=== PATIENT | male | born 1930 | race Caucasian/White ===

== ENCOUNTER 2017-03-20 11:53 | Emergency (ER) | payer MEDICARE, OTHER ==
--- NOTE | 2017-03-20 12:20 | EDM.PDOC ---
ED HPI GENERAL MEDICAL PROBLEM - General Chief Complaint: Skin Complaint Stated Complaint: INFECTION Time Seen by Provider: 03/20/17 12:00 Source of Information: Reports: Patient, Family History Limitations: Reports: No Limitations - History of Present Illness INITIAL COMMENTS - FREE TEXT/NARRATIVE: 86 YO WM presents to clinic for ruiz catheter leaking around meatus. Daughter states she noticed some redness around the catheter site and wanted to have it evaluated. Pt denies any abdominal pain, no nausea/vomiting and no fever/ chills. Duration: Day(s): (3) Severity: Mild Improves with: Reports: None Worsens with: Reports: None Associated Symptoms: Reports: No Other Symptoms - Related Data Allergies Allergy/AdvReac Type Severity Reaction Status Date / Time No Known Allergies Allergy Verified 03/20/17 11:59 Home Meds: Home Meds Furosemide [Lasix] 20 mg PO WEEKLY 02/20/17 [History] Potassium Chloride 10 meq PO WEEKLY 02/20/17 [History] Finasteride [Proscar] 5 mg PO DAILY 03/20/17 [History] Nystatin [Nystatin Ointment] 30 gm TOP TID #30 tube 03/20/17 [Rx] Past Medical History HEENT History: Reports: Hard of Hearing, Impaired Vision Genitourinary History: Reports: BPH, Retention, Urinary, Other (See Below) Other Genitourinary History: Has ruiz replaced monthly Psychiatric History: Reports: Dementia Social & Family History - Tobacco Use Smoking Status *Q: Never Smoker Second Hand Smoke Exposure: No - Caffeine Use Caffeine Use: Reports: Coffee - Recreational Drug Use Recreational Drug Use: No ED ROS GENERAL - Review of Systems Review Of Systems: See Below Constitutional: Reports: No Symptoms HEENT: Reports: No Symptoms Respiratory: Reports: No Symptoms Cardiovascular: Reports: No Symptoms Endocrine: Reports: No Symptoms GI/Abdominal: Reports: No Symptoms : Reports: No Symptoms Musculoskeletal: Reports: No Symptoms Skin: Reports: Erythema (around glans) Neurological: Reports: No Symptoms Psychiatric: Reports: No Symptoms Hematologic/Lymphatic: Reports: No Symptoms Immunologic: Reports: No Symptoms ED EXAM, SKIN/RASH Exam: See Below Exam Limited By: No Limitations General Appearance: Alert, WD/WN, No Apparent Distress Head: Atraumatic, Normocephalic Neck: Normal Inspection, Supple, Non-Tender, Full Range of Motion Respiratory/Chest: No Respiratory Distress, Lungs Clear, Normal Breath Sounds, No Accessory Muscle Use, Chest Non-Tender Cardiovascular: Normal Peripheral Pulses, Regular Rate, Rhythm, No Edema, No Gallop, No JVD, No Murmur, No Rub GI/Abdominal: Normal Bowel Sounds, Soft, Non-Tender, No Organomegaly, No Distention, No Abnormal Bruit, No Mass (Male) Exam: Rash (erythema with moist white discharge from around the glans penis consistant with balanitis). No: Circumcised, Scrotal Swelling, Scrotum Tenderness (L), Scrotum Tenderness (R), Suprapubic Fullness, Testicular Mass, Testicular Tenderness (L), Testicular Tenderness (R), Urethral Discharge Back Exam: Normal Inspection, Full Range of Motion, NT Extremities: Normal Inspection, Normal Range of Motion, Non-Tender, No Pedal Edema, Normal Capillary Refill Neurological: Alert, Oriented, CN II-XII Intact, Normal Cognition, Normal Gait, Normal Reflexes, No Motor/Sensory Deficits Psychiatric: Normal Affect, Normal Mood Course - Orders/Labs/Meds Orders: Active Orders 24 hr Category Date Time Status Nystatin [Nystatin Ointment] Med 03/20/17 14:00 Ordered 30 gm TOP TID Medication Orders Nystatin (Nystatin Ointment) 30 gm TOP TID [facility] Meds: Medications Generic Name Dose Route Start Last Admin Trade Name Freq PRN Reason Stop Dose Admin Nystatin 30 gm 03/20/17 14:00 Nystatin Ointment TOP TID [facility] Departure - Departure Time of Disposition: 12:23 Disposition: Home, Self-Care 01 Condition: Good Clinical Impression: Balanitis - Discharge Information Prescriptions: Nystatin [Nystatin Ointment] 30 gm TOP TID #30 tube Instructions: Balanitis Referrals: Jean Kaur TECHNICAL SOLUTIONS DIRECTOR [Primary Care Provider] - Forms: ED Department Discharge - My Orders Last 24 Hours: My Active Orders 03/20/17 14:00 Nystatin [Nystatin Ointment] 30 gm TOP TID - Assessment/Plan Last 24 Hours: My Active Orders 03/20/17 14:00 Nystatin [Nystatin Ointment] 30 gm TOP TID Assessment:: 1. balanitis Plan: 1. nystatin ointment TID x 2-4 weeks 2. follow up with Dr Rup for consideration of suprapubic catheter 3. return to ER for worsening symptoms
[2017-03-20] MEDS ORDERED: Nystatin Ointment 15 GM Tube TOP SCH (14:00)
== END 2017-03-20 12:30 | disposition home or self-care (01) ==
LOC: KA.ED 11:53
DX: N48.1 Balanitis (principal)
CPT/HCPCS: 99283; A9270

== ENCOUNTER 2017-07-09 07:35 | Emergency (ER) | payer MEDICARE, OTHER ==
--- NOTE | 2017-07-09 08:31 | EDM.PDOC ---
ED HPI GENERAL MEDICAL PROBLEM - General Chief Complaint: Tube Replacement Stated Complaint: CATHETER Time Seen by Provider: 07/09/17 08:17 Source of Information: Reports: Patient, Family (daughters) History Limitations: Reports: Other (Patient has dementia and is poor historian) - History of Present Illness INITIAL COMMENTS - FREE TEXT/NARRATIVE: Patient brought to ER by daughters with complaint of blood from urethra around in dwelling ruiz catheter. They assume he was pulling on it and guess it is because he has a different bag on it than usual. Pt has advanced dementia and lives in an apartment with his . Patient is complaining repeatedly to me that he has terrible pain in the abdomen. He can't tell me much else. Family doesn't know how passage of stool and gas has been recently. Not aware of any fevers. He just finished a course of antibiotics (three days ago) for an assumed UTI that turned out to not be UTI. Daughter not aware of any kidney disease and he uses Ibuprofen prn at home. Patient would like something for the abdominal pain. - Related Data Allergies Allergy/AdvReac Type Severity Reaction Status Date / Time No Known Allergies Allergy Verified 07/09/17 11:52 Home Meds: Home Meds Furosemide [Lasix] 20 mg PO WEEKLY 02/20/17 [History] Potassium Chloride 10 meq PO WEEKLY 02/20/17 [History] Finasteride [Proscar] 5 mg PO DAILY 03/20/17 [History] Nystatin [Nystatin Ointment] 30 gm TOP TID #30 tube 03/20/17 [Rx] Past Medical History HEENT History: Reports: Hard of Hearing, Impaired Vision Genitourinary History: Reports: BPH, Retention, Urinary, Other (See Below) Other Genitourinary History: Has ruiz replaced monthly Psychiatric History: Reports: Dementia Social & Family History - Tobacco Use Smoking Status *Q: Never Smoker Second Hand Smoke Exposure: No - Caffeine Use Caffeine Use: Reports: Coffee - Recreational Drug Use Recreational Drug Use: No ED ROS GENERAL - Review of Systems Review Of Systems: Unable To Obtain (complete ROS is unobtainable but I got what I could) Constitutional: Denies: Fever Respiratory: Denies: Shortness of Breath Cardiovascular: Denies: Chest Pain GI/Abdominal: Reports: Abdominal Pain. Denies: Vomiting : Reports: Hematuria Skin: Denies: Cyanosis, Jaundice, Mottled, Pallor, Diaphoresis Neurological: Reports: Confusion Psychiatric: Reports: Agitation, Confusion ED EXAM, GENERAL - Physical Exam Exam: See Below Exam Limited By: Other (dementia) General Appearance: Alert, WD/WN Eye Exam: Bilateral Eye: EOMI, Normal Inspection, PERRL Ears: Normal External Exam, Hearing Grossly Normal Nose: Normal Inspection, No Blood Throat/Mouth: Normal Inspection, Normal Lips, Normal Voice, No Airway Compromise Head: Atraumatic, Normocephalic Neck: Normal Inspection, Full Range of Motion Respiratory/Chest: No Respiratory Distress, Lungs Clear, Normal Breath Sounds, No Accessory Muscle Use Cardiovascular: Regular Rate, Rhythm, Systolic Murmur GI/Abdominal: Distended, Tender (throughout to mild palpation; doesn't tolerate firm palpation and seems to be distension rather than rigidity.), Abnormal Bowel Sounds (decreased), Hernia (umbilical) Back Exam: CVA Tenderness (L) (mild). No: CVA Tenderness (R) Extremities: Normal Inspection, Normal Range of Motion, No Pedal Edema Neurological: Alert, No Motor/Sensory Deficits, Confused (chronic with dementia) Psychiatric: Anxious Skin Exam: Warm, Dry, Intact, Normal Color, No Rash Course - Vital Signs Last Recorded V/S: Last Vital Signs Temp 96.8 F 07/09/17 13:23 Pulse 94 07/09/17 13:23 Resp 20 07/09/17 13:23 BP 136/51 L 07/09/17 13:23 Pulse Ox 92 L 07/09/17 13:23 - Orders/Labs/Meds Orders: Active Orders 24 hr Category Date Time Status Abdomen 2V AP Upright Decub [CR] Stat Exams 07/09/17 08:31 Taken Abdomen Pelvis w Cont [CT] Stat Exams 07/09/17 10:24 Taken CXR [Chest 2V] [CR] Stat Exams 07/09/17 10:41 Taken CULTURE BLOOD [BC] Stat Lab 07/09/17 13:14 Ordered CULTURE BLOOD [BC] Stat Lab 07/09/17 13:14 Ordered Sodium Chloride 0.9% [Normal Saline] 50 ml Med 07/09/17 11:15 Active IV ASDIRECTED Blood Culture x2 Reflex Set [OM.PC] Stat Oth 07/09/17 13:14 Ordered NG [Nasogastric Orogastric Tube Insertion] [OM.PC] Oth 07/09/17 13:56 Ordered Routine Medication Orders Sodium Chloride (Normal Saline) 50 mls @ 200 mls/hr IV ASDIRECTED CHIKIS Last Admin: 07/09/17 12:26 Dose: 200 mls/hr Labs: Laboratory Tests 07/09/17 07/09/17 07/09/17 Range/Units 09:05 09:05 12:35 WBC 16.3 H (5.0-10.0) 10^3/uL RBC 4.76 (4.50-6.00) 10^6/uL Hgb 13.8 (13.0-17.0) g/dL Hct 42.9 (40.0-52.0) % MCV 90.0 (82.0-92.0) fL MCH 29.0 (27.0-31.0) pg MCHC 32.2 (32.0-36.0) g/dL RDW 13.9 (11.5-14.5) % Plt Count 193 (150-300) 10^3/uL MPV 8.3 (7.4-10.4) fL Neut % (Auto) 78.4 H (50.0-70.0) % Lymph % (Auto) 16.6 L (20.0-40.0) % Ida % (Auto) 4.7 (2.0-8.0) % Eos % (Auto) 0.1 L (1.0-3.0) % Baso % (Auto) 0.2 (0.0-1.0) % Neut # (Auto) 12.8 H (2.5-7.0) 10^3/uL Lymph # (Auto) 2.7 (1.0-4.0) 10^3/uL Ida # (Auto) 0.8 (0.1-0.8) 10^3/uL Eos # (Auto) 0.0 L (0.1-0.3) 10^3/uL Baso # (Auto) 0.0 (0.0-0.1) 10^3/uL Sodium 140 (136-145) mmol/L Potassium 4.3 (3.3-5.3) mmol/L Chloride 102 (98-115) mmol/L Carbon Dioxide 25.6 (21.0-32.0) mmol/L BUN 28 H (6-25) mg/dL Creatinine 1.75 H (0.51-1.17) mg/dL Est Cr Clr Drug Dosing TNP Estimated GFR (MDRD) 37 mL/min Glucose 162 H (70-110) mg/dL Lactic Acid (0.4-2.0) mmol/L Calcium 9.5 (8.7-10.3) mg/dL Total Bilirubin 0.9 (0.2-1.0) mg/dL AST 33 (15-37) U/L ALT 22 (12-78) U/L Alkaline Phosphatase 73 (46-116) IU/L Total Protein 8.1 (6.4-8.2) g/dL Albumin 3.76 (3.00-4.80) g/dL Specimen Type Urincath Urine Color Red H (YELLOW) Urine Appearance Slightly cloudy H (CLEAR) Urine pH >= 9.0 (5.0-9.0) Ur Specific [place] 1.015 (1.005-1.030) Urine Protein >=300 H (NEGATIVE) mg/dL Urine Glucose (UA) 100 H (NEGATIVE) mg/dL Urine Ketones Trace H (NEGATIVE) mg/dL Urine Occult Blood Large H (NEGATIVE) Urine Nitrite Positive H (NEGATIVE) Urine Bilirubin Moderate H (NEGATIVE) Urine Urobilinogen 0.2 (0.2-1.0) E.U./dL Ur Leukocyte Esterase Trace H (NEGATIVE) Urine RBC Not Reportable Urine WBC Not Reportable Urinalysis Comment See note 07/09/17 Range/Units 13:45 WBC (5.0-10.0) 10^3/uL RBC (4.50-6.00) 10^6/uL Hgb (13.0-17.0) g/dL Hct (40.0-52.0) % MCV (82.0-92.0) fL MCH (27.0-31.0) pg MCHC (32.0-36.0) g/dL RDW (11.5-14.5) % Plt Count (150-300) 10^3/uL MPV (7.4-10.4) fL Neut % (Auto) (50.0-70.0) % Lymph % (Auto) (20.0-40.0) % Ida % (Auto) (2.0-8.0) % Eos % (Auto) (1.0-3.0) % Baso % (Auto) (0.0-1.0) % Neut # (Auto) (2.5-7.0) 10^3/uL Lymph # (Auto) (1.0-4.0) 10^3/uL Ida # (Auto) (0.1-0.8) 10^3/uL Eos # (Auto) (0.1-0.3) 10^3/uL Baso # (Auto) (0.0-0.1) 10^3/uL Sodium (136-145) mmol/L Potassium (3.3-5.3) mmol/L Chloride (98-115) mmol/L Carbon Dioxide (21.0-32.0) mmol/L BUN (6-25) mg/dL Creatinine (0.51-1.17) mg/dL Est Cr Clr Drug Dosing Estimated GFR (MDRD) mL/min Glucose (70-110) mg/dL Lactic Acid 2.0 (0.4-2.0) mmol/L Calcium (8.7-10.3) mg/dL Total Bilirubin (0.2-1.0) mg/dL AST (15-37) U/L ALT (12-78) U/L Alkaline Phosphatase (46-116) IU/L Total Protein (6.4-8.2) g/dL Albumin (3.00-4.80) g/dL Specimen Type Urine Color (YELLOW) Urine Appearance (CLEAR) Urine pH (5.0-9.0) Ur Specific [place] (1.005-1.030) Urine Protein (NEGATIVE) mg/dL Urine Glucose (UA) (NEGATIVE) mg/dL Urine Ketones (NEGATIVE) mg/dL Urine Occult Blood (NEGATIVE) Urine Nitrite (NEGATIVE) Urine Bilirubin (NEGATIVE) Urine Urobilinogen (0.2-1.0) E.U./dL Ur Leukocyte Esterase (NEGATIVE) Urine RBC Urine WBC Urinalysis Comment Meds: Medications Generic Name Dose Route Start Last Admin Trade Name Freq PRN Reason Stop Dose Admin Sodium Chloride 50 mls @ 200 mls/hr 07/09/17 11:15 07/09/17 12:26 Normal Saline IV 200 mls/hr ASDIRECTED CHIKIS Administration Discontinued Medications Generic Name Dose Route Start Last Admin Trade Name Jim PRN Reason Stop Dose Admin Sodium Chloride 1,000 mls @ 999 mls/hr 07/09/17 10:23 07/09/17 11:13 Normal Saline IV 07/09/17 11:23 999 mls/hr .BOLUS ONE Administration Levofloxacin/Dextrose 500 mg/ 100 mls @ 100 mls/hr 07/09/17 13:38 07/09/17 13 :58 Premix IV 07/09/17 14:37 100 mls/hr ONETIME ONE Administration Iopamidol 75 ml 07/09/17 11:04 07/09/17 12:25 Isovue-300 (61%) IV 07/09/17 11:05 75 ml ONETIME ONE Administration Ketorolac Tromethamine 30 mg 07/09/17 08:38 07/09/17 08:54 Toradol IVPUSH 07/09/17 08:39 30 mg ONETIME ONE Administration - Re-Assessments/Exams Free Text/Narrative Re-Assessment/Exam: 07/09/17 10:19 Xrays show nonspecific gaseous distention of numerous small bowel loops in upper abdomen. Patient is much more comfortable after Toradol. He thinks he passed stool and gas yesterday but his daughters say that with his dementia he wouldn't be at all reliable historian with this. They don't know when last bowel movement was. Re-examination reveals persisting distension with some tenderness to palpation but less than prior to Toradol. Will proceed with CT to rule out obstruction. 07/09/17 10:42 Patient has no urge to pass stool or gas and isn't passing urine through the catheter. Bladder scan shows 286 cc. Will get CXR and UA and try to flush catheter. 07/09/17 13:39 WBC is 16.3, Radiologist called with CT results showing emphysematous cystitis, small bowel ileus without evidence of obstruction; ruiz catheter balloon is inflated within the prostatic urethra; prostate is massively enlarged. We are drawing blood cultures and lactic acid. Bladder scan, after changing out the ruiz and emptying urine, shows 186. Discussed with daughter and with Jean Kaur. Jean wants a urology phone consult before they decide to keep here and treat. Called [facility] in [place] but their urologist is OOT; called [facility] in [place] and am waiting for their return call. Daughter wants [place], not [place]. 07/09/17 14:56 NG tube was placed but xray shows it is in right lung so is being replaced. I discussed case with Dr. Selby (urologist at [facility]) as well as ER Dr. Pearson and will transfer him down for treatment and evaluation, likely including surgical consult. Patient has been stable throughout ER course and pain improved after Toradol but pain began to increase again which we are trying to relieve with NG tube as abdominal distension is significant. Pt's daughter tells me pt had an ileus for two weeks following a surgery in the past ; this concerns her quite a bit and after discussion requested transfer to [facility] in [place]. 07/09/17 15:04 Second attempt at NG tube placement was unsuccessful so will transfer without it. Lactic acid is 2.0, blood cultures pending. Ruiz catheter is advanced fully and still not able to produce urine. Levaquin 500 mg IV is completed. Departure - Departure Time of Disposition: 15:10 Disposition: DC/Tfer to Acute Hospital 02 Condition: Fair Clinical Impression: Ileus, unspecified, Emphysematous cystitis, Indwelling catheter present on admission, Hematuria due to cystitis, Prostatic enlargement, Abdominal distension (gaseous) UTI (urinary tract infection) Qualifiers: Urinary tract infection type: acute cystitis Hematuria presence: with hematuria Qualified Code(s): N30.01 - Acute cystitis with hematuria Dementia Qualifiers: Dementia type: unspecified type - Discharge Information Referrals: Jean Kaur, INTEGRATIVE MEDICINE PHYSICIAN [Primary Care Provider] - Forms: ED Department Discharge - My Orders Last 24 Hours: My Active Orders 07/09/17 08:31 Abdomen 2V AP Upright Decub [CR] Stat 07/09/17 10:24 Abdomen Pelvis w Cont [CT] Stat 07/09/17 10:41 CXR [Chest 2V] [CR] Stat 07/09/17 11:15 Sodium Chloride 0.9% [Normal Saline] 50 ml IV ASDIRECTED 07/09/17 13:14 CULTURE BLOOD [BC] Stat CULTURE BLOOD [BC] Stat Blood Culture x2 Reflex Set [OM.PC] Stat 07/09/17 13:56 NG [Nasogastric Orogastric Tube Insertion] [OM.PC] Routine - Assessment/Plan Last 24 Hours: My Active Orders 07/09/17 08:31 Abdomen 2V AP Upright Decub [CR] Stat 07/09/17 10:24 Abdomen Pelvis w Cont [CT] Stat 07/09/17 10:41 CXR [Chest 2V] [CR] Stat 07/09/17 11:15 Sodium Chloride 0.9% [Normal Saline] 50 ml IV ASDIRECTED 07/09/17 13:14 CULTURE BLOOD [BC] Stat CULTURE BLOOD [BC] Stat Blood Culture x2 Reflex Set [OM.PC] Stat 07/09/17 13:56 NG [Nasogastric Orogastric Tube Insertion] [OM.PC] Routine
[2017-07-09] MEDS ORDERED: Ketorolac 30 MG/ML SDV IVPUSH ONE (08:38)
[2017-07-09 09:45] LABS: CHLORIDE,CL 102 mmol/L (98-115); SODIUM,NA 140 mmol/L (136-145)
[2017-07-09] MEDS ORDERED: Sodium Chloride 0.9% 1,000 ML IV ONE (10:23)
[2017-07-09] MEDS ORDERED: Iopamidol 612 MG/ML 75 ML Bottle IV ONE (11:04)
[2017-07-09] MEDS ORDERED: Sodium Chloride 0.9% 50 ML IV SCH (11:15)
[2017-07-09] MEDS ORDERED: Levofloxacin/Dextrose 5%-Water 500 MG in Premix Bag 1 BAG IV ONE (13:38)
== END 2017-07-09 15:30 ==
LOC: KA.ED 07:35
DX: K56.7 Ileus, unspecified (principal); N40.1 Benign prostatic hyperplasia with lower urinary tract symptoms; N30.01 Acute cystitis with hematuria; F03.90 Unspecified dementia, unspecified severity, without behavioral disturbance, psychotic disturbance, mood disturbance, and anxiety; Z79.899 Other long term (current) drug therapy
CPT/HCPCS: 36415; 43753; 51701; 51702; 71046; 74021; 74177; 80053; 81001; 83605; 85025; 87040; 87077; 87186; 87205; 96361; 96365; 96375; 99284; 99285; J1885; J1956; J7030; J7050; Q9967

== ENCOUNTER 2017-07-15 13:27 | Inpatient (IN) | payer MEDICARE, OTHER ==
[2017-07-15] MEDS ORDERED: Sodium Chloride 0.9% 5 ML Syringe FLUSH PRN (15:14)
[2017-07-15] MEDS ORDERED: risperiDONE 0.25 MG Tab PO PRN (20:28)
[2017-07-15] MEDS ORDERED: Haloperidol Lactate 5 MG/ML SDV IM PRN (20:30)
[2017-07-15] MEDS ORDERED: Vancomycin 1 GM SDV ONE (21:48)
[2017-07-15] MEDS ORDERED: Sodium Chloride 0.9% 250 ML ONE (21:51)
[2017-07-16] MEDS: Finasteride 5 MG Tab PO SCH (09:00)
[2017-07-16] MEDS: Furosemide 20 MG Tab PO SCH (09:00)
[2017-07-16] MEDS: Potassium Chloride 20 MEQ Tab.ER PO SCH (09:12)
[2017-07-16] MEDS ORDERED: Sodium Chloride 0.9% 100 ML IV PRN (11:43)
[2017-07-16] MEDS ORDERED: risperiDONE 1 MG Tab PO PRN (11:45)
--- NOTE | 2017-07-16 11:52 | HP ---
PATIENT PROFILE: The patient is an 86-year-old patient with a history of urinary retention and indwelling Graham catheter for the last two years. The patient was transferred from the [facility] initially to [place] with diagnosis of complicated emphysematous cystitis, urinary retention, bleeding per urethra, and ileus. Initially, the patient was pulling on the catheter the night before admission to [place] and was subsequently noted to have bleeding outside the catheter and there was no urine in the bag. There were no fever, chills, or nausea, vomiting. He had normal couple bowel movements at [facility]. At the time of his admission to the [facility] in [place], the patient was found to have urinary tract infection with indwelling urethral catheter, urinary retention, enlarged prostate with urinary obstruction, complicated UTI, slight retention of bleeding in the urethra, acute kidney injury with creatinine of 1.98 and GFR of 32. Ileus. The patient was treated at [facility] with IV vancomycin for his urinary tract infection. Urological consultation from urologist, Dr. Selby was obtained. Dr. Selby recommended continuation and irrigation of the Graham catheter on a p.r.n. basis. The patient was diagnosed as having emphysematous cystitis. The patient is discharged back to our hospital and he arrived here yesterday. Examination is being performed today. PAST MEDICAL HISTORY: Enlarged prostate, urinary retention, chronic indwelling Graham catheter, paraphimosis, ileus, and dementia. He has had a history of appendectomy. He does have a history of BPH, congestive heart failure, malfunctioning of the Graham catheter, myocardial infarction, and urinary tract retention. PAST SURGICAL HISTORY: Appendectomy, colonoscopy, fracture surgery, and hernia repair. The patient has a previous history of negative bladder cancer, kidney cancer, nephrolithiasis, prostate cancer, and testicular cancer. SOCIAL HISTORY: He has never been a smoker. Does not use alcohol. He does have dementia. ALLERGIES: Penicillins. REVIEW OF SYSTEMS: HEAD: No complaints. EYES: No complaints. EARS, NOSE, AND THROAT: No complaints. NECK: No complaints. LUNGS: No complaints of coughing, wheezing. HEART: No complaints of chest pain, tachycardia. ABDOMEN: No complaints at this time. Recently had abdominal pain and ileus. EXTREMITIES: No complaints. NEUROLOGICAL: No complaints. UROLOGICAL: No complaints. PHYSICAL EXAMINATION: GENERAL: At the present time reveals him to be alert, sitting comfortably. VITAL SIGNS: His temperature is 97.6, oxygen saturation is 99.1%, blood pressure is 133/71, and respiratory rate is 20. HEAD: Normocephalic. EYES: Arcus senilis. EARS, NOSE, AND THROAT: Normal. NECK: Supple. Full range of motion. No midline swellings. Carotid pulses full and equal. Lymph nodes are not enlarged. HEART: Regular rhythm. There is a prominent 2/6 systolic murmur in the mitral area. LUNGS: Clinically clear to percussion and auscultation. ABDOMEN: Soft. No distention. Bowel tones are normal. EXTREMITIES: Normal. UROLOGICAL SYSTEM: The patient has a Graham catheter in place. RECTAL: Not performed as it was recently performed by the urologist in [place]. FINAL DIAGNOSES: 1. Recent acute urinary tract infection, currently being treated with vancomycin. 2. Benign prostatic hyperplasia with retention. 3. Complicated urinary tract infection. 4. Recent acute kidney injury. 5. Recent ileus. 6. Dementia. 7. Phimosis. 8. Remote history of appendectomy, colonoscopy, fracture surgery, hernia repair. 9. Remote diagnoses of congestive heart failure, myocardial infarction. PLAN: Plan will be to continue IV vancomycin and follow careful instruction and follow measures for urinary tract infection clearance and prophylaxis. /[id number]/[id number]
[2017-07-17] MEDS: Finasteride 5 MG Tab PO SCH (08:54)
[2017-07-18] MEDS: Finasteride 5 MG Tab PO SCH (09:26)
[2017-07-18] MEDS ORDERED: Bisacodyl 5 MG Tab PO PRN (15:26)
[2017-07-19] MEDS: Finasteride 5 MG Tab PO SCH (08:25)
[2017-07-19] MEDS: Furosemide 20 MG Tab PO SCH (08:25)
[2017-07-19] MEDS: Potassium Chloride 20 MEQ Tab.ER PO SCH (08:26)
[2017-07-20] MEDS: Finasteride 5 MG Tab PO SCH (08:33)
[2017-07-20] MEDS ORDERED: Sodium Chloride 0.9% 1,000 ML IV SCH (13:30)
[2017-07-21] MEDS: Potassium Chloride 20 MEQ Tab.ER PO SCH (08:35)
[2017-07-21] MEDS: Finasteride 5 MG Tab PO SCH (08:35)
[2017-07-21] MEDS: Furosemide 20 MG Tab PO SCH (08:35)
[2017-07-22] MEDS: Finasteride 5 MG Tab PO SCH (08:18)
[2017-07-22] MEDS: Potassium Bicarbonate/Potassium Chloride 25 MEQ Tab.Eff PO SCH ×2 (12:06→17:02)
--- OUTSIDE RECORDS SUMMARY | 2017-07-22 14:50 | XMSREPORT | Summary of Care ---
:1930 Author Organization [facility] Address [address] [place] [address] Phone Care Team Providers Name Role Phone Jean Kaur APRN-EXTRUSION DIE REPAIRER Attributed Provider Jean Kaur APRN-EXTRUSION DIE REPAIRER Primary Care Provider Reason for Visit Auth/Cert Status Reason Specialty Diagnoses / Procedures Referred By Contact Referred To Contact Encounter Details Date Type Department Care Team Description 07/09/2017 - Hospital Encounter [place] David Connell Urinary tract 07/15/2017 [facility] MD Jered infection associated [address] [place] [address] SAQIB 100 urethral catheter [phone] [place] [address] [phone] Allergies No Known Allergiesas of this encounter Medications Prescription Sig. Disp. Refills Start Date End Date Status furosemide (LASIX) Take 1 tablet (20 60 tablet 1 02/12/2017 Active 20 mg mg) by mouth 3 tabletIndications: times a week Chronic diastolic CHF (congestive heart failure) potassium chloride Take 1 tablet (20 90 tablet 0 02/12/2017 Active (KLOR-CON M20) 20 mEq) by mouth 3 MEQ CR times a week tabletIndications: Chronic diastolic CHF (congestive heart failure) finasteride Take 1 tablet (5 30 tablet 12 03/05/2017 Active (PROSCAR) 5 MG mg) by mouth 1 tabletIndications: time per day Malfunction of Ruiz catheter, initial encounter, Urinary retention, Chronic indwelling Ruiz catheter, Enlarged prostate with urinary obstruction ketoconazole Apply to affected 1 Tube 1 06/24/2017 Active (NIZORAL) 2 % area 1 time per creamIndications: day Fungal infection vancomycin 1,500 Administer 1,500 0 07/15/2017 07/23/19 Active mg in sodium mg intravenously 18 chloride 0.9% 250 Every 18 hours for mLIndications: 7 days Urinary tract infection associated with indwelling urethral catheter, initial encounter, MRSA bacteremia ciprofloxacin Take 1 tablet (500 20 tablet 0 06/29/2017 07/10/19 Discontinued (CIPRO) 500 mg mg) by mouth 2 18 tabletIndications: times a day Urinary tract infection associated with indwelling urethral catheter, initial encounter as of this encounter Active Problems Problem Noted Date MRSA bacteremia 07/13/2017 Ileus 07/09/2017 Urinary tract infection associated with indwelling urethral catheter 2017 Urinary retention 03/05/2017 Chronic indwelling Ruiz catheter 03/05/2017 Enlarged prostate with urinary obstruction 03/05/2017 Paraphimosis 03/05/2017 as of this encounter Resolved Problems Problem Noted Date Resolved Date Malfunction of Ruiz catheter 03/05/2017 06/07/2017 as of this encounter Immunizations Name Dates Previously Given Next Due FLU VACCINE HIGH DOSE 65YR+ 02/12/2017 Influenza Vaccine,unspecified 05/22/2016, 03/07/2015, 02/15/2014, 04/05/2013, 03/14/2012, 03/14/2009 as of this encounter Social History Tobacco Use Types Packs/Day Years Used Date Never Smoker Smokeless Tobacco: Never Used Alcohol Use Drinks/Week oz/Week Comments No Sex Assigned at Date Recorded Not on file as of this encounter Last Filed Vital Signs Vital Sign Reading Time Taken Blood Pressure 139/69 07/14/2017 10:00 PM [employer] Pulse 107 07/15/2017 4:00 AM [employer] WRITER Temperature 36.7 C (98.1 F) 07/15/2017 12:25 PM [employer]OR[employer] WRITER Respiratory Rate 25 07/14/2017 10:00 PM [employer]ORTS WRITER Oxygen Saturation 95% 07/15/2017 4:00 AM [employer]ORTS WRITER Inhaled Oxygen Concentration - - Weight 80.8 kg (178 lb 1.6 oz) 07/09/2017 5:27 PM [employer]ORTS WRITER Height 172.7 cm (5' 8") 07/09/2017 5:27 PM [employer]OR[employer] WRITER Body Mass Index 27.08 07/09/2017 5:27 PM SPORTS WRITER in this encounter Functional Status Functional Status Response Date of Assessment Is the person deaf or does he/she have serious difficulty Yes 07/09/2017 hearing? Is this person blind or does he/she have difficulty No 07/09/2017 seeing even when wearing glasses? Do you have difficulty with walking, balance, climbing No 07/09/2017 stairs, or had a fall in the last 3 months? Does the patient have difficulty dressing or bathing? No 07/09/2017 Because of a physical, mental, or emotional condition; Yes 07/09/2017 does this person have difficulty doing errands alone such as visiting a doctor's office or shopping? Cognitive Status Response Date of Assessment Because of a physical, mental, or emotional condition; Yes 07/09/2017 does this person have serious difficulty concentrating, remembering, or making decisions? as of this encounter Discharge Summaries Sancho Caceres APRN-CNP - 07/15/2017 10:47 AM CSTFormatting of this note may be different from the original. Discharge Summary Attending Physician: David Miller MD Admit Date: 07/09/2017 Discharge Date: 07/15/2017 [facility] Diagnoses Principal Problem: Urinary tract infection associated with indwelling urethral catheter Active Problems: Urinary retention Enlarged prostate with urinary obstruction Ileus MRSA bacteremia Resolved Problems: * No resolved hospital problems. * Discharge Exam General appearance - alert, well appearing, and in no distress Mental status - alert, oriented to person, place, and time Chest - clear to auscultation, no wheezes, rales or rhonchi, symmetric air entry Heart - S3 present, systolic murmur 3/6 at 2nd left intercostal space Abdomen - tenderness noted upon palpation Musculoskeletal - no joint tenderness or deformity Extremities - pedal edema 2 + Skin - normal coloration and turgor, no rashes, no suspicious skin lesions noted Preliminary Discharge Medications This list of medications is preliminary and tentative. Please see the After Visit Summary for the final and accurate medication list. Discharge Medication List START taking these medications START: vancomycin 1,500 mg in sodium chloride 0.9% 250 mL Dose: 1500 mg Administer 1,500 mg intravenously Every 18 hours for 7 days CONTINUE taking these medications which have NOT CHANGED CONTINUE: finasteride 5 MG tablet Commonly known as: PROSCAR Dose: 5 mg Take 1 tablet (5 mg) by mouth 1 time per day CONTINUE: furosemide 20 mg tablet Commonly known as: LASIX Dose: 20 mg Take 1 tablet (20 mg) by mouth 3 times a week CONTINUE: ketoconazole 2 % cream Commonly known as: NIZORAL Apply to affected area 1 time per day CONTINUE: potassium chloride 20 MEQ CR tablet Commonly known as: KLOR-CON M20 Dose: 20 mEq Take 1 tablet (20 mEq) by mouth 3 times a week Where to Get Your Medications Information about where to get these medications is not yet available ! Ask your nurse or doctor about these medications vancomycin 1,500 mg in sodium chloride 0.9% 250 mL Procedures Performed and Findings * No surgery found * Consultations Obtained CONSULT PHYSICIAN CONSULT PHYSICIAN INFECTION CONTROL REFERRAL VANCOMYCIN: PHARMACY TO DOSE PICC PLACEMENT REFERRAL Code Status Full Code Discharge Disposition ADULT Discharge Planning: Swingbed, Skilled (20, 19) Diet on Discharge Surgical soft diet Activity on Discharge Activity as tolerated Discharge Instructions Tests Pending at Discharge Future Lab Orders Start Ordered 07/15/17 0000 VANCOMYCIN TROUGH Routine Comments: At 1600 prior to 1700 vancomycin dose 07/15/17 1134 Follow-Up Scheduled Contact information for follow-up [address] [address] Instructions: The doctor will be following you in [facility] , The doctor will be following you in [facility] Hospital Course 86 year old male was admitted on 07/09/17 for a complicated UTI, urinary retention, RITCHIE, and ileus.During the hospital stay blood cultures were obtained , abdominal CT showing emphysematous cystitis, and urinary obstruction. Ruiz catheter was placed prior to arrival. Labs were monitored during admission. IV hydration, IV antibiotics given during stay. Surgical consult discussed ileus plan which included: ambulation, and advancing diet as tolerated. Urology consult advised to keep ruiz in place, monitor labs, change ruiz every month, and monitor. Blood cultures came back positive for MRSA so will plan to finish out antibiotic therapy for 14 days with IV vancomycin. Patient stable and OK todischarge to intermediate, he verbalized understanding of the plan of care. Associated attestation - Erik Lucia MD - 07/15/2017 11:49 AM CSTPatient was seen and examined. Agree with PA note and plan One exam Pt is feeling better Heart RRR Lungs CTA abd soft Ruiz in Will transfer to swing bed in this encounter Progress Notes Erik Lucia MD - 07/15/2017 7:47 AM CSTFormatting of this note may be different from the original. Hospital Progress Note Rod Jorgensen is a 86yr old male admitted on 07/09/2017. Assessment / Plan Principal Problem: Urinary tract infection associated with indwelling urethral catheter Active Problems: Urinary retention Enlarged prostate with urinary obstruction Ileus MRSA bacteremia Resolved Problems: * No resolved hospital problems. * Plan: maybe to [place] if bed available today Will finish out 14 days of Vanc Estimated Discharge Date: ? HPI / History / ROS HPI Patient states is doing well this am Talked to him about rehab and seemed ok with that Is eating fair Mood is good Soon to rehab Review of Systems Constitutional: Negative. HENT: Negative. Eyes: Negative. Respiratory: Negative. Gastrointestinal: Negative. Endocrine: Negative. Genitourinary: Negative. Musculoskeletal: Negative. Skin: Negative. Allergic/Immunologic: Negative. Neurological: Negative. Hematological: Negative. Psychiatric/Behavioral: Negative. Physical / Results Current Vital Signs Temp: 98.4 F (36.9 C) BP: 139/69 Weight: 80.8 kg (178 lb 1.6 oz) SpO2: 95 % Resp: 25 Pulse: 107 Current BMI (>50=increased risk): 27.09 O2 Device: Room Air O2 Flow Rate (L/min): 1 l/min Pain Ratin Physical Exam Constitutional: He is oriented to person, place, and time. He appears well- developed and well-nourished. No distress. HENT: Head: Normocephalic. Eyes: Pupils are equal, round, and reactive to light. Neck: Normal range of motion. Cardiovascular: Normal rate, regular rhythm, normal heart sounds and intact distal pulses. Pulmonary/Chest: Effort normal and breath sounds normal. No respiratory distress. He has no wheezes.He has no rales. He exhibits no tenderness. Abdominal: Soft. Bowel sounds are normal. He exhibits no distension and no mass. There is no tenderness. There is no rebound and no guarding. Musculoskeletal: Normal range of motion. Neurological: He is alert and oriented to person, place, and time. He has normal reflexes. Skin: Skin is warm. Psychiatric: He has a normal mood and affect. His behavior is normal. Judgment and thought content normal. Erik Lucia MD - 07/14/2017 8:06 AM CSTFormatting of this note may be different from the original. Hospital Progress Note Rod Jorgensen is a 86yr old male admitted on 07/09/2017. Assessment / Plan Principal Problem: Urinary tract infection associated with indwelling urethral catheter Active Problems: Urinary retention Enlarged prostate with urinary obstruction Ileus MRSA bacteremia Resolved Problems: * No resolved hospital problems. * Plan: may be coming close to going to rehab and will need PICC line Since will need to complete full 2 weeks vanc Estimated Discharge Date: ? HPI / History / ROS HPI Slept ok Mood is better No c/o of pain this am Talked to him about needing full 2 weeks of vanc for MRSA in urine/blood and That would could finish this in rehab Review of Systems Constitutional: Negative. HENT: Negative. Eyes: Negative. Respiratory: Negative. Gastrointestinal: Negative. Endocrine: Negative. Genitourinary: Negative. Musculoskeletal: Negative. Skin: Negative. Allergic/Immunologic: Negative. Neurological: Negative. Hematological: Negative. Psychiatric/Behavioral: Negative. Physical / Results Current Vital Signs Temp: 98.2 F (36.8 C) BP: 139/90 Weight: 80.8 kg (178 lb 1.6 oz) SpO2: 96 % Resp: 26 Pulse: 86 Current BMI (>50=increased risk): 27.09 O2 Device: Room Air O2 Flow Rate (L/min): 1 l/min Pain Ratin Physical Exam Constitutional: He is oriented to person, place, and time. He appears well- developed and well-nourished. No distress. HENT: Head: Normocephalic. Eyes: Pupils are equal, round, and reactive to light. Neck: Normal range of motion. Cardiovascular: Normal rate, regular rhythm and intact distal pulses. Murmur heard. Pulmonary/Chest: Effort normal and breath sounds normal. No respiratory distress. He has no wheezes.He has no rales. He exhibits no tenderness. Abdominal: Soft. Bowel sounds are normal. He exhibits no distension and no mass. There is no tenderness. There is no rebound and no guarding. Musculoskeletal: Normal range of motion. Neurological: He is alert and oriented to person, place, and time. He has normal reflexes. Skin: Skin is warm. Psychiatric: He has a normal mood and affect. His behavior is normal. Judgment and thought content normal. Charley Cannon MD - 07/13/2017 11:36 AM CSTFormatting of this note may be different from the original. DAILY PROGRESS NOTE Rod Jorgensen is a 86yr old male admitted on 07/09/2017. Subjective Multiple BM overnight Denies abdominal pain unless someone "pushing on it" Ambulating Passing flatus Denies hunger No nausea Medications Current Facility-Administered Medications Medication Dose Route Frequency vancomycin 1,500 mg in sodium chloride 0.9% 250 mL 1,500 mg IV Every 24 hours finasteride (PROSCAR) tablet 5 mg 5 mg Oral daily furosemide (LASIX) tablet 20 mg 20 mg Oral 1 time a day Wed potassium chloride (KLOR-CON M20) CR tablet 20 mEq 20 mEq Oral 1 time a day Wed sodium chloride flush 0.9% 10 mL 10 mL IV As often as necessary prn sodium chloride 0.9% IV solution IV Continuous fentaNYL 100 mcg/2 mL preservative free injection solution 25 mcg 25 mcg IV When indicated every 6 hours prn OBJECTIVE Current Vital Signs Temp: 98.5 F (36.9 C) BP: 146/73 Pulse: 118 O2 Device: Room Air O2 Flow Rate (L/min): 1 l/min Resp: 22 Pain Ratin (out of 10) Weight: 80.8 kg (178 lb 1.6 oz) SpO2: 96 % Vitals Min/Max Last 24 Hours Vital Signs Min/Max (last 24 hours) Flowsheet Row Name Min Max Temp 97.7 F (36.5 C) 98.7 F (37.1 C) BP: Systolic 118 159 BP: Diastolic 58 89 Pulse 73 125 Resp 20 35 SpO2 91 % 96 % MAP (mm Hg) 73 mm Hg 99 mm Hg Intake and Output Last 24 Hours 07/12 0700 - 07/13 0659 In: 490 Out: 950 Lines and Drains Patient Lines/Drains/Airways Status Active Lines Name: Placement date: Placement time: Site: Days: Peripheral IV 07/13/17 Forearm Left 07/13/17 0040 Forearm less than 1 Urinary Catheter 07/09/17 Ruiz 07/09/17 2040 3 Physical Exam Blood pressure 146/73, pulse 118, temperature 98.5 F (36.9 C), resp. rate 22 , height 172.7 cm (68"), weight 80.8 kg (178 lb 1.6 oz), SpO2 96 %. General: Comfortable appearing Abd: Softer than yesterday, minimal diffuse tenderness on examination - improved, no guarding Diagnostics and Labs Labs (Last day) 07/12/172300 - 07/12/172300 CHEMISTRY 07/12/172300 CHEMISTRY Creatinine 0.50-1.30 (mg/dL) 0.47 eGFR (mL/min/1.73m2) >90 eGFR Non- (mL/min/1.73m2) >90 07/12/172300 - 07/12/172300 THERAPEUTIC DRUGS MISC 07/12/172300 THERAPEUTIC DRUGS MISC Vancomycin Trough 10.0-20.0 (ug/mL) 8.1 07/12/172300 - 07/12/172300 OTHER 07/12/172300 OTHER Age (Years) 86 ASSESSMENT & PLAN 86 yo M with UTI, chronic ruiz, ileus - ileus resolved - free air / fluid possible leak from bladder leak at the base of bladder? - ok to advance diet - urology following MD Rea Navarro Steven T, MD - 07/13/2017 8:49 AM CSTFormatting of this note may be different from the original. Hospital Progress Note Rod Jorgensen is a 86yr old male admitted on 07/09/2017. Assessment / Plan Principal Problem: Urinary tract infection associated with indwelling urethral catheter Active Problems: Urinary retention Enlarged prostate with urinary obstruction Ileus MRSA bacteremia Resolved Problems: * No resolved hospital problems. * Plan: will discuss CT findings with Dr Selby Earlier she had told me treatment would be catheter and antibiotics and time continuing him on Vancomycin because of MRSA in urine and one + blood culture HPI / History / ROS HPI Patient had no complaints this am No fever Is eating small amount of food CT cystogram is hinting that there has been leakage from bladder to pelvis We are continuing him on Vancomycin because of MRSA in urine and one + blood culture CT report IMPRESSION: 1. Ruiz catheter appears to be within the urinary bladder and has been appropriately repositioned on comparison to prior study. 2. Urinary bladder wall thickening with multiple small trabeculations/small diverticula. 3. Air within the bladder is due to the catheterization. Small specks of air along the bladder wall may be due to emphysematous cystitis as thought previously or may be air within the small trabeculations. 4. Cystogram images show a possible leak at the base of the bladder which extends posteriorly into the enlarged prostate. 5. Inadequate emptying of the urinary bladder on the post void images. 6. Small amount of free fluid in the abdomen and pelvis which was also noted previously though appears slightly more than on prior study. 7. Small specks of air within the free fluid may be free intraperitoneal air related to the same etiology as the free fluid. However the small bowel loops are not adequately opacified and some of this air thought to be free air may be air within the small bowel loops. Recommend clinical correlation and consider follow-up CT imaging of the abdomen and pelvis as necessary. 8. Mildly prominent fluid-filled small bowel loops and fluid-filled right colonic loops that are partly visualized, is a nonspecific appearance. This may be due to ileus or enteritis. 9. Enlarged prostate with prostatic calcifications. High attenuation foci along the posterior surface of the bladder were also seen on prior study and may also be due to the calcifications. Review of Systems Constitutional: Negative. HENT: Negative. Eyes: Negative. Respiratory: Negative. Gastrointestinal: Negative. Endocrine: Negative. Genitourinary: Negative. Musculoskeletal: Negative. Skin: Negative. Allergic/Immunologic: Negative. Neurological: Negative. Hematological: Negative. Psychiatric/Behavioral: Negative. Physical / Results Current Vital Signs Temp: 98.4 F (36.9 C) BP: 153/74 Weight: 80.8 kg (178 lb 1.6 oz) SpO2: 95 % Resp: 23 Pulse: 86 Current BMI (>50=increased risk): 27.09 O2 Device: Room Air O2 Flow Rate (L/min): 1 l/min Pain Ratin Physical Exam Constitutional: He appears well-developed and well-nourished. No distress. HENT: Head: Normocephalic. Neck: Normal range of motion. Cardiovascular: Normal rate, regular rhythm, normal heart sounds and intact distal pulses. Pulmonary/Chest: Effort normal and breath sounds normal. No respiratory distress. He has no wheezes.He has no rales. He exhibits no tenderness. Abdominal: Soft. Bowel sounds are normal. He exhibits no distension and no mass. There is no tenderness. There is no rebound and no guarding. Musculoskeletal: Normal range of motion. Neurological: He is alert. Skin: Skin is warm. Psychiatric: He has a normal mood and affect. Charley Cannon MD - 07/12/2017 12:13 PM CSTFormatting of this note may be different from the original. DAILY PROGRESS NOTE Rod Jorgensen is a 86yr old male admitted on 07/09/2017. Subjective Denies abdo pain Does not feel bloated Belching +BM Unable to recall passing flatus Medications Current Facility-Administered Medications Medication Dose Route Frequency finasteride (PROSCAR) tablet 5 mg 5 mg Oral daily furosemide (LASIX) tablet 20 mg 20 mg Oral 1 time a day Wed potassium chloride (KLOR-CON M20) CR tablet 20 mEq 20 mEq Oral 1 time a day Wed vancomycin 1,250 mg in sodium chloride 0.9% 250 mL 1,250 mg IV Every 24 hours sodium chloride flush 0.9% 10 mL 10 mL IV As often as necessary prn sodium chloride 0.9% IV solution IV Continuous fentaNYL 100 mcg/2 mL preservative free injection solution 25 mcg 25 mcg IV When indicated every 6 hours prn OBJECTIVE Current Vital Signs Temp: 98.6 F (37 C) BP: 159/83 Pulse: 112 O2 Device: Room Air O2 Flow Rate (L/min): 1 l/min Resp: 20 Pain Ratin (out of 10) Weight: 80.8 kg (178 lb 1.6 oz) SpO2: 95 % Vitals Min/Max Last 24 Hours Vital Signs Min/Max (last 24 hours) Flowsheet Row Name Min Max Temp 97.8 F (36.6 C) 98.6 F (37 C) BP: Systolic 140 159 BP: Diastolic 66 83 Pulse 88 117 Resp 20 31 SpO2 90 % 97 % MAP (mm Hg) 84 mm Hg 101 mm Hg Intake and Output Last 24 Hours 07/11 0700 - 07/12 0659 In: 3082 Out: 1050 Lines and Drains Patient Lines/Drains/Airways Status Active Lines Name: Placement date: Placement time: Site: Days: Peripheral IV 07/09/17 Forearm Right 07/09/172199 Forearm 2 Urinary Catheter 07/09/17 Ruiz 07/09/172039 2 Physical Exam Blood pressure 159/83, pulse 112, temperature 98.6 F (37 C), resp. rate 20, height 172.7 cm (68"), weight 80.8 kg (178 lb 1.6 oz), SpO2 95 %. HR high 90s while in room Belching in room Abd: Soft, distended, diffusely tender, no guarding, no rebound tenderness Diagnostics and Labs Labs (Last day) No results found within the past day. ASSESSMENT & PLAN 86 yo M with cystitis, chronic ruiz, ileus Still appears to have some distension from ileus Ok with fulls, hold off on advancing diet just yet Continue with ambulation Urology following MD Rea Navarro, Erik Benz MD - 07/12/2017 8:06 AM CSTFormatting of this note may be different from the original. Hospital Progress Note Rod Jorgensen is a 86yr old male admitted on 07/09/2017. Assessment / Plan Principal Problem: Urinary tract infection associated with indwelling urethral catheter Active Problems: Urinary retention Enlarged prostate with urinary obstruction Ileus Resolved Problems: * No resolved hospital problems. * Plan: get CT cystogram to look for bladder injury Estimated Discharge Date: ? HPI / History / ROS HPI Slept ok Urine out put continues Will see if can get CT cystogram to check bladder Mood is good Slept good Review of Systems Constitutional: Negative. HENT: Negative. Eyes: Negative. Respiratory: Negative. Gastrointestinal: Negative. Endocrine: Negative. Genitourinary: Negative. Musculoskeletal: Negative. Skin: Negative. Allergic/Immunologic: Negative. Neurological: Negative. Hematological: Negative. Psychiatric/Behavioral: Negative. Physical / Results Current Vital Signs Temp: 98.6 F (37 C) BP: 159/83 Weight: 80.8 kg (178 lb 1.6 oz) SpO2: 94 % Resp: 20 Pulse: 97 Current BMI (>50=increased risk): 27.09 O2 Device: Room Air O2 Flow Rate (L/min): 1 l/min Pain Ratin Physical Exam Constitutional: He is oriented to person, place, and time. He appears well- developed and well-nourished. No distress. HENT: Head: Normocephalic. Eyes: Pupils are equal, round, and reactive to light. Neck: Normal range of motion. Cardiovascular: Normal rate, regular rhythm, normal heart sounds and intact distal pulses. Pulmonary/Chest: Effort normal and breath sounds normal. No respiratory distress. He has no wheezes.He has no rales. He exhibits no tenderness. Abdominal: Soft. Bowel sounds are normal. He exhibits no distension and no mass. There is no tenderness. There is no rebound and no guarding. Musculoskeletal: Normal range of motion. Neurological: He is alert and oriented to person, place, and time. He has normal reflexes. Skin: Skin is warm. Psychiatric: He has a normal mood and affect. His behavior is normal. Judgment and thought content normal. Kathi Selby MD - 07/11/2017 2:31 PM CSTHD #3 Meropenem and vanco day #3 Pt sitting up in chair with daughter in room Pt denies pain, fever or chills He reports bm and flatus Vitals and labs reviewed Imp/plan: 1. UTI 2. Chronic indwelling Ruiz with previous Ruiz in prostate 3. Bladder stone on recent CT 4. Pelvic fluid on recent CT 5. Stable min elevated creat 6. Elevated WBC 7. Dementia -continue antibiotics for now -cultures will be avail in am -continue Ruiz -pt may benefit from CT cystogram to eval pelvic fluid--if extra-peritoneal bladder rupture is present treatment would be Ruiz bladder drainage -abd films on 07-10-17 without evidence of ground glass appearance c/w intraperitoneal bladder rupture -recheck labs in am -The pt is aware they will always have bacteria in the urine with a catheter in place and should only be treated when symptomatic with fevers, chills, flank pain, change in urine, etc. -if urine is cloudy could consider bladder irrigation with water or saline -if bladder infection is diagnosed could consider intravesical gent, Ancef, etc -family currently declines bladder stone treatment -pt to consider SPT -continue Ruiz change monthly -The pt is in agreement with the above plan, questions answeredSparat, Patricio Gomez DO - 07/11/2017 12:46 PM CSTFormatting of this note may be different from the original. Hospital Progress Note Rod Jorgensen is a 86yr old male admitted on 07/09/2017. Assessment / Plan Principal Problem: Urinary tract infection associated with indwelling urethral catheter Active Problems: Urinary retention Enlarged prostate with urinary obstruction Ileus Resolved Problems: * No resolved hospital problems. * Plan: Full liquid diet with toast. Ambulate 4 times per day. Avoid excessive narcotics. May benefit from stool softener/suppository. Patient with history of chronic constipation. We'll follow peripherally Patricio Beckham, DO HPI / History / ROS HPI Large bowel movement this morning. Passing flatus. No nausea or vomiting with clear liquids. Still having abdominal distention with pain however when questioned, patient states that this is his normal at least for the last few months. Afebrile. Patient hungry and asking for more food. Review of Systems Constitutional: Negative for appetite change and unexpected weight change. Gastrointestinal: Positive for abdominal distention and abdominal pain. Negative for vomiting. All other systems reviewed and are negative. Physical / Results Current Vital Signs Temp: 99.4 F (37.4 C) BP: 155/73 Weight: 80.8 kg (178 lb 1.6 oz) SpO2: 91 % Resp: 28 Pulse: 94 Current BMI (>50=increased risk): 27.09 O2 Device: NC - no humidity O2 Flow Rate (L/min): 1 l/min Pain Ratin Physical Exam Constitutional: He is oriented to person, place, and time. He appears well- developed and well-nourished. No distress. Abdominal: Soft. Bowel sounds are normal. He exhibits distension. There is generalized tenderness. There is no rebound and no guarding. Neurological: He is alert and oriented to person, place, and time. Skin: Skin is warm and dry. He is not diaphoretic. No erythema. Psychiatric: He has a normal mood and affect. His behavior is normal. Judgment and thought content normal. Nursing note and vitals reviewed. Erik Lucia MD - 07/11/2017 9:26 AM CSTFormatting of this note may be different from the original. Hospital Progress Note Rod Jorgensen is a 86yr old male admitted on 07/09/2017. Assessment / Plan Principal Problem: Urinary tract infection associated with indwelling urethral catheter Active Problems: Urinary retention Enlarged prostate with urinary obstruction Ileus Resolved Problems: * No resolved hospital problems. * Plan: continue his iv antibiotics Estimated Discharge Date: 1-3 days HPI / History / ROS HPI Feels weak Mood is fair Is up in chair Ruiz is draining and no blood Review of Systems Constitutional: Negative. HENT: Negative. Eyes: Negative. Respiratory: Negative. Cardiovascular: Positive for palpitations. Gastrointestinal: Negative. Endocrine: Negative. Genitourinary: Negative. Musculoskeletal: Negative. Skin: Negative. Allergic/Immunologic: Negative. Neurological: Negative. Hematological: Negative. Psychiatric/Behavioral: Negative. Physical / Results Current Vital Signs Temp: 99.4 F (37.4 C) BP: 155/73 Weight: 80.8 kg (178 lb 1.6 oz) SpO2: 93 % Resp: 30 Pulse: 98 Current BMI (>50=increased risk): 27.09 O2 Device: NC - no humidity O2 Flow Rate (L/min): 1 l/min Pain Ratin Physical Exam Constitutional: He is oriented to person, place, and time. He appears well- developed and well-nourished. No distress. Neck: Normal range of motion. Cardiovascular: Normal rate, regular rhythm, normal heart sounds and intact distal pulses. Pulmonary/Chest: Effort normal and breath sounds normal. No respiratory distress. He has no wheezes.He has no rales. He exhibits no tenderness. Abdominal: Soft. Bowel sounds are normal. He exhibits no distension and no mass. There is no tenderness. There is no rebound and no guarding. Musculoskeletal: Normal range of motion. Neurological: He is alert and oriented to person, place, and time. He has normal reflexes. Skin: Skin is warm. Psychiatric: He has a normal mood and affect. His behavior is normal. Judgment and thought content normal. Erik Lucia MD - 07/10/2017 10:07 AM CSTFormatting of this note may be different from the original. Hospital Progress Note Rod Jorgensen is a 86yr old male admitted on 07/09/2017. Assessment / Plan Principal Problem: Urinary tract infection associated with indwelling urethral catheter Active Problems: Urinary retention Enlarged prostate with urinary obstruction Ileus Resolved Problems: * No resolved hospital problems. * Plan: cont antibiotic for bladder wall infection Clear liquids Cont ruiz Estimated Discharge Date: 2-3 days HPI / History / ROS HPI Feels better this am Urine out put from ruiz Still some lower abd pain CT + air in bladder wall Review of Systems Constitutional: Negative. HENT: Negative. Eyes: Negative. Respiratory: Negative. Gastrointestinal: Negative. Endocrine: Negative. Genitourinary: Positive for difficulty urinating. Having some pelvic pain Musculoskeletal: Negative. Skin: Negative. Allergic/Immunologic: Negative. Neurological: Negative. Hematological: Negative. Psychiatric/Behavioral: Negative. Physical / Results Current Vital Signs Temp: 98.3 F (36.8 C) BP: 106/52 Weight: 80.8 kg (178 lb 1.6 oz) SpO2: 94 % Resp: 24 Pulse: 91 Current BMI (>50=increased risk): 27.09 O2 Device: Room Air O2 Flow Rate (L/min): 1 l/min Pain Ratin Physical Exam Constitutional: He is oriented to person, place, and time. No distress. thin HENT: Head: Normocephalic. Eyes: Pupils are equal, round, and reactive to light. Neck: Normal range of motion. Cardiovascular: Normal rate and regular rhythm. Pulmonary/Chest: Effort normal and breath sounds normal. No respiratory distress. He has no wheezes.He has no rales. He exhibits no tenderness. Abdominal: Soft. Bowel sounds are normal. He exhibits no distension and no mass. There is tenderness. There is no rebound and no guarding. Musculoskeletal: Normal range of motion. Neurological: He is alert and oriented to person, place, and time. He has normal reflexes. Skin: Skin is warm. Psychiatric: He has a normal mood and affect. His behavior is normal. Judgment and thought content normal. in this encounter Plan of Treatment Name Priority Associated Diagnoses Date/Time CULTURE, BLOOD Routine 07/09/2017 7:47 PM SPORTS WRITER Name Priority Associated Diagnoses Order Schedule VANCOMYCIN TROUGH Routine Urinary tract infection Expected: 07/16/2017 associated with indwelling (Approximate), Expires: urethral catheter, initial 08/15/2018 encounter MRSA bacteremia Health Maintenance Due Date Last Done Comments Tetanus Vaccine 12/31/1948 Zoster Vaccine (#1) 1989 Pneumococcal 65yr+ Low/Med Risk (1 1994 of 2 - PCV13) Diabetes Screening 07/11/2020 07/11/2017, 07/10/2017, 07/09/2017 Influenza Vaccine Completed 02/12/2017, 05/22/2016, 03/07/2015, Additional history exists as of this encounter Procedures Procedure Name Priority Date/Time Associated Comments Diagnosis COLLECT AND HOLD Routine 07/15/2017 4:48 Results for this PANEL AM SPORTS WRITER procedure are in the results section. COLLECT AND HOLD SST Routine 07/15/2017 4:48 Results for this TOP TUBE AM SPORTS WRITER procedure are in the results section. COLLECT AND HOLD Routine 07/15/2017 4:48 Results for this LAVENDER (EDTA) TOP AM SPORTS WRITER procedure are in TUBE the results section. CREATININE Routine 07/15/2017 4:48 Results for this AM SPORTS WRITER procedure are in the results section. VANCOMYCIN TROUGH Timed Routine 07/15/2017 4:48 Results for this AM SPORTS WRITER procedure are in the results section. COLLECT AND HOLD Routine 07/14/2017 5:16 Results for this PANEL AM SPORTS WRITER procedure are in the results section. COLLECT AND HOLD Routine 07/14/2017 5:16 Results for this PANEL AM SPORTS WRITER procedure are in the results section. COLLECT AND HOLD SST Routine 07/14/2017 5:16 Results for this TOP TUBE AM SPORTS WRITER procedure are in the results section. COLLECT AND HOLD Routine 07/14/2017 5:16 Results for this LAVENDER (EDTA) TOP AM SPORTS WRITER procedure are in TUBE the results section. CREATININE Routine 07/14/2017 5:16 Results for this AM SPORTS WRITER procedure are in the results section. CREATININE Timed Routine 07/12/2017 11:01 Results for this PM SPORTS WRITER procedure are in the results section. VANCOMYCIN TROUGH Timed Routine 07/12/2017 11:01 Results for this PM SPORTS WRITER procedure are in the results section. COLLECT AND HOLD Routine 07/11/2017 5:30 Results for this PANEL AM SPORTS WRITER procedure are in the results section. LAB ONLY-COMPLETE Routine 07/11/2017 5:30 Results for this BLOOD COUNT WITH AM SPORTS WRITER procedure are in DIFFERENTIAL the results section. COLLECT AND HOLD Routine 07/11/2017 5:30 Results for this LAVENDER (EDTA) TOP AM SPORTS WRITER procedure are in TUBE the results section. CREATININE Routine 07/11/2017 5:30 Results for this AM SPORTS WRITER procedure are in the results section. BASIC METABOLIC PANEL Routine 07/11/2017 5:30 Results for this AM SPORTS WRITER procedure are in the results section. COMPLETE BLOOD COUNT Routine 07/11/2017 5:30 Results for this WITH DIFFERENTIAL AM SPORTS WRITER procedure are in the results section. COMPLETE BLOOD COUNT Routine 07/10/2017 11:58 Results for this WITHOUT DIFFERENTIAL AM SPORTS WRITER procedure are in the results section. BASIC METABOLIC PANEL Routine 07/10/2017 11:58 Results for this AM SPORTS WRITER procedure are in the results section. LAB ONLY-COMPLETE Routine 07/10/2017 5:53 Results for this BLOOD COUNT WITH AM SPORTS WRITER procedure are in DIFFERENTIAL the results section. CREATININE Routine 07/10/2017 5:53 Results for this AM SPORTS WRITER procedure are in the results section. COMPLETE BLOOD COUNT Routine 07/10/2017 5:53 Results for this WITH DIFFERENTIAL AM SPORTS WRITER procedure are in the results section. URINALYSIS, REFLEX TO Routine 07/09/2017 11:58 Results for this CULTURE PM SPORTS WRITER procedure are in the results section. LACTIC ACID Routine 07/09/2017 7:47 Results for this PM SPORTS WRITER procedure are in the results section. COMPREHENSIVE Routine 07/09/2017 7:47 Results for this METABOLIC PANEL PM SPORTS WRITER procedure are in the results section. in this encounter Results CREATININE (07/15/2017 4:48 AM) Component Value Ref Range Creatinine 0.37 (L) 0.50 - 1.30 mg/dL Age 86 Years eGFR Non- >90 mL/min/1.73m2 eGFR >90 mL/min/1.73m2 Comment: The estimated Glomerular Filtration Rate (eGFR) is calculated using the Abbreviated Modification of Diet in Renal Disease (MDRD) equation.The eGFR is reported out in mL/min. per 1.73 meter squared units. The National Kidney Foundation action value for patients without a diagnosis of chronic kidney disease is a eGFR of < 60 mL/min per 1.73M2. The National Kidney Foundation stages listed below apply to patients with a diagnosis of chronic kidney disease (defined as either kidney damage or eGFR &lt ;60 mL/min/1.73 m2 for 3 months).Kidney da mage is defined as pathologic abnormalities or markers of damage, including abnormalities in blood or urine tests or imaging studies.These stages apply to adults.No standardized classification has yet been established for pediatric patients. Stage eGFR in ml/min per 1.73M2 1 Kidney abnormality with normal or increased eGFR >or=90 2 Kidney abnormality with mild decreased eGFR 60-89 3 Moderately decreasedeGFR 30-59 4 Severely decreased eGFR 15-29 5 Kidney failure <15 The eGFR varies with age, sex, race and body size and normally decreases with age. Specimen Performing Laboratory Blood [facility] [address] [place] [address] COLLECT AND HOLD LAVENDER (EDTA) TOP TUBE (07/15/2017 4:48 AM) Component Value Ref Range Collect and Hold Specimen Status Comment: RECEIVED Specimen Performing Laboratory Blood [facility] [address] [place] [address] COLLECT AND HOLD SST TOP TUBE (07/15/2017 4:48 AM) Component Value Ref Range Collect and Hold Specimen Status Comment: RECEIVED Specimen Performing Laboratory Blood [facility] [address] [place] [address] COLLECT AND HOLD PANEL (07/15/2017 4:48 AM) Specimen Performing Laboratory Urine and Blood - Not Applicable Narrative The following orders were created for panel order COLLECT AND HOLD PANEL. Procedure Abnormality Status --------- ------ COLLECT AND HOLD SST TOP...[[id number]]Final result COLLECT AND HOLD LAVENDE...[[id number]]Final result Please view results for these tests on the individual orders. VANCOMYCIN TROUGH (07/15/2017 4:48 AM) Component Value Ref Range Vancomycin Trough 12.9 10.0 - 20.0 ug/mL Specimen Performing Laboratory Blood [facility] [address] [place] [address] COLLECT AND HOLD LAVENDER (EDTA) TOP TUBE (07/14/2017 5:16 AM) Component Value Ref Range Collect and Hold Specimen Status Comment: RECEIVED Specimen Performing Laboratory Blood [facility] [address] [place] [address] COLLECT AND HOLD PANEL (07/14/2017 5:16 AM) Specimen Performing Laboratory Urine and Blood - Not Applicable Narrative The following orders were created for panel order COLLECT AND HOLD PANEL. Procedure Abnormality Status --------- ------ COLLECT AND HOLD LAVENDE...[[id number]]Final result Please view results for these tests on the individual orders. COLLECT AND HOLD SST TOP TUBE (07/14/2017 5:16 AM) Component Value Ref Range Collect and Hold Specimen Status Comment: RECEIVED Specimen Performing Laboratory Blood [facility] [address] [place] [address] COLLECT AND HOLD PANEL (07/14/2017 5:16 AM) Specimen Performing Laboratory Urine and Blood - Not Applicable Narrative The following orders were created for panel order COLLECT AND HOLD PANEL. Procedure Abnormality Status --------- ------ COLLECT AND HOLD SST TOP...[[id number]]Final result Please view results for these tests on the individual orders. CREATININE (07/14/2017 5:16 AM) Component Value Ref Range Creatinine 0.44 (L) 0.50 - 1.30 mg/dL Age 86 Years eGFR Non- >90 mL/min/1.73m2 eGFR >90 mL/min/1.73m2 Comment: The estimated Glomerular Filtration Rate (eGFR) is calculated using the Abbreviated Modification of Diet in Renal Disease (MDRD) equation.The eGFR is reported out in mL/min. per 1.73 meter squared units. The National Kidney Foundation action value for patients without a diagnosis of chronic kidney disease is a eGFR of < 60 mL/min per 1.73M2. The National Kidney Foundation stages listed below apply to patients with a diagnosis of chronic kidney disease (defined as either kidney damage or eGFR &lt ;60 mL/min/1.73 m2 for 3 months).Kidney da mage is defined as pathologic abnormalities or markers of damage, including abnormalities in blood or urine tests or imaging studies.These stages apply to adults.No standardized classification has yet been established for pediatric patients. Stage eGFR in ml/min per 1.73M2 1 Kidney abnormality with normal or increased eGFR >or=90 2 Kidney abnormality with mild decreased eGFR 60-89 3 Moderately decreasedeGFR 30-59 4 Severely decreased eGFR 15-29 5 Kidney failure <15 The eGFR varies with age, sex, race and body size and normally decreases with age. Specimen Performing Laboratory Blood [facility] [address] [facility] [place] [address] CREATININE (07/12/2017 11:01 PM) Component Value Ref Range Creatinine 0.47 (L) 0.50 - 1.30 mg/dL Age 86 Years eGFR Non- >90 mL/min/1.73m2 eGFR >90 mL/min/1.73m2 Comment: The estimated Glomerular Filtration Rate (eGFR) is calculated using the Abbreviated Modification of Diet in Renal Disease (MDRD) equation.The eGFR is reported out in mL/min. per 1.73 meter squared units. The National Kidney Foundation action value for patients without a diagnosis of chronic kidney disease is a eGFR of < 60 mL/min per 1.73M2. The National Kidney Foundation stages listed below apply to patients with a diagnosis of chronic kidney disease (defined as either kidney damage or eGFR &lt ;60 mL/min/1.73 m2 for 3 months).Kidney da mage is defined as pathologic abnormalities or markers of damage, including abnormalities in blood or urine tests or imaging studies.These stages apply to adults.No standardized classification has yet been established for pediatric patients. Stage eGFR in ml/min per 1.73M2 1 Kidney abnormality with normal or increased eGFR >or=90 2 Kidney abnormality with mild decreased eGFR 60-89 3 Moderately decreasedeGFR 30-59 4 Severely decreased eGFR 15-29 5 Kidney failure <15 The eGFR varies with age, sex, race and body size and normally decreases with age. Specimen Performing Laboratory Blood [facility] [address] [place] [address] VANCOMYCIN TROUGH (07/12/2017 11:01 PM) Component Value Ref Range Vancomycin Trough 8.1 (L) 10.0 - 20.0 ug/mL Specimen Performing Laboratory Blood [facility] [address] [place] [address] CLOSTRIDIUM DIFFICILE BY NAAT (PCR/LAMP) (07/12/2017 7:29 PM) Component Value Ref Range Toxigenic C. difficile ([facility]) NegativeComment: No toxigenic C. difficle Negative detected. Specimen Performing Laboratory Feces [facility] [address] [place] [address] Narrative Testing was performed by Loop-Mediated Isothermal DNA Amplication (LAMP) method on the [employer]-[address] instrument. [address] CYSTOGRAM (07/12/2017 10:29 AM) Specimen Performing Laboratory PS360 Narrative Patient Name: ROD JORGENSEN Date of :1930 Procedure: CT CYSTOGRAM Date of Service: 07/12/2017 EXAM: CT CYSTOGRAM INDICATION: Fluid in pelvis, suspicion for bladder perforation TECHNIQUE: Axial images were obtained of the pelvis prior to administration of contrast. Dilute contrast (100 mL of Omnipaque 350 in 1000 mL of saline) was then instilled in the urinary bladder through the existing Ruiz catheter. 100 mL of this dilute contrast was instilled and the patient could not tolerate additional volume. Axial images were then obtained of the pelvis followed by drainage of the contrast and post void images were also obtained. Standard coronal and sagittal reformats obtained on a non-independent work station are available for review. COMPARISON(S): Prior CT of abdomen and pelvis dated 07/09/2017 from an outside facility. FINDINGS: PELVIS: Bladder: Prior to instillation of the contrast, the urinary bladder is nearly empty. There are high attenuation foci noted within the bladder which may be calcifications within the bladder. Ruiz catheter is noted within the bladder on this study and appears to have been repositioned on comparison to previous study. Air within the bladder is noted due to the catheterization. Possible small specks of air along the wall of the bladder also noted. On the cystogram images, contrast is seen within the urinary bladder. There is leakage of contrast noted at the base of the bladder and extending posteriorly into the enlarged prostate (image 48, series 4; images 72 -75, series 500; images 87-94, series 501). There are multiple small trabeculations and possible small diverticula noted along the surface of the bladder. Contrast could not be adequately drained and the post void images also show contrast within the urinary bladder. The previously noted contrast leakage on the cystogram images is faintly visualized on these images (image 50, series 6) possibly due to redistribution of the contrast. Reproductive Organs: Prostate is significantly enlarged measuring 7.3 x 6.3 x 7.2 cm. Prostatic calcifications are noted. High attenuation foci along the posterior surface of the prostate noted on the images prior to instillation of contrast (image 59 , series 2) also appear to be related to the prostatic calcifications. Gastrointestinal: There are fluid-filled, mildly prominent small bowel loops which are visualized on this study. There is also mild prominence of the right colonic loops which are fluid-filled. The visualized sigmoid colonic loops and rectum are nondistended. Contrast noted within the sigmoid colonic loops and the rectum from previous study. Scattered changes of colonic diverticulosis without evidence of diverticulitis. No bowel wall pneumatosis. There is small amount of free fluid noted. There are small specks of air noted (images 28 and 32, series 2) which appear to be in the region of the free fluid. Vascular: Mild atherosclerotic changes within the iliac arteries. Lymph Nodes: No significant lymphadenopathy in the areas scanned. Abdominal Wall: Umbilical hernia containing fat. Suggestion of small bilateral inguinal hernias containing fat. Bones: No acute osseous finding. Prior fixation of the left hip with artifacts related to the hardware. Mild generalized decrease in bone mineralization. Degenerative changes in the right hip and bilateral sacroiliac joints. Mild lumbar spondylosis. IMPRESSION: 1. Ruiz catheter appears to be within the urinary bladder and has been appropriately repositioned on comparison to prior study. 2. Urinary bladder wall thickening with multiple small trabeculations/small diverticula. 3. Air within the bladder is due to the catheterization. Small specks of air along the bladder wall may be due to emphysematous cystitis as thought previously or may be air within the small trabeculations. 4. Cystogram images show a possible leak at the base of the bladder which extends posteriorly into the enlarged prostate. 5. Inadequate emptying of the urinary bladder on the post void images. 6. Small amount of free fluid in the abdomen and pelvis which was also noted previously though appears slightly more than on prior study. 7. Small specks of air within the free fluid may be free intraperitoneal air related to the same etiology as the free fluid. However the small bowel loops are not adequately opacified and some of this air thought to be free air may be air within the small bowel loops. Recommend clinical correlation and consider follow-up CT imaging of the abdomen and pelvis as necessary. 8. Mildly prominent fluid-filled small bowel loops and fluid-filled right colonic loops that are partly visualized, is a nonspecific appearance. This may be due to ileus or enteritis. 9. Enlarged prostate with prostatic calcifications. High attenuation foci along the posterior surface of the prostate were also seen on prior study and may also be due to the calcifications. Appropriate radiation dose reduction devices and/or manual techniques for appropriate moderation of exposure was utilized. Finalized by: Jeanine Cruz MD on 07/13/2017 10:56 AM Patient/Procedure Information: [facility] MRN/CUATE: [id number] Order Number: [id number] Accession Number: [id number] Ordering Provider: ERIK LUCIA Authorizing Provider: ERIK LUCIA Procedure Note Interface, Radiantres - 07/13/2017 10:58 AM SPORTS WRITER Patient Name: ROD JORGENSEN Date of : 1930 Procedure: CT CYSTOGRAM Date of Service: 07/12/2017 EXAM: CT CYSTOGRAM INDICATION: Fluid in pelvis, suspicion for bladder perforation TECHNIQUE: Axial images were obtained of the pelvis prior to administration of contrast. Dilute contrast (100 mL of Omnipaque 350 in 1000 mL of saline) was then instilled in the urinary bladder through the existing Ruiz catheter. 100 mL of this dilute contrast was instilled and the patient could not tolerate additional volume. Axial images were then obtained of the pelvis followed by drainage of the contrast and post void images were also obtained. Standard coronal and sagittal reformats obtained on a non-independent work station are available for review. COMPARISON(S): Prior CT of abdomen and pelvis dated 07/09/2017 from an outside facility. FINDINGS: PELVIS: Bladder: Prior to instillation of the contrast, the urinary bladder is nearly empty. There are high attenuation foci noted within the bladder which may be calcifications within the bladder. Ruiz catheter is noted within the bladder on this study and appears to have been repositioned on comparison to previous study. Air within the bladder is noted due to the catheterization. Possible small specks of air along the wall of the bladder also noted. On the cystogram images, contrast is seen within the urinary bladder. There is leakage of contrast noted at the base of the bladder and extending posteriorly into the enlarged prostate (image 48, series 4; images 72-75, series 500; images 87-94, series 501). There are multiple small trabeculations and possible small diverticula noted along the surface of the bladder. Contrast could not be adequately drained and the post void images also show contrast within the urinary bladder. The previously noted contrast leakage on the cystogram images is faintly visualized on these images (image 50, series 6) possibly due to redistribution of the contrast. Reproductive Organs: Prostate is significantly enlarged measuring 7.3 x 6.3 x 7.2 cm. Prostatic calcifications are noted. High attenuation foci along the posterior surface of the prostate noted on the images prior to instillation of contrast (image 59, series 2) also appear to be related to the prostatic calcifications. Gastrointestinal: There are fluid-filled, mildly prominent small bowel loops which are visualized on this study. There is also mild prominence of the right colonic loops which are fluid-filled. The visualized sigmoid colonic loops and rectum are nondistended. Contrast noted within the sigmoid colonic loops and the rectum from previous study. Scattered changes of colonic diverticulosis without evidence of diverticulitis. No bowel wall pneumatosis. There is small amount of free fluid noted. There are small specks of air noted (images 28 and 32, series 2) which appear to be in the region of the free fluid. Vascular: Mild atherosclerotic changes within the iliac arteries. Lymph Nodes: No significant lymphadenopathy in the areas scanned. Abdominal Wall: Umbilical hernia containing fat. Suggestion of small bilateral inguinal hernias containing fat. Bones: No acute osseous finding. Prior fixation of the left hip with artifacts related to the hardware. Mild generalized decrease in bone mineralization. Degenerative changes in the right hip and bilateral sacroiliac joints. Mild lumbar spondylosis. IMPRESSION: 1. Ruiz catheter appears to be within the urinary bladder and has been appropriately repositioned on comparison to prior study. 2. Urinary bladder wall thickening with multiple small trabeculations/small diverticula. 3. Air within the bladder is due to the catheterization. Small specks of air along the bladder wall may be due to emphysematous cystitis as thought previously or may be air within the small trabeculations. 4. Cystogram images show a possible leak at the base of the bladder which extends posteriorly into the enlarged prostate. 5. Inadequate emptying of the urinary bladder on the post void images. 6. Small amount of free fluid in the abdomen and pelvis which was also noted previously though appears slightly more than on prior study. 7. Small specks of air within the free fluid may be free intraperitoneal air related to the same etiology as the free fluid. However the small bowel loops are not adequately opacified and some of this air thought to be free air may be air within the small bowel loops. Recommend clinical correlation and consider follow-up CT imaging of the abdomen and pelvis as necessary. 8. Mildly prominent fluid-filled small bowel loops and fluid-filled right colonic loops that are partly visualized, is a nonspecific appearance. This may be due to ileus or enteritis. 9. Enlarged prostate with prostatic calcifications. High attenuation foci along the posterior surface of the prostate were also seen on prior study and may also be due to the calcifications. Appropriate radiation dose reduction devices and/or manual techniques for appropriate moderation of exposure was utilized. Finalized by: Jeanine Cruz MD on 07/13/2017 10:56 AM Patient/Procedure Information: [facility] MRN/CUATE: [id number] Order Number: [id number] Accession Number: [id number] Ordering Provider: ERIK LUCIA Authorizing Provider: ERIK LUCIA LAB ONLY-COMPLETE BLOOD COUNT WITH DIFFERENTIAL (07/11/2017 5:30 AM) Component Value Ref Range WBC 20.4 (H) 4.0 - 11.0 K/uL RBC 4.49 4.40 - 5.80 M/uL Hemoglobin 12.9 (L) 13.5 - 17.5 g/dL Hematocrit 39.7 (L) 40.0 - 50.0 % MCV 88.5 80.0 - 98.0 fL MCH 28.8 25.5 - 34.0 pg MCHC 32.5 31.5 - 36.5 g/dL RDW-CV 13.7 11.5 - 15.5 % Platelet Count 132 (L) 140 - 400 K/uL MPV 6.7 (L) 8.5 - 12.0 fL Seg Neut Absolute 18.7 (H) 1.8 - 8.0 K/uL Lymphocytes Absolute 1.1 0.8 - 4.1 K/uL Monocytes Absolute 0.5 0.0 - 1.0 K/uL Eosinophils Absolute 0.0 0.0 - 0.7 K/uL Basophil Absolute 0.0 0.0 - 0.2 K/uL Neutrophils Abs. (Segs and Bands) 17368 /uL Neutrophils Percent 92.0 % Lymphocytes Percent 5.4 % Monocytes Percent 2.3 % Eosinophils Percent 0.2 % Basophil Percent 0.1 % Specimen Performing Laboratory Blood [facility] [address] [place] [id number] COMPLETE BLOOD COUNT WITH DIFFERENTIAL (07/11/2017 5:30 AM) Specimen Performing Laboratory Blood Narrative The following orders were created for panel order COMPLETE BLOOD COUNT WITH DIFFERENTIAL. Procedure Abnormality Status --------- ------ LAB ONLY-COMPLETE BLOOD ...[[id number]]AbnormalFinal result Please view results for these tests on the individual orders. BASIC METABOLIC PANEL (07/11/2017 5:30 AM) Component Value Ref Range Glucose 78 70 - 100 mg/dL BUN 36 (H) 5 - 20 mg/dL Creatinine 1.46 (H) 0.50 - 1.30 mg/dL BUN/Creatinine Ratio 24.7 10.0 - 25.0 Sodium 137 135 - 145 meq/L Potassium 4.6 3.5 - 5.1 meq/L Chloride 101 99 - 109 meq/L CO2 22 22 - 34 meq/L Anion Gap with K 19 (H) 6 - 18 meq/L Calcium 8.6 8.4 - 10.2 mg/dL Age 86 Years eGFR Non- 46 mL/min/1.73m2 eGFR 55 mL/min/1.73m2 Comment: The estimated Glomerular Filtration Rate (eGFR) is calculated using the Abbreviated Modification of Diet in Renal Disease (MDRD) equation.The eGFR is reported out in mL/min. per 1.73 meter squared units. The National Kidney Foundation action value for patients without a diagnosis of chronic kidney disease is a eGFR of < 60 mL/min per 1.73M2. The National Kidney Foundation stages listed below apply to patients with a diagnosis of chronic kidney disease (defined as either kidney damage or eGFR &lt ;60 mL/min/1.73 m2 for 3 months).Kidney da mage is defined as pathologic abnormalities or markers of damage, including abnormalities in blood or urine tests or imaging studies.These stages apply to adults.No standardized classification has yet been established for pediatric patients. Stage eGFR in ml/min per 1.73M2 1 Kidney abnormality with normal or increased eGFR >or=90 2 Kidney abnormality with mild decreased eGFR 60-89 3 Moderately decreasedeGFR 30-59 4 Severely decreased eGFR 15-29 5 Kidney failure <15 The eGFR varies with age, sex, race and body size and normally decreases with age. Specimen Performing Laboratory Blood [facility] [address] [place] [address] COLLECT AND HOLD LAVENDER (EDTA) TOP TUBE (07/11/2017 5:30 AM) Component Value Ref Range Collect and Hold Specimen Status Comment: RECEIVED Specimen Performing Laboratory Blood [facility] [address] [place] [address] COLLECT AND HOLD PANEL (07/11/2017 5:30 AM) Specimen Performing Laboratory Urine and Blood - Not Applicable Narrative The following orders were created for panel order COLLECT AND HOLD PANEL. Procedure Abnormality Status --------- ------ COLLECT AND HOLD LAVENDE...[[id number]]Final result Please view results for these tests on the individual orders. CREATININE (07/11/2017 5:30 AM) Component Value Ref Range Creatinine 1.37 (H) 0.50 - 1.30 mg/dL Age 86 Years eGFR Non- 49 mL/min/1.73m2 eGFR 60 mL/min/1.73m2 Comment: The estimated Glomerular Filtration Rate (eGFR) is calculated using the Abbreviated Modification of Diet in Renal Disease (MDRD) equation.The eGFR is reported out in mL/min. per 1.73 meter squared units. The National Kidney Foundation action value for patients without a diagnosis of chronic kidney disease is a eGFR of < 60 mL/min per 1.73M2. The National Kidney Foundation stages listed below apply to patients with a diagnosis of chronic kidney disease (defined as either kidney damage or eGFR &lt ;60 mL/min/1.73 m2 for 3 months).Kidney da mage is defined as pathologic abnormalities or markers of damage, including abnormalities in blood or urine tests or imaging studies.These stages apply to adults.No standardized classification has yet been established for pediatric patients. Stage eGFR in ml/min per 1.73M2 1 Kidney abnormality with normal or increased eGFR >or=90 2 Kidney abnormality with mild decreased eGFR 60-89 3 Moderately decreasedeGFR 30-59 4 Severely decreased eGFR 15-29 5 Kidney failure <15 The eGFR varies with age, sex, race and body size and normally decreases with age. Specimen Performing Laboratory Blood [facility] [address] [place] [address] COMPLETE BLOOD COUNT WITHOUT DIFFERENTIAL (07/10/2017 11:58 AM) Component Value Ref Range WBC 17.3 (H) 4.0 - 11.0 K/uL RBC 4.14 (L) 4.40 - 5.80 M/uL Hemoglobin 12.0 (L) 13.5 - 17.5 g/dL Hematocrit 36.6 (L) 40.0 - 50.0 % MCV 88.4 80.0 - 98.0 fL MCH 28.9 25.5 - 34.0 pg MCHC 32.8 31.5 - 36.5 g/dL RDW-CV 13.4 11.5 - 15.5 % Platelet Count 114 (L) 140 - 400 K/uL MPV 7.6 (L) 8.5 - 12.0 fL Specimen Performing Laboratory Blood [facility] [address] [place] [address] BASIC METABOLIC PANEL (07/10/2017 11:58 AM) Component Value Ref Range Glucose 79 70 - 100 mg/dL BUN 31 (H) 5 - 20 mg/dL Creatinine 1.34 (H) 0.50 - 1.30 mg/dL BUN/Creatinine Ratio 23.1 10.0 - 25.0 Sodium 138 135 - 145 meq/L Potassium 4.5 3.5 - 5.1 meq/L Chloride 103 99 - 109 meq/L CO2 23 22 - 34 meq/L Anion Gap with K 17 6 - 18 meq/L Calcium 8.0 (L) 8.4 - 10.2 mg/dL Age 86 Years eGFR Non- 50 mL/min/1.73m2 eGFR 61 mL/min/1.73m2 Comment: The estimated Glomerular Filtration Rate (eGFR) is calculated using the Abbreviated Modification of Diet in Renal Disease (MDRD) equation.The eGFR is reported out in mL/min. per 1.73 meter squared units. The National Kidney Foundation action value for patients without a diagnosis of chronic kidney disease is a eGFR of < 60 mL/min per 1.73M2. The National Kidney Foundation stages listed below apply to patients with a diagnosis of chronic kidney disease (defined as either kidney damage or eGFR &lt ;60 mL/min/1.73 m2 for 3 months).Kidney da mage is defined as pathologic abnormalities or markers of damage, including abnormalities in blood or urine tests or imaging studies.These stages apply to adults.No standardized classification has yet been established for pediatric patients. Stage eGFR in ml/min per 1.73M2 1 Kidney abnormality with normal or increased eGFR >or=90 2 Kidney abnormality with mild decreased eGFR 60-89 3 Moderately decreasedeGFR 30-59 4 Severely decreased eGFR 15-29 5 Kidney failure <15 The eGFR varies with age, sex, race and body size and normally decreases with age. Fasting Unknown Yes, No, Unknown Specimen Performing Laboratory Blood [facility] [address] [place] [address] XRAY ABDOMEN 1 VIEW (07/10/2017 11:06 AM) Specimen Performing Laboratory LAB Narrative FINAL REPORT Ordering Location: [facility] Patient Name: ROD JORGENSEN CSN: [id number] : 1930 Ordering Physician: SERENA MTZ CUATE: [id number] Order: [id number] Procedure: XRAY ABDOMEN 1 VIEW Procedure Date/Time: 07/10/2017 10:0 EXAM: XR Abdomen, 1 View EXAM DATE/TIME: 07/10/2017 11:06 AM CLINICAL HISTORY: The patient is a 86 yearsmale; Pain; Abdominal pain; Generalized; Additional info: Ileus TECHNIQUE: Frontal supine view of the abdomen/pelvis. COMPARISON: No relevant prior studies available. FINDINGS: Gastrointestinal tract:There is gas in scattered loops of dilated small bowel and normal caliber colon. Organs:There are numerous calcifications in the pelvis which may represent a combination of phleboliths and prostatic calcifications.There is a focus of increased attenuation in the right upper quadrant projecting along the inferior margin of the liver measuring 7.8 x 6.7 cm. Bones/joints:There has been internal fixation of the left femur for a remote intertrochanteric fracture.There are mild degenerative changes of the hip joints.There are diffuse degenerative changes of the spine.No acute osseous abnormality is identified. Tubes, lines and devices:There is a Ruiz catheter in the bladder which is partially decompressed and contains contrast. IMPRESSION: 1.Abnormal bowel gas pattern which could represent an early/partial small bowel obstruction 2.A focus of increased attenuation in the right upper quadrant which may be extrinsic to the patient or related to prior contrast administration and could represent material within the hepatic flexure.Correlate with recent imaging procedures. Remainder of non-emergent findings as described above. This report was electronically signed by [facility] physician: Erin Up MD. on 07/10/2017 at 12:03, Central Standard Time. Procedure Note Interface, Radibanner - 07/10/2017 12:04 PM SPORTS WRITER FINAL REPORT Ordering Location: [facility] Patient Name: ROD JORGENSEN CSN: [id number] : 1930 Ordering Physician: SERENA MTZ CUATE: [id number] Order: [id number] Procedure: XRAY ABDOMEN 1 VIEW Procedure Date/Time: 07/10/2017 10:0 EXAM: XR Abdomen, 1 View EXAM DATE/TIME: 07/10/2017 11:06 AM CLINICAL HISTORY: The patient is a 86 years male; Pain; Abdominal pain; Generalized; Additional info: Ileus TECHNIQUE: Frontal supine view of the abdomen/pelvis. COMPARISON: No relevant prior studies available. FINDINGS: Gastrointestinal tract: There is gas in scattered loops of dilated small bowel and normal caliber colon. Organs: There are numerous calcifications in the pelvis which may represent a combination of phleboliths and prostatic calcifications. There is a focus of increased attenuation in the right upper quadrant projecting along the inferior margin of the liver measuring 7.8 x 6.7 cm. Bones/joints: There has been internal fixation of the left femur for a remote intertrochanteric fracture. There are mild degenerative changes of the hip joints. There are diffuse degenerative changes of the spine. No acute osseous abnormality is identified. Tubes, lines and devices: There is a Ruiz catheter in the bladder which is partially decompressed and contains contrast. IMPRESSION: 1. Abnormal bowel gas pattern which could represent an early/partial small bowel obstruction 2. A focus of increased attenuation in the right upper quadrant which may be extrinsic to the patient or related to prior contrast administration and could represent material within the hepatic flexure. Correlate with recent imaging procedures. Remainder of non-emergent findings as described above. This report was electronically signed by [facility] physician: Erin Up MD. on 07/10/2017 at 12:03, Central Standard Time. LAB ONLY-COMPLETE BLOOD COUNT WITH DIFFERENTIAL (07/10/2017 5:53 AM) Component Value Ref Range WBC 18.2 (H) 4.0 - 11.0 K/uL RBC 4.27 (L) 4.40 - 5.80 M/uL Hemoglobin 12.4 (L) 13.5 - 17.5 g/dL Hematocrit 37.6 (L) 40.0 - 50.0 % MCV 88.1 80.0 - 98.0 fL MCH 29.1 25.5 - 34.0 pg MCHC 33.1 31.5 - 36.5 g/dL RDW-CV 13.2 11.5 - 15.5 % Platelet Count 129 (L) 140 - 400 K/uL MPV 7.2 (L) 8.5 - 12.0 fL Seg Neut Absolute 17.0 (H) 1.8 - 8.0 K/uL Lymphocytes Absolute 0.8 0.8 - 4.1 K/uL Monocytes Absolute 0.4 0.0 - 1.0 K/uL Eosinophils Absolute 0.0 0.0 - 0.7 K/uL Basophil Absolute 0.0 0.0 - 0.2 K/uL Neutrophils Abs. (Segs and Bands) 10274 /uL Neutrophils Percent 93.5 % Lymphocytes Percent 4.3 % Monocytes Percent 2.1 % Eosinophils Percent 0.0 % Basophil Percent 0.1 % Specimen Performing Laboratory Blood [facility] [address] [place] [address] CREATININE (07/10/2017 5:53 AM) Component Value Ref Range Creatinine 1.45 (H) 0.50 - 1.30 mg/dL Age 86 Years eGFR Non- 46 mL/min/1.73m2 eGFR 56 mL/min/1.73m2 Comment: The estimated Glomerular Filtration Rate (eGFR) is calculated using the Abbreviated Modification of Diet in Renal Disease (MDRD) equation.The eGFR is reported out in mL/min. per 1.73 meter squared units. The National Kidney Foundation action value for patients without a diagnosis of chronic kidney disease is a eGFR of < 60 mL/min per 1.73M2. The National Kidney Foundation stages listed below apply to patients with a diagnosis of chronic kidney disease (defined as either kidney damage or eGFR &lt ;60 mL/min/1.73 m2 for 3 months).Kidney da mage is defined as pathologic abnormalities or markers of damage, including abnormalities in blood or urine tests or imaging studies.These stages apply to adults.No standardized classification has yet been established for pediatric patients. Stage eGFR in ml/min per 1.73M2 1 Kidney abnormality with normal or increased eGFR >or=90 2 Kidney abnormality with mild decreased eGFR 60-89 3 Moderately decreasedeGFR 30-59 4 Severely decreased eGFR 15-29 5 Kidney failure <15 The eGFR varies with age, sex, race and body size and normally decreases with age. Specimen Performing Laboratory Blood [facility] [address] [place] [address] COMPLETE BLOOD COUNT WITH DIFFERENTIAL (07/10/2017 5:53 AM) Specimen Performing Laboratory Blood Narrative The following orders were created for panel order COMPLETE BLOOD COUNT WITH DIFFERENTIAL. Procedure Abnormality Status --------- ------ LAB ONLY-COMPLETE BLOOD ...[[id number]]AbnormalFinal result Please view results for these tests on the individual orders. CULTURE BACTERIAL, URINE (07/09/2017 11:58 PM) Component Value Ref Range Culture Result Culture Result >100,000 CFU/mL Staphylococcus aureus, MRSA (!) Specimen Performing Laboratory Urine - Cath-Indwelling [facility] [address] [place] [address] Organism Antibiotic Method Susceptibility Staphylococcus aureus, MRSA Gentamicin JOVI <=0.5 ug/mL: Sensitive Staphylococcus aureus, MRSA Nitrofurantoin JOVI <=16 ug/mL: Sensitive Comment: Do not use for pyelonephritis. Staphylococcus aureus, MRSA Oxacillin JOVI >=4 ug/mL: Resistant Comment: Oxacillin predicts susceptibility to cefazolin, cephalexin, nafcillin and dicloxacillin. Staphylococcus aureus, MRSA Tetracycline JOVI <=1 ug/mL: Sensitive Staphylococcus aureus, MRSA Trimethoprim/Sulfamethoxazol JOVI <=10 ug/mL: Sensitive e Staphylococcus aureus, MRSA Vancomycin JOVI 1 ug/mL: Sensitive Comment: Oxacillin: Penicillin-resistant, oxacillin-susceptible strains are resistant to penicillinase-labile penicillins but susceptible to other penicillinase- stable penicillins,beta-lactam/beta-lactamase inhibitor combinations, relevant cephems, and carbapenems.Oxacillin- resistant staphylococci are resistant to all currently available beta-lactam antimicrobial agents. Tetracycline: Organisms that are susceptible to tetracycline are also considered susceptible to doxycycline and minocycline.However, some organisms that are intermediate or resistant to tetracycline may be susceptible to doxycycline or minocycline or both. Oral Vancomycin is NEVER a treatment option for MRSA. When given orally, Vancomycin is NOT absorbed. URINALYSIS, REFLEX TO CULTURE (07/09/2017 11:58 PM) Component Value Ref Range Color Urine Dark Yellow Clarity Urine Cloudy Glucose Urine Negative Negative Bilirubin Urine Negative Negative Ketones Urine 15 mg/dL (A) Negative Specific [place] 1.015 1.005 - 1.030 Blood Urine Large (A) Negative pH Urine 5.0 5.0, 5.5, 6.0, 6.5, 7.0, 7.5, 8.0 Protein Urine 100 mg/dL (A) Negative, Trace Urobilinogen 0.2 EU/dL 0.2 EU/dL, 1.0 EU/dL Nitrite Positive (A) Negative Leukocyte Esterase Urine Moderate (A) Negative WBC Urine 21-50 /hpf (A) Negative, 0-5 /hpf RBC Urine 51-200 /hpf (A) Negative, 0-2 /hpf Squamous Epithelial Negative Negative, Few Bacteria Moderate (A) Negative Specimen Performing Laboratory Urine - Cath-Indwelling [facility] [address] [place] [address] Narrative A urine culture will be performed when one or more of the following criteria is met: Nitrite-Positive Leukocyte Esterase-Positive WBC-Greater than 5 CULTURE, BLOOD (07/09/2017 7:47 PM) Component Value Ref Range Culture Result No growth at 5 days Specimen Performing Laboratory Blood [facility] [address] [place] [address] LACTIC ACID (07/09/2017 7:47 PM) Component Value Ref Range Lactic Acid 1.6 0.5 - 2.2 mmol/L Specimen Performing Laboratory Blood [facility] [address] [place] [address] COMPREHENSIVE METABOLIC PANEL (07/09/2017 7:47 PM) Component Value Ref Range Glucose 95 70 - 100 mg/dL BUN 32 (H) 5 - 20 mg/dL Creatinine 1.98 (H) 0.50 - 1.30 mg/dL BUN/Creatinine Ratio 16.2 10.0 - 25.0 Sodium 137 135 - 145 meq/L Potassium 4.6 3.5 - 5.1 meq/L Chloride 100 99 - 109 meq/L CO2 24 22 - 34 meq/L Anion Gap with K 18 6 - 18 meq/L Calcium 8.7 8.4 - 10.2 mg/dL Protein Total 6.7 6.3 - 8.2 g/dL Albumin 3.7 3.4 - 4.8 g/dL Alkaline Phosphatase 60 38 - 126 U/L AST - SGOT 27 0 - 37 U/L ALT - SGPT 14 0 - 55 U/L Bilirubin Total 1.2 0.2 - 1.3 mg/dL Corrected Calcium 8.9 8.4 - 10.2 mg/dL Age 86 Years eGFR Non- 32 mL/min/1.73m2 eGFR 39 mL/min/1.73m2 Comment: The estimated Glomerular Filtration Rate (eGFR) is calculated using the Abbreviated Modification of Diet in Renal Disease (MDRD) equation.The eGFR is reported out in mL/min. per 1.73 meter squared units. The National Kidney Foundation action value for patients without a diagnosis of chronic kidney disease is a eGFR of < 60 mL/min per 1.73M2. The National Kidney Foundation stages listed below apply to patients with a diagnosis of chronic kidney disease (defined as either kidney damage or eGFR &lt ;60 mL/min/1.73 m2 for 3 months).Kidney da mage is defined as pathologic abnormalities or markers of damage, including abnormalities in blood or urine tests or imaging studies.These stages apply to adults.No standardized classification has yet been established for pediatric patients. Stage eGFR in ml/min per 1.73M2 1 Kidney abnormality with normal or increased eGFR >or=90 2 Kidney abnormality with mild decreased eGFR 60-89 3 Moderately decreasedeGFR 30-59 4 Severely decreased eGFR 15-29 5 Kidney failure <15 The eGFR varies with age, sex, race and body size and normally decreases with age. 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 and other lower urinary tract symptoms (LUTS) in this encounter Administered Medications Medication Order MAR Action Action Date Dose Rate Site fentaNYL 100 mcg/2 mL preservative Bolus-New Bag 07/11/2017 00:03 SPORTS WRITER 25 mcg free injection solution 25 mcg 25 mcg, IV, When indicated every 6 hours prn, Starting Wed07/09/17 at 2030, Until Discontinued, pain, severe pain, 2 mL New Bag 07/11/2017 21:47 SPORTS WRITER 25 mcg New Bag 07/13/2017 23:44 SPORTS WRITER 25 mcg finasteride (PROSCAR) tablet 5 mg Given 07/13/2017 07:14 SPORTS WRITER 5 mg 5 mg, Oral, DAILY, First dose on Wed07/11/17 at 0900, Until Discontinued, This medication is a low risk cytotoxic drug. Wear 2 pairs of chemo gloves for administration. If unable to administer dose intact - contact pharmacy for other administration options. Dispose of empty packages in the yellow cytotoxic waste. Dispose of unused or partial packages in the black waste containers. Given 07/14/2017 09:12 SPORTS WRITER 5 mg Given 07/15/2017 09:06 SPORTS WRITER 5 mg furosemide (LASIX) tablet 20 mg Given 07/12/2017 08:11 SPORTS WRITER 20 mg 20 mg, Oral, One time a day Wed, First dose on Wed07/12/17 at 0900, Until Discontinued Given 07/14/2017 09:12 SPORTS WRITER 20 mg potassium chloride (KLOR-CON M20) CR tablet 20 Given 07/12/2017 08:11 SPORTS WRITER 20 mEq mEq 20 mEq, Oral, One time a day Wed, First dose on Wed07/12/17 at 0900, Until Discontinued, Tablet may be broken in half, but should not be crushed or chewed. Tablet may be dissolved in 4 oz of water. Given 07/14/2017 09:12 SPORTS WRITER 20 mEq sodium chloride 0.9% IV solution New Bag 07/13/2017 07:13 SPORTS WRITER 75 mL/hr IV, at 75 mL/hr, Continuous, Starting Wed07/09/17 at 2125, Until Discontinued, 1,000 mL New Bag 07/13/2017 22:40 SPORTS WRITER 75 mL/hr New Bag 07/14/2017 12:21 SPORTS WRITER 75 mL/hr vancomycin 1,500 mg in sodium chloride 0.9% 250 Given 07/13/2017 16:39 SPORTS WRITER 1, 500 mg mL 1,500 mg, IV, Every eighteen hours, First dose on Wed07/13/17 at 1700, Until Discontinued, 250 mL, Infuse using smart pump where available. Given 07/14/2017 12:19 SPORTS WRITER 1,500 mg Given 07/15/2017 05:05 SPORTS WRITER 1,500 mg Medication Order MAR Action Action Date Dose Rate Site fentaNYL 100 mcg/2 mL preservative Given 07/09/2017 20:07 SPORTS WRITER 25 mcg free injection solution 25 mcg 25 mcg, IV, Every two hours prn, Starting Wed07/09/17 at 1925, Until Wed07/09/17 at 202, pain, severe pain, 2 mL iohexol (OMNIPAQUE) 350 mg/mL solution 100 mL Given 07/12/2017 10:18 SPORTS WRITER 100 mL 100 mL, Injection, Now imaging, 1 dose, Starting Wed07/12/17 at 1013, Until Wed07/12/17 at 1018, 100 mL lidocaine 2% gel (Urojet)~ Given 07/09/2017 20:08 SPORTS WRITER Urethral, One time, 1 dose, Wed07/09/17 at 2100, 10 mL meropenem (MERREM) 500 mg in sodium chloride 0.9% Given 07/10/2017 08:30 SPORTS WRITER 500 mg 100 mL 500 mg, IV, Every twelve hours, First dose on Wed07/10/17 at 0900, Until Discontinued, 110 mL meropenem (MERREM) in 0.9% NS 50 mL IV (DUPLEX) Given 07/10/2017 20:32 SPORTS WRITER 1, 000 mg (extended infusion) 1,000 mg 1,000 mg, IV, Every twelve hours, First dose on Wed07/10/17 at 2100, Until Discontinued, 50 mL Given 07/11/2017 08:16 SPORTS WRITER 1,000 mg meropenem (MERREM) in 0.9% NS 50 mL IV (DUPLEX) Given 07/11/2017 20:00 SPORTS WRITER 1, 000 mg (extended infusion) 1,000 mg 1,000 mg, IV, Every twelve hours, First dose on Wed07/11/17 at 2100, Until Discontinued, 50 mL, Compatible with vancomycin Given 07/12/2017 08:11 SPORTS WRITER 1,000 mg meropenem (MERREM) in 0.9% NS 50 mL IV Given 07/09/2017 23:30 SPORTS WRITER 1,000 mg piggyback (DUPLEX) (premix) 1,000 mg 1,000 mg, IV, Every twelve hours, 1 dose, First dose on Wed07/09/17 at 2100, 50 mL, Administer first dose over 30 minutes. sodium chloride 0.9% (bolus) IV solution 1,000 Given 07/09/2017 21:34 SPORTS WRITER 1, 000 mL mL 1,000 mL, IV, Bolus, 1 dose, Wed07/09/17 at 2205, 1,000 mL vancomycin 1,250 mg in sodium chloride 0.9% 250 Given 07/09/2017 21:34 SPORTS WRITER 1, 250 mg mL 1,250 mg, IV, Every thirty six hours, First dose on Wed07/09/17 at 2100, Until Discontinued, 250 mL, Compatible with meropenem vancomycin 1,250 mg in sodium chloride 0.9% 250 Given 07/10/2017 23:45 SPORTS WRITER 1, 250 mg mL 1,250 mg, IV, Every twenty four hours, First dose on Wed07/10/17 at 2130, Until Discontinued, 250 mL, Compatible with meropenem vancomycin 1,250 mg in sodium chloride 0.9% 250 Given 07/11/2017 23:08 SPORTS WRITER 1, 250 mg mL 1,250 mg, IV, Every twenty four hours, First dose on Wed07/11/17 at 2330, Until Discontinued, 250 mL, Compatible with meropenem Given 07/12/2017 23:11 SPORTS WRITER 1,250 mg in this encounter
[2017-07-22] MEDS: SOD CHLORIDE IV SCH ×3 (19:14→19:58)
[2017-07-22] MEDS: VANCOMYCIN IV SCH ×3 (19:14→19:58)
[2017-07-22] MEDS: [UNRECOGNIZED DRUG - OTHER] IV SCH ×3 (19:14→19:58)
[2017-07-23] MEDS: Furosemide 20 MG Tab PO SCH (08:19)
[2017-07-23] MEDS: Potassium Chloride 20 MEQ Tab.ER PO SCH (08:19)
[2017-07-23] MEDS: Finasteride 5 MG Tab PO SCH (08:25)
[2017-07-23] MEDS: Potassium Bicarbonate/Potassium Chloride 25 MEQ Tab.Eff PO SCH ×3 (08:25→12:10)
--- NOTE | 2017-07-23 10:58 | PN ---
07/22/2017PATIENT NAME: ROD JORGENSEN PATIENT PROFILE: This is an 86-year-old gentleman with a history of urinary retention, indwelling Graham catheter. He has been having this the past couple of years. He has been refusing a suprapubic catheter. He is in a swing bed status, receiving physical therapy along with vancomycin. He was initially seen in [place] with a diagnosis of a complicated cystitis with acute urinary retention bleed into the urethra and an ileus. Initially, we thought he was pulling on the catheter, however, in speaking with family members, the patient accidentally likely sat on it and created a taut catheter, so this was not necessarily pulled by the patient. Seen in [facility] [place], found to have urinary tract infection with ongoing indwelling urinary catheter with urinary retention, large prostate, complicated UTI. He was bleeding throughout his urethra with acute renal injury with elevated creatinine level. He was treated at [facility] with IV vancomycin. Urologic consults from Dr. Selby were obtained. He had a Graham bladder irrigation, and he was diagnosed to have a cystitis. He was discharged back to our facility here for ongoing physical therapy and IV medications. PHYSICAL EXAMINATION: The patient is alert and oriented, pleasant. He weighs 178 pounds. He is a full code. Temperature 97.5, respiratory rate 18, O2 sats on room air 94%, blood pressure 129/70. The patient is alert and oriented. Lungs are clear to auscultation. CV: Regular rate and rhythm. : Indwelling Graham catheter, clear urine, draining well. Lower extremity does have pitting edema, left worse than right, however, improved since yesterday. LABS: The patient does have low potassium 3.1, that will be corrected today. Sodium 139, BUN 12, creatinine likely at baseline of 1.29, glucose 83, calcium 8.0. AST, ALT, and alkaline phosphatase normal. The patient does have an elevated vancomycin trough, peaked at 31.5, therapeutic threshold is up to 20. He had been receiving IV fluids to help with this. It has come down to 23.5. Albumin low at 1.97. Total protein slightly low 6.0. IMPRESSION/PLAN: 1. Weakness, receiving physical therapy. The patient is does have some compliance issues with PT, takes quite a bit encouragement for him to do the necessity of physical therapy. Continue to encourage the patient. 2. Recent acute urinary tract infection. No longer on vancomycin. This is improved clinically. 3. BPH with urinary retention. Chronic indwelling Graham catheter. 4. Recent acute renal injury, improving. 5. Elevated vancomycin trough, improved with fluids. 6. Recent ileus, resolved. 7. Dementia, stable, mild. 8. Phimosis. 9. Remote diagnosis of congestive heart failure with myocardial infarction. He is on 20 mg of Lasix Wednesday, Wednesday, and Wednesday. We will give him additional dose today. LISA rubin. 10. Hypokalemia, correct gently /[id number]/MODL MTDD
[2017-07-24] MEDS: Finasteride 5 MG Tab PO SCH (08:55)
[2017-07-24] MEDS: Potassium Bicarbonate/Potassium Chloride 25 MEQ Tab.Eff PO SCH (11:58)
[2017-07-25] MEDS: Finasteride 5 MG Tab PO SCH (08:12)
[2017-07-25] MEDS: Potassium Bicarbonate/Potassium Chloride 25 MEQ Tab.Eff PO SCH (11:53)
[2017-07-26] MEDS: Furosemide 20 MG Tab PO SCH (08:20)
[2017-07-26] MEDS: Finasteride 5 MG Tab PO SCH (08:20)
[2017-07-26] MEDS: Potassium Chloride 20 MEQ Tab.ER PO SCH (08:20)
[2017-07-26] MEDS: Potassium Bicarbonate/Potassium Chloride 25 MEQ Tab.Eff PO SCH (12:09)
[2017-07-27] MEDS: Finasteride 5 MG Tab PO SCH (08:59)
[2017-07-27] MEDS: Potassium Chloride 20 MEQ Tab.ER PO SCH (11:30)
[2017-07-28] MEDS: Furosemide 20 MG Tab PO SCH (08:38)
[2017-07-28] MEDS: Finasteride 5 MG Tab PO SCH (08:38)
[2017-07-28] MEDS: Potassium Chloride 20 MEQ Tab.ER PO SCH (08:39)
--- NOTE | 2017-07-28 11:21 | PN ---
07/28/2017 PATIENT NAME: ROD JORGENSEN CHIEF COMPLAINT: None, overall feels good, likely will go home within 24-48 hours. The patient has been in physical therapy. HISTORY OF PRESENT ILLNESS: He is an 86-year-old gentleman with a history of urinary retention, indwelling Graham catheter. He had been transferred to us from [place], significant urinary tract infection complicated. He had been on vancomycin. He was initially seen in [place], diagnosed with complicated cystitis with acute urinary retention, bleed into the urethra along with an ileus. He was not pulling on his catheter. He was bleeding through his urethra though because he did get it caught. Urological consultation with Dr. Selby was obtained. He had a Graham bladder irrigation along with diagnosis of cystitis. He has been here and doing quite well. He has had some complicated electrolyte imbalances such as hypokalemia, those are not corrected. PHYSICAL EXAMINATION: The patient is a full code. VITAL SIGNS: He is 5 feet 8 inches, he weighs 178 pounds, BMI 27, blood pressure 128/78, temperature 98.3, heart rate 84, O2 sats on room air are 93%, respiratory rate 20. GENERAL: The patient is alert and oriented. LUNGS: His lungs are clear to auscultation. CV: Regular rate and rhythm, however, 2/6 systolic murmur. GI: Slightly distended, however, likely normal body habitus. Good bowel tones. EXTREMITIES: Lower extremities mild edema, much improved. LABORATORY DATA: Recent labs; potassium now corrected to 4.6, sodium 139, BUN 15, creatinine 1.30. He has had a vancomycin trough that was elevated. He did get some IV hydration and that has come down. He is no longer on vancomycin. He has completed his course. IMPRESSION/PLAN: Weakness. He has been receiving physical therapy. Notes have been reviewed. He has been doing well. At times, he has been hesitant to perform physical therapy, however, with some slight encouragement, he has complied. He is demonstrating good standing balance with ability to reach and weight shift outside of base support without loss of balance. He has seemed to improve with his in independence of ADLs along with his transfers. Physical therapy feels the patient will be able to complete ADLs with greater ease in a more familiar home environment. He has continued to progress standing balance along with lower extremity strength and activity tolerance. Most likely, he could be discharged within 48 hours. /[id number]/MODL
[2017-07-29] MEDS: Finasteride 5 MG Tab PO SCH (08:33)
[2017-07-29] MEDS: Potassium Chloride 20 MEQ Tab.ER PO SCH (08:33)
== END 2017-07-29 13:00 | disposition home or self-care (01) | DRG 690 ==
LOC: KA.MS 14:50
PROVIDERS: ADMIT Nurse Practitioner Family; ATTEND Family Medicine
DX: N30.81 Other cystitis with hematuria (principal); N40.1 Benign prostatic hyperplasia with lower urinary tract symptoms; R33.8 Other retention of urine; R53.1 Weakness; F03.90 Unspecified dementia, unspecified severity, without behavioral disturbance, psychotic disturbance, mood disturbance, and anxiety; N47.1 Phimosis; I50.9 Heart failure, unspecified; I25.2 Old myocardial infarction
CPT/HCPCS: 36415; 80048; 80053; 80202; 82565; 84132; 84520; 97110-GP; 97150-GP; 97162-GP; A9270-GY; J3370; J7030; J7050

== ENCOUNTER 2018-08-21 19:40 | Emergency (ER) | payer MEDICARE, OTHER ==
--- NOTE | 2018-08-21 20:08 | EDM.PDOC ---
ED HPI GENERAL MEDICAL PROBLEM - General Chief Complaint: Respiratory Problem Stated Complaint: RESP. DISTRESS Time Seen by Provider: 08/21/18 19:55 Source of Information: Reports: Patient, EMS, EMS Notes Reviewed, Family ( Daughter) History Limitations: Reports: No Limitations - History of Present Illness INITIAL COMMENTS - FREE TEXT/NARRATIVE: Patient is an 87-year-old gentleman who presents to the emergency Department this evening via EMS secondary to shortness of breath. Per history from daughter, she states that she was at his residence until 1300 today at which time he was acting fine, in no discomfort, and breathing okay. At approximately 1900, Patient's contacted daughter and said that patient was dizzy and having a hard time breathing. 911 was contacted and EMS brought patient to facility. Upon presentation, patient had oxygen saturation in the 80s and was placed on a nonrebreather mask. Oxygen saturation did increase to 93%, however, patient remained tachycardic at 105-110, and tachypnea at 24. Patient does have baseline dementia, however he denies any chest pain. Onset: Today, Sudden Onset Date: 08/21/18 Onset Time: 19:00 Duration: Minutes: Quality: Reports: Other (Denies any chest pain) Improves with: Reports: None Worsens with: Reports: None Associated Symptoms: Reports: No Other Symptoms, Shortness of Breath - Related Data Allergies Allergy/AdvReac Type Severity Reaction Status Date / Time No Known Allergies Allergy Verified 08/21/18 19:59 Home Meds: Home Meds Furosemide [Lasix] 20 mg PO MOWEFR@0900 #90 tablet 07/28/17 [Rx] Potassium Chloride [Klor-Con M20] 20 meq PO DAILY #60 tab.er 07/28/17 [Rx] Past Medical History HEENT History: Reports: Hard of Hearing, Impaired Vision Cardiovascular History: Reports: Heart Failure, DC Gastrointestinal History: Reports: Hemorrhoids, Other (See Below) Other Gastrointestinal History: ileus in 2018 Genitourinary History: Reports: BPH, Retention, Urinary, Other (See Below) Other Genitourinary History: Has ruiz replaced monthly Psychiatric History: Reports: Dementia Oncologic (Cancer) History: Reports: Malignant Melanoma Dermatologic History: Reports: Melanoma - Infectious Disease History Infectious Disease History: Reports: MRSA - Past Surgical History GI Surgical History: Reports: Appendectomy, Colonoscopy, Hernia Repair/Other Social & Family History - Caffeine Use Caffeine Use: Reports: Coffee ED ROS GENERAL - Review of Systems Review Of Systems: ROS reveals no pertinent complaints other than HPI. Constitutional: Reports: No Symptoms HEENT: Reports: No Symptoms Respiratory: Reports: Shortness of Breath Cardiovascular: Reports: No Symptoms Endocrine: Reports: No Symptoms GI/Abdominal: Reports: No Symptoms : Reports: No Symptoms Musculoskeletal: Reports: No Symptoms Skin: Reports: No Symptoms Neurological: Reports: Dizziness Psychiatric: Reports: No Symptoms Hematologic/Lymphatic: Reports: No Symptoms Immunologic: Reports: No Symptoms ED EXAM, GENERAL - Physical Exam Exam: See Below Exam Limited By: Altered Mental Status (Baseline dementia) General Appearance: Lethargic Eye Exam: Bilateral Eye: Normal Inspection Nose: Normal Inspection, Normal Mucosa, No Blood Throat/Mouth: Normal Inspection, Normal Oropharynx, No Airway Compromise Head: Atraumatic, Normocephalic Neck: Normal Inspection Respiratory/Chest: Respiratory Distress, Decreased Breath Sounds (Bibasilar), Rales (Bibasilar), Accessory Muscle Use Cardiovascular: Tachycardia, Systolic Murmur (3/6 at mitral). No: Regular Rate , Rhythm, No Murmur GI/Abdominal: Normal Bowel Sounds, Soft, Non-Tender Extremities: Pedal Edema (2+) Neurological: Slow to Respond Psychiatric: Flat Affect Skin Exam: Warm, Dry, Intact, Normal Color, No Rash EKG INTERPRETATION EKG Date: 08/21/18 Time: 19:50 Rhythm: Other (Sinus tachycardia) [place]: Normal P-Wave: Present QRS: Normal ST-T: Normal QT: Normal Comparison: NA - No Prior EKG Course - Vital Signs Last Recorded V/S: Last Vital Signs Temp 98.0 F 08/21/18 19:45 Pulse 109 H 08/21/18 20:30 Resp 34 H 08/21/18 20:30 BP 174/79 H 08/21/18 20:30 Pulse Ox 93 L 08/21/18 20:30 - Orders/Labs/Meds Orders: Active Orders 24 hr Category Date Time Status EKG Documentation Completion [RC] ASDIRECTED Care 08/21/18 19:56 Ordered Chest 1V Frontal [CR] Stat Exams 08/21/18 19:55 Ordered CULTURE BLOOD [BC] Stat Lab 08/21/18 20:30 Ordered CULTURE BLOOD [BC] Stat Lab 08/21/18 20:30 Ordered LACTIC ACID [CHEM] Stat Lab 08/21/18 21:20 Ordered Azithromycin [Zithromax] 500 mg Med 08/21/18 20:49 Ordered Sodium Chloride 0.9% [Normal Saline] 250 ml IV ONETIME Blood Culture x2 Reflex Set [OM.PC] Stat Oth 08/21/18 20:30 Ordered Medication Orders Azithromycin 500 mg/ Sodium (Chloride) 250 mls @ 250 mls/hr IV ONETIME ONE Stop: 08/21/18 21:48 Labs: Laboratory Tests 08/21/18 08/21/18 08/21/18 Range/Units 19:50 19:50 19:50 WBC 20.66 H (5.00-10.00) 10^3/uL RBC 4.27 L (4.50-6.00) 10^6/uL Hgb 12.6 L (13.0-17.0) g/dL Hct 37.7 L (40.0-52.0) % MCV 88.3 (82.0-92.0) fL MCH 29.5 (27.0-31.0) pg MCHC 33.4 (32.0-36.0) g/dL RDW 13.1 (11.5-14.5) % Plt Count 292 (150-400) 10^3/uL MPV 9.6 (7.4-10.4) fL Immature Gran % (Auto) 0.2 (0.0-5.0) % Neut % (Auto) 70.9 H (50.0-70.0) % Lymph % (Auto) 21.6 (20.0-40.0) % [place] % (Auto) 5.0 (2.0-8.0) % Eos % (Auto) 2.0 (1.0-3.0) % Baso % (Auto) 0.3 (0.0-1.0) % Immature Gran # (Auto) 0.05 (0.00-0.50) 10^3/uL Neut # (Auto) 14.63 H (2.50-7.00) 10^3/uL Lymph # (Auto) 4.47 H (1.00-4.00) 10^3/uL [place] # (Auto) 1.03 H (0.10-0.80) 10^3/uL Eos # (Auto) 0.42 H (0.10-0.30) 10^3/uL Baso # (Auto) 0.06 (0.00-0.10) 10^3/uL PT 10.9 (8.9-11.4) SEC INR 1.1 (0.9-1.1) APTT 24.4 (23.1-31.3) SEC Sodium 141 (136-145) mmol/L Potassium 3.7 (3.3-5.3) mmol/L Chloride 102 (98-115) mmol/L Carbon Dioxide 27.2 (21.0-32.0) mmol/L Anion Gap 15.5 H (5-15) mmol/L BUN 21 (6-25) mg/dL Creatinine 0.80 (0.51-1.17) mg/dL Est Cr Clr Drug Dosing 57.60 mL/min Estimated GFR (MDRD) > 60 mL/min Glucose 147 H (75 - 99) mg/dL Calcium 8.7 (8.7-10.3) mg/dL Magnesium 1.7 L (1.8-2.4) mg/dL Total Bilirubin 0.4 (0.2-1.0) mg/dL AST 25 (15-37) U/L ALT 15 (12-78) U/L Alkaline Phosphatase 73 (46-116) IU/L Troponin I 0.05 (0.00-0.070) ng/mL B-Natriuretic Peptide 755 H (0-100) pg/mL Total Protein 8.4 H (6.4-8.2) g/dL Albumin 2.95 L (3.00-4.80) g/dL Specimen Type Urine Color (YELLOW) Urine Appearance (CLEAR) Urine pH (5.0-9.0) Ur Specific [place] (1.005-1.030) Urine Protein (NEGATIVE) mg/dL Urine Glucose (UA) (NEGATIVE) mg/dL Urine Ketones (NEGATIVE) mg/dL Urine Occult Blood (NEGATIVE) Urine Nitrite (NEGATIVE) Urine Bilirubin (NEGATIVE) Urine Urobilinogen (0.2-1.0) E.U./dL Ur Leukocyte Esterase (NEGATIVE) Urine RBC (0-5) /HPF Urine WBC (0-5) /HPF Ur Epithelial Cells /LPF Amorphous Sediment (0/HPF) /HPF Urine Bacteria (NONE TO FEW) /HPF 08/21/18 Range/Units 20:10 WBC (5.00-10.00) 10^3/uL RBC (4.50-6.00) 10^6/uL Hgb (13.0-17.0) g/dL Hct (40.0-52.0) % MCV (82.0-92.0) fL MCH (27.0-31.0) pg MCHC (32.0-36.0) g/dL RDW (11.5-14.5) % Plt Count (150-400) 10^3/uL MPV (7.4-10.4) fL Immature Gran % (Auto) (0.0-5.0) % Neut % (Auto) (50.0-70.0) % Lymph % (Auto) (20.0-40.0) % [place] % (Auto) (2.0-8.0) % Eos % (Auto) (1.0-3.0) % Baso % (Auto) (0.0-1.0) % Immature Gran # (Auto) (0.00-0.50) 10^3/uL Neut # (Auto) (2.50-7.00) 10^3/uL Lymph # (Auto) (1.00-4.00) 10^3/uL [place] # (Auto) (0.10-0.80) 10^3/uL Eos # (Auto) (0.10-0.30) 10^3/uL Baso # (Auto) (0.00-0.10) 10^3/uL PT (8.9-11.4) SEC INR (0.9-1.1) APTT (23.1-31.3) SEC Sodium (136-145) mmol/L Potassium (3.3-5.3) mmol/L Chloride (98-115) mmol/L Carbon Dioxide (21.0-32.0) mmol/L Anion Gap (5-15) mmol/L BUN (6-25) mg/dL Creatinine (0.51-1.17) mg/dL Est Cr Clr Drug Dosing mL/min Estimated GFR (MDRD) mL/min Glucose (75 - 99) mg/dL Calcium (8.7-10.3) mg/dL Magnesium (1.8-2.4) mg/dL Total Bilirubin (0.2-1.0) mg/dL AST (15-37) U/L ALT (12-78) U/L Alkaline Phosphatase (46-116) IU/L Troponin I (0.00-0.070) ng/mL B-Natriuretic Peptide (0-100) pg/mL Total Protein (6.4-8.2) g/dL Albumin (3.00-4.80) g/dL Specimen Type Urinfol Urine Color Light yellow (YELLOW) Urine Appearance Slightly cloudy H (CLEAR) Urine pH 5.0 (5.0-9.0) Ur Specific [place] >= 1.030 (1.005-1.030) Urine Protein 100 H (NEGATIVE) mg/dL Urine Glucose (UA) Negative (NEGATIVE) mg/dL Urine Ketones Negative (NEGATIVE) mg/dL Urine Occult Blood Large H (NEGATIVE) Urine Nitrite Negative (NEGATIVE) Urine Bilirubin Negative (NEGATIVE) Urine Urobilinogen 0.2 (0.2-1.0) E.U./dL Ur Leukocyte Esterase Small H (NEGATIVE) Urine RBC 30-40 H (0-5) /HPF Urine WBC Packed (0-5) /HPF Ur Epithelial Cells Moderate H /LPF Amorphous Sediment Many H (0/HPF) /HPF Urine Bacteria Many H (NONE TO FEW) /HPF Meds: Medications Generic Name Dose Route Start Last Admin Trade Name Freq PRN Reason Stop Dose Admin Azithromycin 500 mg/ Sodium 250 mls @ 250 mls/hr 08/21/18 20:49 Chloride IV 08/21/18 21:48 ONETIME ONE Discontinued Medications Generic Name Dose Route Start Last Admin Trade Name Freq PRN Reason Stop Dose Admin Ceftriaxone Sodium 1 gm 08/21/18 20:49 08/21/18 21:05 Rocephin IVPUSH 08/21/18 20:50 1 gm ONETIME ONE Administration Furosemide 40 mg 08/21/18 20:26 08/21/18 20:30 Lasix IVPUSH 08/21/18 20:27 40 mg NOW ONE Administration Furosemide Confirm 08/21/18 20:27 08/21/18 20:35 Lasix Administered 08/21/18 20:28 Not Given Dose 40 mg .ROUTE .STK-MED ONE Sodium Chloride Confirm 08/21/18 21:15 Normal Saline Administered 08/21/18 21:16 Dose 150 mls @ as directed .ROUTE .STK-MED ONE - Radiology Interpretation Free Text/Narrative:: Chest x-ray shows bilateral hilar congestion with bilateral lower lobe suspected pneumonia. - Re-Assessments/Exams Free Text/Narrative Re-Assessment/Exam: 08/21/18 21:27 The patient was given 40 mg of Lasix and urinary output was increased by 500 mL , however patient remains tachypneic and tachycardic. Discussed case with Dr. Cristo lema and decision was made to consider transfer. Discussed case with Dr. Patterson, hospitalist at [facility] in [place], and he will accept transfer of care. Patient will be transferred via EMS ground ambulance Departure - Departure Time of Disposition: 21:36 Disposition: DC/Tfer to [facility] 02 Condition: Serious Clinical Impression: Hypoxemia Pneumonia Qualifiers: Pneumonia type: due to unspecified organism Laterality: bilateral Lung location : lower lobe of lung Qualified Code(s): J18.1 - Lobar pneumonia, unspecified organism Congestive heart failure Qualifiers: Heart failure type: unspecified Heart failure chronicity: acute on chronic Qualified Code(s): I50.9 - Heart failure, unspecified UTI (urinary tract infection) Qualifiers: Urinary tract infection type: acute cystitis Hematuria presence: with hematuria Qualified Code(s): N30.01 - Acute cystitis with hematuria - Discharge Information Referrals: Jean Kaur, SKIN SPECIALIST [Primary Care Provider] - Forms: ED Department Discharge - My Orders Last 24 Hours: My Active Orders 08/21/18 19:55 Chest 1V Frontal [CR] Stat 08/21/18 19:56 EKG Documentation Completion [RC] ASDIRECTED 08/21/18 20:30 CULTURE BLOOD [BC] Stat CULTURE BLOOD [BC] Stat Blood Culture x2 Reflex Set [OM.PC] Stat 08/21/18 20:49 Azithromycin [Zithromax] 500 mg Sodium Chloride 0.9% [Normal Saline] 250 ml IV ONETIME 08/21/18 21:20 LACTIC ACID [CHEM] Stat - Assessment/Plan Last 24 Hours: My Active Orders 08/21/18 19:55 Chest 1V Frontal [CR] Stat 08/21/18 19:56 EKG Documentation Completion [RC] ASDIRECTED 08/21/18 20:30 CULTURE BLOOD [BC] Stat CULTURE BLOOD [BC] Stat Blood Culture x2 Reflex Set [OM.PC] Stat 08/21/18 20:49 Azithromycin [Zithromax] 500 mg Sodium Chloride 0.9% [Normal Saline] 250 ml IV ONETIME 08/21/18 21:20 LACTIC ACID [CHEM] Stat Assessment:: CHF, pneumonia Plan: Transferred to [facility]
[2018-08-21] MEDS ORDERED: Furosemide 40 MG/4 ML VIAL IVPUSH ONE (20:26)
[2018-08-21] MEDS ORDERED: Furosemide 40 MG/4 ML VIAL ONE (20:27)
[2018-08-21 20:38] LABS: ANION GAP 15.5 mmol/L (5-15); CHLORIDE,CL 102 mmol/L (98-115); SODIUM,NA 141 mmol/L (136-145)
[2018-08-21] MEDS ORDERED: cefTRIAXone 1 GM Vial IVPUSH ONE (20:49)
[2018-08-21] MEDS ORDERED: Azithromycin 500 MG in Sodium Chloride 0.9% 250 ML IV ONE (20:49)
[2018-08-21] MEDS ORDERED: Sodium Chloride 0.9% 250 ML IV SCH (21:20)
[2018-08-21] MEDS ORDERED: LORazepam 2 MG/ML SDV ONE (21:50)
[2018-08-21] MEDS ORDERED: LORazepam 2 MG/ML SDV IVPUSH ONE (21:55)
--- NOTE | 2018-08-22 07:50 | CR ---
[id number] RAD/RAD Chest Portable EXAM: PORTABLE CHEST INDICATION: Shortness of breath. COMPARISON: July 10, 2007. DISCUSSION: Cardiomegaly with mild to moderate pulmonary edema and small bilateral pleural effusions consistent with congestive heart failure. The pleural effusions result in bibasilar atelectasis that could obscure other pathology. IMPRESSION: 1. Moderate congestive heart failure. Nick Rizzo MD 08/22/18 0749 Thank you for allowing us to participate in the care of your patient.
== END 2018-08-21 22:00 ==
LOC: KA.ED 19:40
DX: R09.02 Hypoxemia (principal); J18.1 Lobar pneumonia, unspecified organism; I50.9 Heart failure, unspecified; N30.01 Acute cystitis with hematuria
CPT/HCPCS: 36415; 71045; 80053; 81001; 83735; 83880; 84484; 85025; 85610; 85730; 87040; 93005; 96365; 96375; 99285-25; J0456; J0696; J1940; J2060; J7030; J7050

== ENCOUNTER 2018-12-02 17:25 | Inpatient (IN) | payer MEDICARE, OTHER ==
[2018-12-02] MEDS ORDERED: Sodium Chloride 0.9% 10 ML Syringe FLUSH PRN (17:33)
[2018-12-02] MEDS ORDERED: Sodium Chloride 0.9% 1,000 ML IV SCH (17:45)
[2018-12-02] MEDS ORDERED: Dextrose 5%-0.45% NaCl 1,000 ML IV SCH (17:45)
[2018-12-02] MEDS ORDERED: Furosemide 40 MG/4 ML VIAL IVPUSH ONE (23:45)
[2018-12-03 08:26] LABS: ANION GAP 9.1 mmol/L (5-15); CHLORIDE,CL 102 mmol/L (98-115); SODIUM,NA 136 mmol/L (136-145)
--- NOTE | 2018-12-03 13:52 | PCM.PN ---
- General Info Date of Service: 12/03/18 Admission Dx/Problem (Free Text): Severe anemia - Review of Systems General: Reports: Weakness, Fatigue. Denies: Fever, Chills HEENT: Reports: No Symptoms Pulmonary: Denies: Shortness of Breath, Cough, Sputum, Wheezing Cardiovascular: Reports: Edema (chronic, unchanged edema). Denies: Chest Pain, Palpitations Gastrointestinal: Reports: Constipation (chronic; last BM yesterday). Denies: Abdominal Pain, Diarrhea, Nausea Genitourinary: Reports: Other (indwelling catheter) Skin: Reports: Pallor Neurological: Reports: Confusion (chronic), Weakness. Denies: Dizziness, Headache, Numbness, Tingling, Difficulty Walking Psychiatric: Reports: Confusion. Denies: Depression - Patient Data Vitals - Most Recent: Last Vital Signs Temp 97.2 F 12/03/18 11:00 Pulse 69 12/03/18 11:00 Resp 16 12/03/18 11:00 BP 120/68 12/03/18 11:00 Pulse Ox 99 12/03/18 11:00 Weight - Most Recent: 165 lb 9.6 oz I&O - Last 24 Hours: Intake & Output 12/02/18 12/03/18 12/03/18 22:59 06:59 14:59 Intake Total 240 761 34 Output Total 500 1625 Balance -260 -864 34 Lab Results Last 24 Hours: Laboratory Results - last 24 hr 12/02/18 12/02/18 12/02/18 Range/Units 17:50 17:50 22:36 WBC (5.00-10.00) 10^3/uL RBC (4.50-6.00) 10^6/uL Hgb (13.0-17.0) g/dL Hct (40.0-52.0) % MCV (82.0-92.0) fL MCH (27.0-31.0) pg MCHC (32.0-36.0) g/dL RDW (11.5-14.5) % Plt Count (150-400) 10^3/uL MPV (7.4-10.4) fL Immature Gran % (Auto) (0.0-5.0) % Neut % (Auto) (50.0-70.0) % Lymph % (Auto) (20.0-40.0) % Smith % (Auto) (2.0-8.0) % Eos % (Auto) (1.0-3.0) % Baso % (Auto) (0.0-1.0) % Immature Gran # (Auto) (0.00-0.50) 10^3/uL Neut # (Auto) (2.50-7.00) 10^3/uL Lymph # (Auto) (1.00-4.00) 10^3/uL Smith # (Auto) (0.10-0.80) 10^3/uL Eos # (Auto) (0.10-0.30) 10^3/uL Baso # (Auto) (0.00-0.10) 10^3/uL Sodium (136-145) mmol/L Potassium (3.3-5.3) mmol/L Chloride (98-115) mmol/L Carbon Dioxide (21.0-32.0) mmol/L Anion Gap (5-15) mmol/L BUN (6-25) mg/dL Creatinine (0.51-1.17) mg/dL Est Cr Clr Drug Dosing mL/min Estimated GFR (MDRD) mL/min Glucose (75 - 99) mg/dL Calcium (8.7-10.3) mg/dL B-Natriuretic Peptide 254 H (0-100) pg/mL Specimen Type . Urine Color Red H (YELLOW) Urine Appearance Cloudy H (CLEAR) Urine pH 6.0 (5.0-9.0) Ur Specific [place] 1.015 (1.005-1.030) Urine Protein >=300 H (NEGATIVE) mg/dL Urine Glucose (UA) Negative (NEGATIVE) mg/dL Urine Ketones 15 H (NEGATIVE) mg/dL Urine Occult Blood Large H (NEGATIVE) Urine Nitrite Negative (NEGATIVE) Urine Bilirubin Large H (NEGATIVE) Urine Urobilinogen 1.0 (0.2-1.0) E.U./dL Ur Leukocyte Esterase Large H (NEGATIVE) Urine RBC Packed (0-5) /HPF Urine WBC Packed (0-5) /HPF Urine Bacteria Moderate H (NONE TO FEW) /HPF Blood Type A POSITIVE Gel Antibody Screen Negative Crossmatch See Detail 12/03/18 12/03/18 Range/Units 07:45 07:45 WBC 6.00 D (5.00-10.00) 10^3/uL RBC 2.32 L (4.50-6.00) 10^6/uL Hgb 6.3 L* D (13.0-17.0) g/dL Hct 19.6 L* (40.0-52.0) % MCV 84.5 D (82.0-92.0) fL MCH 27.2 (27.0-31.0) pg MCHC 32.1 (32.0-36.0) g/dL RDW 15.7 H (11.5-14.5) % Plt Count 153 D (150-400) 10^3/uL MPV 9.3 (7.4-10.4) fL Immature Gran % (Auto) 0.2 (0.0-5.0) % Neut % (Auto) 58.9 (50.0-70.0) % Lymph % (Auto) 27.5 (20.0-40.0) % Smith % (Auto) 7.7 (2.0-8.0) % Eos % (Auto) 5.0 H (1.0-3.0) % Baso % (Auto) 0.7 (0.0-1.0) % Immature Gran # (Auto) 0.01 (0.00-0.50) 10^3/uL Neut # (Auto) 3.54 (2.50-7.00) 10^3/uL Lymph # (Auto) 1.65 (1.00-4.00) 10^3/uL Smith # (Auto) 0.46 (0.10-0.80) 10^3/uL Eos # (Auto) 0.30 (0.10-0.30) 10^3/uL Baso # (Auto) 0.04 (0.00-0.10) 10^3/uL Sodium 136 (136-145) mmol/L Potassium 3.4 (3.3-5.3) mmol/L Chloride 102 (98-115) mmol/L Carbon Dioxide 28.3 (21.0-32.0) mmol/L Anion Gap 9.1 (5-15) mmol/L BUN 29 H (6-25) mg/dL Creatinine 0.74 (0.51-1.17) mg/dL Est Cr Clr Drug Dosing 71.25 mL/min Estimated GFR (MDRD) > 60 mL/min Glucose 98 (75 - 99) mg/dL Calcium 8.0 L (8.7-10.3) mg/dL B-Natriuretic Peptide (0-100) pg/mL Specimen Type Urine Color (YELLOW) Urine Appearance (CLEAR) Urine pH (5.0-9.0) Ur Specific [place] (1.005-1.030) Urine Protein (NEGATIVE) mg/dL Urine Glucose (UA) (NEGATIVE) mg/dL Urine Ketones (NEGATIVE) mg/dL Urine Occult Blood (NEGATIVE) Urine Nitrite (NEGATIVE) Urine Bilirubin (NEGATIVE) Urine Urobilinogen (0.2-1.0) E.U./dL Ur Leukocyte Esterase (NEGATIVE) Urine RBC (0-5) /HPF Urine WBC (0-5) /HPF Urine Bacteria (NONE TO FEW) /HPF Blood Type Gel Antibody Screen Crossmatch [place] Results Last 24 Hours: Microbiology 12/02/18 22:36 Urine Culture - Final Urine, Voided Med Orders - Current: Current Medications Sodium Chloride (Normal Saline) 1,000 mls @ 100 mls/hr IV ASDIRECTED [facility] Last Admin: 12/02/18 18:37 Dose: 100 mls/hr Sodium Chloride (Saline Flush) 10 ml FLUSH Q8HR PRN PRN Reason: keep vein open Discontinued Medications Furosemide (Lasix) 20 mg IVPUSH NOW ONE Stop: 12/02/18 23:46 Last Admin: 12/03/18 00:09 Dose: 20 mg Dextrose/Sodium Chloride (Dextrose 5%-1/2 Ns) 1,000 mls @ 25 mls/hr IV ASDIRECTED [facility] - Exam Quality Assessment: No: Supplemental Oxygen General: Alert, Other (underlying confusion ) Neck: Supple. No: No JVD Lungs: Clear to Auscultation, Normal Respiratory Effort Cardiovascular: Murmurs GI/Abdominal Exam: Normal Bowel Sounds, Soft, Non-Tender, No Distention Extremities: Non-Tender, Pedal Edema, Other (trace pitting ankle/foot edema ) Skin: Warm, Dry Neurological: No New Focal Deficit Psy/Mental Status: Alert Physical Findings Comments:: presence of an indwelling catheter with notable hematuria. no clots noted - Problem List Review Problem List Initiated/Reviewed/Updated: Yes - Plan Plan:: HPI summary: This is an 87 year old male who was admitted from the [facility] in [place] on 12/02/18. The patient was seen in the clinic for initial concerns of hypotension. The patient had checked his BP at home with a wrist monitor and noted it to be low at 98/39. However, upon arrival to the clinic the patients BP was noted to be normal at 134/60. The patient was noted to be quite pale. He denied any dizziness, weakness, CP, or SOB. Noted chronic fatigue and mild cognitive changes. CBC and CMP were obtained with a critically low hemoglobin at 5.3. The patient does have a history of an enlarged prostate with urinary obstruction for which he has a chronic indwelling catheter. Urine has been noted to be bloody for the past two days. Daughter states that at nighttime the patient becomes confused and pulls on the catheter. She states the bag will turn brown/red with blood and resolve after a couple of days. Labs in clinic: WBC- 7.9 Hgb- 5.3 Hct- 16.5 Hospital course: patient has received 1u PRBCs given slowly with IV Lasix following administration. No S&S suggestive of fluid overload. urinalysis done and showing large amount of protein, blood, ketones, large leukocytes, moderate bacteria. Culture showing Gram (+) cocci, catalase positive, coagulase positive. This is likely chronic secondary to indwelling catheter use and not suggestive of acute infection. Patient is asymptomatic and is afebrile, denies flank pain, normal WBC count. Monitor for S&S of infection. Hospitalization problems: #Severe anemia-normochromic, normocytic. Hgb is increased to 6.3. Proceed with second unit of PRBCs. Continue to monitor and report S&S of fluid overload. Will recheck hemoglobin this evening. Patient will likely require a 3rd unit PRBC to achieve hgb >8. Stool for occult blood uncollected. Suspect amor hematuria as the source of acute bleeding. Iron studies, Folate, and B12 levels pending. 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 Daily dressing changes. Chronic, stable conditions: #Chronic diastolic HF- Hold home Lasix. IV Lasix given between units of blood. Weight is down nearly 4 pounds from yesterday. #history of [place] #History of MRSA bacteremia. Hospitalization details: # FEN: additional 1U PRBC today with recheck CBC this afternoon. fluids otherwise saline locked. Monitor I/O. I/O today (-1321). Daily weights. Renal function stable- creatinine 0.74, mild increase in BUN at 29. GFT >60. Recheck renal and electrolytes in AM. Resume home potassium. Supplement as needed with Lasix administration. Monitor urine output closely. If continued hematuria, recommend cystoscopy. # PPX: hold ASA given acute blood loss. VTE risk score 5. Given severe anemia and acute blood loss LMWH contraindication. Will proceed with LISA stockings and sequential compression devices if patient tolerates. # Code status: Full Code # Disposition: continue inpatient status.
[2018-12-03] MEDS ORDERED: Furosemide 40 MG/4 ML VIAL IVPUSH ONE (17:16)
[2018-12-03] MEDS: Potassium Chloride 20 MEQ Tab.ER PO SCH (17:33)
[2018-12-04 08:40] LABS: ANION GAP 8.2 mmol/L (5-15); CHLORIDE,CL 104 mmol/L (98-115); SODIUM,NA 137 mmol/L (136-145)
[2018-12-04] MEDS: Potassium Chloride 20 MEQ Tab.ER PO SCH (12:02)
[2018-12-04] MEDS ORDERED: cefTRIAXone 1 GM Vial IVPUSH SCH (16:00)
--- NOTE | 2018-12-04 16:04 | PCM.PN ---
- General Info Date of Service: 12/04/18 - Review of Systems General: Reports: Weakness, Fatigue. Denies: Fever, Chills, Night Sweats HEENT: Reports: No Symptoms Pulmonary: Denies: Shortness of Breath, Cough, Sputum, Wheezing Cardiovascular: Reports: Edema (trace chronic edema). Denies: Chest Pain, Palpitations Gastrointestinal: Denies: Abdominal Pain, Constipation, Diarrhea, Nausea, Vomiting Genitourinary: Reports: Other (chronic indwelling catheter) Musculoskeletal: Reports: No Symptoms Skin: Reports: No Symptoms, Pallor Neurological: Reports: Confusion (chronic. ) Psychiatric: Reports: Confusion (chronic) - Patient Data Vitals - Most Recent: Last Vital Signs Temp 97.9 F 12/04/18 11:00 Pulse 77 12/04/18 11:00 Resp 16 12/04/18 11:00 BP 104/64 12/04/18 11:00 Pulse Ox 100 12/04/18 11:00 Weight - Most Recent: 165 lb 9.6 oz I&O - Last 24 Hours: Intake & Output 12/04/18 12/04/18 12/04/18 06:59 14:59 22:59 Intake Total 100 440 Output Total 600 500 Balance -500 -60 Lab Results Last 24 Hours: Laboratory Results - last 24 hr 12/03/18 12/04/18 12/04/18 Range/Units 19:15 07:25 07:25 WBC 7.93 6.49 (5.00-10.00) 10^3/uL RBC 2.96 L 2.74 L (4.50-6.00) 10^6/uL Hgb 8.1 L D 7.5 L (13.0-17.0) g/dL Hct 25.1 L 23.3 L (40.0-52.0) % MCV 84.8 85.0 (82.0-92.0) fL MCH 27.4 27.4 (27.0-31.0) pg MCHC 32.3 32.2 (32.0-36.0) g/dL RDW 15.5 H 15.6 H (11.5-14.5) % Plt Count 162 160 (150-400) 10^3/uL MPV 9.4 10.0 (7.4-10.4) fL Immature Gran % (Auto) 0.1 0.2 (0.0-5.0) % Neut % (Auto) 62.2 60.7 (50.0-70.0) % Lymph % (Auto) 26.5 24.0 (20.0-40.0) % [place] % (Auto) 6.2 8.0 (2.0-8.0) % Eos % (Auto) 4.5 H 6.6 H (1.0-3.0) % Baso % (Auto) 0.5 0.5 (0.0-1.0) % Immature Gran # (Auto) 0.01 0.01 (0.00-0.50) 10^3/uL Neut # (Auto) 4.93 3.94 (2.50-7.00) 10^3/uL Lymph # (Auto) 2.10 1.56 (1.00-4.00) 10^3/uL [place] # (Auto) 0.49 0.52 (0.10-0.80) 10^3/uL Eos # (Auto) 0.36 H 0.43 H (0.10-0.30) 10^3/uL Baso # (Auto) 0.04 0.03 (0.00-0.10) 10^3/uL Sodium 137 (136-145) mmol/L Potassium 3.6 (3.3-5.3) mmol/L Chloride 104 (98-115) mmol/L Carbon Dioxide 28.4 (21.0-32.0) mmol/L Anion Gap 8.2 (5-15) mmol/L BUN 21 (6-25) mg/dL Creatinine 0.73 (0.51-1.17) mg/dL Est Cr Clr Drug Dosing 72.22 mL/min Estimated GFR (MDRD) > 60 mL/min Glucose 91 (75 - 99) mg/dL Calcium 8.2 L (8.7-10.3) mg/dL Med Orders - Current: Current Medications Ceftriaxone Sodium (Rocephin) 1 gm IVPUSH Q24H [facility] Sodium Chloride (Normal Saline) 1,000 mls @ 100 mls/hr IV ASDIRECTED [facility] Last Admin: 12/02/18 18:37 Dose: 100 mls/hr Potassium Chloride (Klor-Con M20) 20 meq PO DAILY [facility] Last Admin: 12/04/18 12:02 Dose: 20 meq Sodium Chloride (Saline Flush) 10 ml FLUSH Q8HR PRN PRN Reason: keep vein open Last Admin: 12/03/18 17:34 Dose: 10 ml Discontinued Medications Furosemide (Lasix) 20 mg IVPUSH NOW ONE Stop: 12/02/18 23:46 Last Admin: 12/03/18 00:09 Dose: 20 mg Furosemide (Lasix) 20 mg IVPUSH NOW ONE Stop: 12/03/18 17:17 Last Admin: 12/03/18 17:33 Dose: 20 mg Dextrose/Sodium Chloride (Dextrose 5%-1/2 Ns) 1,000 mls @ 25 mls/hr IV ASDIRECTED [facility] - Exam General: Alert Neck: Supple, No JVD Lungs: Clear to Auscultation, Normal Respiratory Effort Cardiovascular: Regular Rate, Regular Rhythm, Murmurs GI/Abdominal Exam: Normal Bowel Sounds, Soft, Non-Tender, No Distention (Male) Exam: Deferred, Other (chronic indwelling ruiz catheter) Back Exam: Normal Inspection Extremities: Other (trace foot/ankle edema) Skin: Other (Notable Pallor) Neurological: No New Focal Deficit Psy/Mental Status: Other (baseline confusion. ) Physical Findings Comments:: Chronic indwelling Ruiz catheter in place. Still noted is amor hematuria. No clotting is noted. - Problem List Review Problem List Initiated/Reviewed/Updated: Yes - My Orders Last 24 Hours: My Active Orders 12/03/18 16:19 Communication Order [RC] BID 12/03/18 17:00 Potassium Chloride [Klor-Con M20] 20 meq PO DAILY 12/03/18 17:45 Antiembolic Devices [RC] PER UNIT ROUTINE Sequential Compression Device [OM.PC] Routine 12/04/18 16:00 cefTRIAXone [Rocephin] 1 gm IVPUSH Q24H - Plan Plan:: HPI summary: This is an 87 year old male who was admitted from the [facility] in [place] on 12/02/18. The patient was seen in the clinic for initial concerns of hypotension. The patient had checked his BP at home with a wrist monitor and noted it to be low at 98/39. However, upon arrival to the clinic the patients BP was noted to be normal at 134/60. The patient was noted to be quite pale. He denied any dizziness, weakness, CP, or SOB. Noted chronic fatigue and mild cognitive changes. CBC and CMP were obtained with a critically low hemoglobin at 5.3. The patient does have a history of an enlarged prostate with urinary obstruction for which he has a chronic indwelling catheter. Urine has been noted to be bloody since around 11/29/18. Daughter states that at nighttime the patient becomes confused and pulls on the catheter. She states the bag will turn brown/red with blood and resolve after a couple of days. Labs in clinic: WBC- 7.9 Hgb- 5.3 Hct- 16.5 Hospital course: Patient has received 2u PRBCs given slowly with IV Lasix following administration. No S&S suggestive of fluid overload. urinalysis done and showing large amount of protein, blood, ketones, large leukocytes, moderate bacteria. Culture showing Gram (+) cocci, catalase positive, coagulase positive. Question if this is chronic secondary to indwelling catheter use. Patient is asymptomatic and is afebrile, denies flank pain, normal WBC count. Consult with urology who recommends starting abx therapy. Will start 1g IV rocephin. Hospitalization problems: #Severe anemia-normochromic, normocytic. Hgb increased to 8.1 initially following transfusion of 2U PRBC. However hemoglobin drop again noted today at 7.5. Will Trasfuse 1U PRBC today with recheck labs in the AM. Stool for occult blood uncollected. Suspect amor hematuria as the source of acute blood loss anemia. Iron studies, Folate, and B12 levels pending. #Enlarged prostate with urinary obstruction with chronic indwelling Ruiz catheter- follows with urology in [place]. Monthly catheter changes. Chronic, stable conditions: #Chronic diastolic HF- Hold home Lasix. IV Lasix given between units of blood. #history of [place] #History of MRSA bacteremia. Hospitalization details: # FEN: additional 1U PRBC today with Lasix 20 mg following. fluids otherwise saline locked. Monitor I/O. Daily weights. Renal function stable- creatinine 0.73, BUN 21. GFR >60. Recheck renal and electrolytes in AM. Resume home potassium. Supplement as needed with Lasix administration. Monitor urine output closely. # PPX: hold ASA given acute blood loss. VTE risk score 5. Given severe anemia and acute blood loss LMWH contraindication. Will proceed with LISA stockings and sequential compression devices if patient tolerates. # Code status: Full Code # Disposition: Patient requiring further evaluation given ongoing amor hematuria and acute blood loss/anemia. Outgoing call placed to [facility] in [place] as Dr. Selby (urology) has been managing patient, however Dr. Selby is not recreational therapy technician this weekend. Alternatively consult call placed through [facility] in [place] and spoke with recreational therapy technician urologist Dr. Kaufman who recommends patient follow-up with main urologist. Dr. Kaufman recommends continued plan of care and consideration for alternative catheter placement here locally. [place] Will continue inpatient status. Plan for consultation with urology in [place] tomorrow to arrange further transfer/follow-up. Was notified that Dr. Selby is recreational therapy technician tomorrow in [place] if indicated.
[2018-12-04] MEDS ORDERED: Furosemide 40 MG/4 ML VIAL IVPUSH ONE ×2 (16:08→22:00)
[2018-12-05 08:21] LABS: ANION GAP 10.8 mmol/L (5-15); CHLORIDE,CL 100 mmol/L (98-115); SODIUM,NA 137 mmol/L (136-145)
[2018-12-05] MEDS: Potassium Chloride 20 MEQ Tab.ER PO SCH (10:09)
--- NOTE | 2018-12-05 11:31 | PCM.DCSUM1 ---
Discharge Summary - Hospital Course Diagnosis: Stroke: No - Discharge Data Discharge Date: 12/05/18 Discharge Disposition: Home, Self-Care 01 Condition: Fair - Patient Instructions Diet: Usual Diet as Tolerated Driving: Do Not Drive Showering/Bathing: May Shower Other/Special Instructions: report any dizziness, report any lack of urine. Will check hemaglobin tomorrow [facility]. Rocephin injection tomorrow [facility]. - Discharge Plan *PRESCRIPTION DRUG MONITORING PROGRAM REVIEWED*: Not Applicable *COPY OF PRESCRIPTION DRUG MONITORING REPORT IN PATIENT CRISTY: Not Applicable Home Medications: Home Meds Potassium Chloride [Klor-Con M20] 20 meq PO DAILY #60 tab.er 07/28/17 [Rx] Furosemide [Lasix] 20 mg PO ASDIRECTED 12/02/18 [History] Ketoconazole [Nizoral 2% Crm] 1 applic TOP DAILY 12/02/18 [History] Referrals: Jean Kaur, [facility] [Nurse Practitioner] - 12/07/18 4:30 pm - Discharge Summary/Plan Comment DC Time >30 min.: Yes Discharge Summary/Plan Comment: final diagnosis Anemia, blood loss UTI, catheter associate BPH, chronic indwelling History 87 year old male who was admitted from the [facility] in [place] on 12/02/18. The patient was seen in the clinic for initial concerns of hypotension. The patient had checked his BP at home with a wrist monitor and noted it to be low at 98/39. However, upon arrival to the clinic the patients BP was noted to be normal at 134/60. The patient was noted to be quite pale. He denied any dizziness, weakness, CP, or SOB. Noted chronic fatigue and mild cognitive changes. CBC and CMP were obtained with a critically low hemoglobin at 5.3 eventually hemoglobin reached 8.9 on discharge. The patient does have a history of an enlarged prostate with urinary obstruction for which he has a chronic indwelling catheter. Urine has been noted to be bloody since around 11/29. Daughter stated that at nighttime the patient becomes confused and pulls on the catheter. She states the bag will turn brown/red with blood and resolve after a couple of days. ASA was held. Hospital course: Patient has received a total of 3u PRBCs given slowly with IV Lasix following administration. No S&S suggestive of fluid overload. urinalysis done and showing large amount of protein, blood, ketones, large leukocytes, moderate bacteria. Culture showing Gram (+) cocci, catalase positive, coagulase positive. Question if this is chronic secondary to indwelling catheter use. Patient is asymptomatic and is afebrile, denies flank pain, normal WBC count. urology was consulted who recommended starting abx therapy. Started abx 1g IV rocephin. Bladder scan morning of d/c reassuring at 38 mL residual medication changes/adjustments upon discharge Holding aspirin Disposition: patient will be discharge from hospital, we'll try to set him up here locally with Dr. Russ. daily hemoglobin Rocephin [facility] x 2 more doses Follow-up with [facility] Wednesday - General Info Functional Status: Reports: Pain Controlled - Review of Systems HEENT: Reports: No Symptoms Pulmonary: Reports: No Symptoms Cardiovascular: Reports: No Symptoms Gastrointestinal: Reports: Constipation Genitourinary: Reports: Hematuria. Denies: Retention - Patient Data Vitals - Most Recent: Last Vital Signs Temp 97.8 F 12/05/18 07:00 Pulse 79 12/05/18 07:00 Resp 18 12/05/18 07:00 BP 118/68 12/05/18 07:00 Pulse Ox 95 12/05/18 07:00 Weight - Most Recent: 163 lb 6 oz I&O - Last 24 hours: Intake & Output 12/04/18 12/05/18 12/05/18 22:59 06:59 14:59 Intake Total 700 450 Output Total 300 2900 Balance 400 -2450 Lab Results - Last 24 hrs: Laboratory Results - last 24 hr 12/02/18 12/05/18 12/05/18 Range/Units 17:50 07:15 07:15 WBC 6.19 (5.00-10.00) 10^3/uL RBC 3.17 L (4.50-6.00) 10^6/uL Hgb 8.9 L (13.0-17.0) g/dL Hct 27.0 L (40.0-52.0) % MCV 85.2 (82.0-92.0) fL MCH 28.1 (27.0-31.0) pg MCHC 33.0 (32.0-36.0) g/dL RDW 15.2 H (11.5-14.5) % Plt Count 174 (150-400) 10^3/uL MPV 10.4 (7.4-10.4) fL Immature Gran % (Auto) 0.0 (0.0-5.0) % Neut % (Auto) 64.7 (50.0-70.0) % Lymph % (Auto) 21.3 (20.0-40.0) % [place] % (Auto) 8.1 H (2.0-8.0) % Eos % (Auto) 5.3 H (1.0-3.0) % Baso % (Auto) 0.6 (0.0-1.0) % Immature Gran # (Auto) 0.00 (0.00-0.50) 10^3/uL Neut # (Auto) 4.00 (2.50-7.00) 10^3/uL Lymph # (Auto) 1.32 (1.00-4.00) 10^3/uL [place] # (Auto) 0.50 (0.10-0.80) 10^3/uL Eos # (Auto) 0.33 H (0.10-0.30) 10^3/uL Baso # (Auto) 0.04 (0.00-0.10) 10^3/uL Sodium 137 (136-145) mmol/L Potassium 3.2 L (3.3-5.3) mmol/L Chloride 100 (98-115) mmol/L Carbon Dioxide 29.4 (21.0-32.0) mmol/L Anion Gap 10.8 (5-15) mmol/L BUN 19 (6-25) mg/dL Creatinine 0.88 (0.51-1.17) mg/dL Est Cr Clr Drug Dosing 59.91 mL/min Estimated GFR (MDRD) > 60 mL/min Glucose 108 H (75 - 99) mg/dL Calcium 8.2 L (8.7-10.3) mg/dL Blood Type A POSITIVE Gel Antibody Screen Negative Crossmatch See Detail Med Orders - Current: Current Medications Ceftriaxone Sodium (Rocephin) 1 gm IVPUSH Q24H [facility] Last Admin: 12/04/18 17:06 Dose: 1 gm Sodium Chloride (Normal Saline) 1,000 mls @ 100 mls/hr IV ASDIRECTED [facility] Last Admin: 12/02/18 18:37 Dose: 100 mls/hr Potassium Chloride (Klor-Con M20) 20 meq PO DAILY [facility] Last Admin: 12/05/18 10:09 Dose: 20 meq Sodium Chloride (Saline Flush) 10 ml FLUSH Q8HR PRN PRN Reason: keep vein open Last Admin: 12/03/18 17:34 Dose: 10 ml Discontinued Medications Furosemide (Lasix) 20 mg IVPUSH NOW ONE Stop: 12/02/18 23:46 Last Admin: 12/03/18 00:09 Dose: 20 mg Furosemide (Lasix) 20 mg IVPUSH NOW ONE Stop: 12/03/18 17:17 Last Admin: 12/03/18 17:33 Dose: 20 mg Furosemide (Lasix) 20 mg IVPUSH NOW ONE Stop: 12/04/18 16:09 Last Admin: 12/04/18 20:15 Dose: Not Given Furosemide (Lasix) 20 mg IVPUSH ONETIME ONE Stop: 12/04/18 22:01 Last Admin: 12/04/18 23:31 Dose: 20 mg Dextrose/Sodium Chloride (Dextrose 5%-1/2 Ns) 1,000 mls @ 25 mls/hr IV ASDIRECTED [facility] - Exam General: Reports: Alert, Oriented Lungs: Reports: Clear to Auscultation, Normal Respiratory Effort Cardiovascular: Reports: Regular Rate, Regular Rhythm GI/Abdominal Exam: Soft (Male) Exam: Other (BLOODY APPEARANCE URINE) Rectal (Males) Exam: No: Black Stool Back Exam: Denies: CVA Tenderness (L), CVA Tenderness (R) Extremities: No Pedal Edema
[2018-12-05] MEDS ORDERED: cefTRIAXone 1 GM Vial IM SCH (12:24)
== END 2018-12-05 13:05 | disposition home or self-care (01) | DRG 699 ==
LOC: KA.MS 17:25
PROVIDERS: ADMIT Physician Assistant Medical; ATTEND Nurse Practitioner Family
DX: T83.518A Infection and inflammatory reaction due to other urinary catheter, initial encounter (principal); N13.8 Other obstructive and reflux uropathy; D62 Acute posthemorrhagic anemia; I50.32 Chronic diastolic (congestive) heart failure; Y84.6 Urinary catheterization as the cause of abnormal reaction of the patient, or of later complication, without mention of misadventure at the time of the procedure; N40.1 Benign prostatic hyperplasia with lower urinary tract symptoms; R33.8 Other retention of urine; Z79.899 Other long term (current) drug therapy; I25.2 Old myocardial infarction; Z86.14 Personal history of Methicillin resistant Staphylococcus aureus infection
CPT/HCPCS: 36415; 36430; 80048; 81001; 82607; 82728; 82746; 83540; 83550; 83880; 85025; 86850; 86900; 86901; 86920; 86922; 87045; 87046; 87086; 87088; 87147; 87186; 87899; A9270-GY; J0696; J1940; J7030; P9016

== ENCOUNTER 2018-12-28 08:20 | Emergency (ER) | payer MEDICARE, OTHER ==
[2018-12-28] MEDS: Sodium Chloride 0.9% 10 ML Syringe FLUSH PRN ×2 (08:25→10:19)
--- NOTE | 2018-12-28 09:16 | EDM.PDOC ---
ED HPI GENERAL MEDICAL PROBLEM - General Chief Complaint: General Stated Complaint: weakness Time Seen by Provider: 12/28/18 08:45 Source of Information: Reports: Patient History Limitations: Reports: No Limitations - History of Present Illness INITIAL COMMENTS - FREE TEXT/NARRATIVE: 87 YO WM presents to ER with complaint of weakness per family. Pt recently had a blood transfusion and this am he states he was ambulating and tripped on the rug. Pt was able to get up from the floor and denies any injuries. Pt came to ER with daughter by private car and was able to ambulate to treatment room without difficulty. Pt without fever/chills, no chest pain, no shortness of breath no nausea/vomiting. Pt states he feels fine. Pt has a Ruiz catheter in place which was changed 2 days ago. Pt is afebrile, normotensive and no tachycardia. Pt has mild suprapubic tenderness on exam. Pt unsure when he had a bowel movement last. Onset: Today Location: Reports: Generalized Severity: Mild Improves with: Reports: None Worsens with: Reports: None Associated Symptoms: Reports: No Other Symptoms, Weakness. Denies: Chest Pain, Cough, cough w sputum, Diaphoresis, Fever/Chills, Headaches, Loss of Appetite, Malaise, Nausea/Vomiting, Seizure, Shortness of Breath, Syncope - Related Data Allergies Allergy/AdvReac Type Severity Reaction Status Date / Time No Known Allergies Allergy Verified 12/28/18 08:53 Home Meds: Home Meds Potassium Chloride [Klor-Con M20] 20 meq PO DAILY #60 tab.er 07/28/17 [Rx] Furosemide [Lasix] 20 mg PO DAILY 12/02/18 [History] Ketoconazole [Nizoral 2% Crm] 1 applic TOP DAILY 12/02/18 [History] cephALEXin [Keflex] 500 mg PO TID #30 cap 12/28/18 [Rx] Past Medical History HEENT History: Reports: Hard of Hearing, Impaired Vision Cardiovascular History: Reports: Heart Failure, [place] Respiratory History: Reports: None Gastrointestinal History: Reports: Hemorrhoids, Other (See Below) Other Gastrointestinal History: ileus in 2018 Genitourinary History: Reports: BPH, Retention, Urinary, Other (See Below) Other Genitourinary History: Has ruiz replaced monthly Musculoskeletal History: Reports: None Neurological History: Reports: None Psychiatric History: Reports: Dementia Endocrine/Metabolic History: Reports: None Hematologic History: Reports: None Immunologic History: Reports: None Oncologic (Cancer) History: Reports: Malignant Melanoma Dermatologic History: Reports: Melanoma - Infectious Disease History Infectious Disease History: Reports: None - Past Surgical History Head Surgeries/Procedures: Reports: None HEENT Surgical History: Reports: Cataract Surgery Cardiovascular Surgical History: Reports: None Respiratory Surgical History: Reports: None GI Surgical History: Reports: Appendectomy, Colonoscopy, Hernia Repair/Other Male Surgical History: Reports: None 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 Neurological Surgical History: Reports: None Musculoskeletal Surgical History: Reports: None Social & Family History - Family History Family Medical History: Noncontributory - Caffeine Use Caffeine Use: Reports: Coffee ED ROS GENERAL - Review of Systems Review Of Systems: See Below Constitutional: Reports: No Symptoms, Weakness HEENT: Reports: No Symptoms Respiratory: Reports: No Symptoms Cardiovascular: Reports: No Symptoms Endocrine: Reports: No Symptoms GI/Abdominal: Reports: No Symptoms : Reports: No Symptoms Musculoskeletal: Reports: No Symptoms Skin: Reports: No Symptoms Neurological: Reports: No Symptoms Psychiatric: Reports: No Symptoms Hematologic/Lymphatic: Reports: No Symptoms Immunologic: Reports: No Symptoms ED EXAM, GENERAL - Physical Exam Exam: See Below Exam Limited By: No Limitations General Appearance: Alert, WD/WN, No Apparent Distress Eye Exam: Bilateral Eye: PERRL Nose: Normal Inspection, Normal Mucosa, No Blood Throat/Mouth: Normal Inspection, Normal Lips, Normal Teeth, Normal Gums, Normal Oropharynx, Normal Voice, No Airway Compromise Head: Atraumatic, Normocephalic Neck: Normal Inspection, Supple, Non-Tender, Full Range of Motion Respiratory/Chest: No Respiratory Distress, Lungs Clear, Normal Breath Sounds, No Accessory Muscle Use, Chest Non-Tender Cardiovascular: Normal Peripheral Pulses, Regular Rate, Rhythm, No Edema, No Gallop, No JVD, No Murmur, No Rub GI/Abdominal: Normal Bowel Sounds, Soft, No Organomegaly, No Distention, No Abnormal Bruit, No Mass, Tender (suprapubic) Back Exam: Normal Inspection, Full Range of Motion, NT Extremities: Normal Inspection, Normal Range of Motion, Non-Tender, Normal Capillary Refill, No Pedal Edema Neurological: Alert, Oriented, CN II-XII Intact, Normal Cognition, Normal Gait, Normal Reflexes, No Motor/Sensory Deficits Psychiatric: Normal Affect, Normal Mood Skin Exam: Warm, Dry, Intact, Normal Color, No Rash Lymphatic: No Adenopathy EKG INTERPRETATION EKG Date: 12/28/18 Time: 08:38 Rhythm: NSR Rate (Beats/Min): 69 [place]: Normal P-Wave: Present QRS: Normal ST-T: Normal QT: Normal Comparison: NA - No Prior EKG Course - Vital Signs Last Recorded V/S: Last Vital Signs Temp 36.4 C 12/28/18 08:25 Pulse 74 12/28/18 08:25 Resp 20 12/28/18 08:25 BP 136/62 12/28/18 08:25 Pulse Ox 97 12/28/18 08:25 - Orders/Labs/Meds Orders: Active Orders 24 hr Category Date Time Status EKG Documentation Completion [RC] ASDIRECTED Care 12/28/18 09:01 Active Ruiz Catheter Insertion [Insert Urinary Catheter] [OM. Care 12/28/18 09:15 Ordered PC] Q24H Peripheral IV Care [RC] . DIRECTED Care 12/28/18 09:01 Active Urinary Catheter Assessment [RC] ASDIRECTED Care 12/28/18 09:03 Active Chest 1V Frontal [CR] Stat Exams 12/28/18 09:01 Taken UA W/MICROSCOPIC [URIN] Stat Lab 12/28/18 09:01 Ordered Sodium Chloride 0.9% [Saline Flush] Med 12/28/18 09:01 Active 10 ml FLUSH Q8HR PRN Peripheral IV Insertion Adult [OM.PC] Routine Oth 12/28/18 09:01 Ordered EKG 12 Lead [EK] Routine Ther 12/28/18 09:01 Ordered Medication Orders Sodium Chloride (Saline Flush) 10 ml FLUSH Q8HR PRN PRN Reason: keep vein open Labs: Laboratory Tests 12/28/18 12/28/18 12/28/18 Range/Units 08:35 08:35 08:55 WBC 6.27 (5.00-10.00) 10^3/uL RBC 3.19 L (4.50-6.00) 10^6/uL Hgb 8.6 L (13.0-17.0) g/dL Hct 26.5 L (40.0-52.0) % MCV 83.1 (82.0-92.0) fL MCH 27.0 (27.0-31.0) pg MCHC 32.5 (32.0-36.0) g/dL RDW 14.4 (11.5-14.5) % Plt Count 229 (150-400) 10^3/uL MPV 9.7 (7.4-10.4) fL Immature Gran % (Auto) 1.0 (0.0-5.0) % Neut % (Auto) 54.7 (50.0-70.0) % Lymph % (Auto) 33.8 (20.0-40.0) % [place] % (Auto) 6.2 (2.0-8.0) % Eos % (Auto) 4.0 H (1.0-3.0) % Baso % (Auto) 0.3 (0.0-1.0) % Immature Gran # (Auto) 0.06 (0.00-0.50) 10^3/uL Neut # (Auto) 3.43 (2.50-7.00) 10^3/uL Lymph # (Auto) 2.12 (1.00-4.00) 10^3/uL [place] # (Auto) 0.39 (0.10-0.80) 10^3/uL Eos # (Auto) 0.25 (0.10-0.30) 10^3/uL Baso # (Auto) 0.02 (0.00-0.10) 10^3/uL Sodium 132 L (136-145) mmol/L Potassium 3.8 (3.3-5.3) mmol/L Chloride 97 L (98-115) mmol/L Carbon Dioxide 27.1 (21.0-32.0) mmol/L Anion Gap 11.7 (5-15) mmol/L BUN 14 (6-25) mg/dL Creatinine 0.79 (0.51-1.17) mg/dL Est Cr Clr Drug Dosing 66.74 mL/min Estimated GFR (MDRD) > 60 mL/min Glucose 162 H (75 - 99) mg/dL Calcium 8.6 L (8.7-10.3) mg/dL Total Bilirubin 0.3 (0.2-1.0) mg/dL AST 29 (15-37) U/L ALT 20 (12-78) U/L Alkaline Phosphatase 85 (46-116) IU/L Total Protein 7.5 (6.4-8.2) g/dL Albumin 2.95 L (3.00-4.80) g/dL Specimen Type [place] Urine Color Yellow (YELLOW) Urine Appearance Clear (CLEAR) Urine pH 5.0 (5.0-9.0) Ur Specific [place] 1.010 (1.005-1.030) Urine Protein Negative (NEGATIVE) mg/dL Urine Glucose (UA) Negative (NEGATIVE) mg/dL Urine Ketones Negative (NEGATIVE) mg/dL Urine Occult Blood Trace-intact H (NEGATIVE) Urine Nitrite Negative (NEGATIVE) Urine Bilirubin Negative (NEGATIVE) Urine Urobilinogen 0.2 (0.2-1.0) E.U./dL Ur Leukocyte Esterase Moderate H (NEGATIVE) Urine RBC 5-10 H (0-5) /HPF Urine WBC 50-75 H (0-5) /HPF Ur Epithelial Cells Few /LPF Urine Bacteria Few (NONE TO FEW) /HPF Meds: Medications Generic Name Dose Route Start Last Admin Trade Name Freq PRN Reason Stop Dose Admin Sodium Chloride 10 ml 12/28/18 09:01 Saline Flush FLUSH Q8HR PRN keep vein open Departure - Departure Time of Disposition: 09:25 Disposition: Home, Self-Care 01 Condition: Good Clinical Impression: Weakness Fall Qualifiers: Encounter type: initial encounter Qualified Code(s): W19.XXXA - Unspecified fall, initial encounter Urinary tract infection Qualifiers: Urinary tract infection type: acute cystitis Hematuria presence: with hematuria Qualified Code(s): N30.01 - Acute cystitis with hematuria - Discharge Information Prescriptions: cephALEXin [Keflex] 500 mg PO TID #30 cap Instructions: Weakness, [id number], Catheter-Associated Urinary Tract Infection FAQs - [facility] Referrals: Jean Kaur, PLANT OPERATIONS WORKER [Primary Care Provider] - Forms: ED Department Discharge Additional Instructions: 1. discharge home 2. follow up in clinic in 48 hours for recheck 3. keflex 500 mg every 8 hours x 10 days 4. return to ER for worsening symptoms - My Orders Last 24 Hours: My Active Orders 12/28/18 09:01 EKG Documentation Completion [RC] ASDIRECTED Peripheral IV Care [RC] . DIRECTED Chest 1V Frontal [CR] Stat UA W/MICROSCOPIC [URIN] Stat Sodium Chloride 0.9% [Saline Flush] 10 ml FLUSH Q8HR PRN Peripheral IV Insertion Adult [OM.PC] Routine EKG 12 Lead [EK] Routine 12/28/18 09:03 Urinary Catheter Assessment [RC] ASDIRECTED 12/28/18 09:15 Ruiz Catheter Insertion [Insert Urinary Catheter] [OM.PC] Q24H - Assessment/Plan Last 24 Hours: My Active Orders 12/28/18 09:01 EKG Documentation Completion [RC] ASDIRECTED Peripheral IV Care [RC] . DIRECTED Chest 1V Frontal [CR] Stat UA W/MICROSCOPIC [URIN] Stat Sodium Chloride 0.9% [Saline Flush] 10 ml FLUSH Q8HR PRN Peripheral IV Insertion Adult [OM.PC] Routine EKG 12 Lead [EK] Routine 12/28/18 09:03 Urinary Catheter Assessment [RC] ASDIRECTED 12/28/18 09:15 Ruiz Catheter Insertion [Insert Urinary Catheter] [OM.PC] Q24H Assessment:: 1. fall 2. weakness 3. UTI Plan: 1. discharge home 2. follow up in clinic in 48 hours for recheck 3. keflex 500 mg every 8 hours x 10 days 4. return to ER for worsening symptoms
[2018-12-28 09:19] LABS: ANION GAP 11.7 mmol/L (5-15); CHLORIDE,CL 97 mmol/L (98-115); SODIUM,NA 132 mmol/L (136-145)
[2018-12-28] MEDS ORDERED: cefTRIAXone 1 GM Vial IVPUSH ONE (09:23)
--- NOTE | 2018-12-28 09:28 | CR ---
[id number] RAD/RAD Chest PA or AP 1V EXAM: FRONTAL CHEST INDICATION: Weakness. COMPARISON: August 23, 2018. DISCUSSION: There is cardiomegaly with mild central vascular congestion with improvement in pulmonary edema relative to the prior study. Small right and ucdqz-[id number] left pleural effusions appear decreased and mildly increased respectively. There is associated atelectasis in both lung bases which could obscure other underlying pathology. IMPRESSION: 1. Mild congestive heart failure including early interstitial edema, small to moderate left and small right pleural effusions. Ncik Rizzo MD 12/28/18 0927 Thank you for allowing us to participate in the care of your patient.
== END 2018-12-28 09:40 | disposition home or self-care (01) ==
LOC: KA.ED 08:20
DX: N30.01 Acute cystitis with hematuria (principal); R53.1 Weakness; I25.2 Old myocardial infarction; Z98.49 Cataract extraction status, unspecified eye; Z90.49 Acquired absence of other specified parts of digestive tract; W22.8XXA Striking against or struck by other objects, initial encounter
CPT/HCPCS: 36415; 71045; 80053; 81001; 85025; 93005; 96374; 99285; J0696; 99284

== ENCOUNTER 2019-01-05 15:05 | Emergency (ER) | payer MEDICARE, OTHER ==
--- NOTE | 2019-01-05 16:12 | EDM.PDOC ---
ED HPI GENERAL MEDICAL PROBLEM - General Chief Complaint: General Time Seen by Provider: 01/05/19 15:43 Source of Information: Reports: Patient, Family (dtr) History Limitations: Reports: No Limitations - History of Present Illness INITIAL COMMENTS - FREE TEXT/NARRATIVE: Patient presents with right low back pain after falling backwards 8 days ago. He says it isn't what he would call "pain", just sore. He also has a bruise on middle back, his daughter tells me. He was evaluated in the ER after the fall and has followed up in clinic for it too. He had a clinic appointment for today but when his daughter picked him up she noticed he was having difficulty walking so brought him to ER instead. He has an indwelling catheter that is changed monthly. No fever. Treatments RN LVN: Reports: Cold Therapy, NSAIDS, Other (see below) Other Treatments RN LVN: heat therapy Lower Back Pain Score (Numeric/FACES): 4 - Related Data Allergies Allergy/AdvReac Type Severity Reaction Status Date / Time No Known Allergies Allergy Verified 01/05/19 15:14 Home Meds: Home Meds Potassium Chloride [Klor-Con M20] 20 meq PO DAILY #60 tab.er 07/28/17 [Rx] Furosemide [Lasix] 40 mg PO DAILY 12/02/18 [History] Ketoconazole [Nizoral 2% Crm] 1 applic TOP DAILY PRN 12/02/18 [History] cephALEXin [Keflex] 500 mg PO TID #30 cap 12/28/18 [Rx] Past Medical History HEENT History: Reports: Hard of Hearing, Impaired Vision Cardiovascular History: Reports: Heart Failure, [place] Respiratory History: Reports: None Gastrointestinal History: Reports: Hemorrhoids, Other (See Below) Other Gastrointestinal History: ileus in 2018 Genitourinary History: Reports: BPH, Retention, Urinary, Other (See Below) Other Genitourinary History: Has ruiz replaced monthly Musculoskeletal History: Reports: None Neurological History: Reports: None Psychiatric History: Reports: Dementia Endocrine/Metabolic History: Reports: None Hematologic History: Reports: None Immunologic History: Reports: None Oncologic (Cancer) History: Reports: Malignant Melanoma Dermatologic History: Reports: Melanoma - Infectious Disease History Infectious Disease History: Reports: None - Past Surgical History Head Surgeries/Procedures: Reports: None HEENT Surgical History: Reports: Cataract Surgery Cardiovascular Surgical History: Reports: None Respiratory Surgical History: Reports: None GI Surgical History: Reports: Appendectomy, Colonoscopy, Hernia Repair/Other Male Surgical History: Reports: None 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 Neurological Surgical History: Reports: None Musculoskeletal Surgical History: Reports: None Social & Family History - Family History Family Medical History: Noncontributory - Tobacco Use Smoking Status *Q: Former Smoker Used Tobacco, but Quit: Yes Month/Year Tobacco Last Used: quit 50 years ago - Caffeine Use Caffeine Use: Reports: Coffee - Recreational Drug Use Recreational Drug Use: No ED ROS GENERAL - Review of Systems Review Of Systems: See Below Constitutional: Denies: Fever, Chills, Malaise, Weakness HEENT: Reports: No Symptoms Respiratory: Denies: Shortness of Breath, Cough Cardiovascular: Denies: Chest Pain GI/Abdominal: Denies: Abdominal Pain, Vomiting : Denies: Dysuria, Flank Pain Musculoskeletal: Denies: Neck Pain, Shoulder Pain, Arm Pain, Leg Pain Skin: Denies: Cyanosis, Jaundice, Mottled, Pallor Neurological: Reports: Other (some dementia per daughter). Denies: Trouble Speaking Psychiatric: Denies: Agitation, Anxiety ED EXAM, GENERAL - Physical Exam Exam: See Below Exam Limited By: No Limitations General Appearance: Alert, WD/WN, No Apparent Distress Eye Exam: Bilateral Eye: EOMI, Normal Inspection, PERRL Ears: Normal External Exam, Hearing Grossly Normal Nose: Normal Inspection, No Blood Throat/Mouth: Normal Inspection, Normal Lips, Normal Voice, No Airway Compromise Head: Atraumatic, Normocephalic Neck: Normal Inspection Respiratory/Chest: No Respiratory Distress, Lungs Clear, Normal Breath Sounds, No Accessory Muscle Use Cardiovascular: Regular Rate, Rhythm, Systolic Murmur Back Exam: Other (Tender to palpation of right SI region. There is ecchymosis of right posterior-inferior ribcage consistent with week-old injury; not tender to palpation and no crepitus or deformity.). No: CVA Tenderness (L), CVA Tenderness (R), Paraspinal Tenderness, Vertebral Tenderness Extremities: Normal Inspection, Normal Range of Motion (for age), Non-Tender, Other (Patient is observed to walk a short distance un-assisted which he does without obvious difficulty or limp but he doesn't want to go further.) Neurological: Alert, Oriented, Normal Cognition, No Motor/Sensory Deficits Psychiatric: Normal Affect, Normal Mood Skin Exam: Warm, Dry, Intact, Normal Color, No Rash Course - Vital Signs Last Recorded V/S: Last Vital Signs Temp 97.8 F 01/05/19 15:09 Pulse 82 01/05/19 15:09 Resp 20 01/05/19 15:09 BP 140/71 01/05/19 15:09 Pulse Ox 95 01/05/19 15:09 - Re-Assessments/Exams Free Text/Narrative Re-Assessment/Exam: 01/05/19 16:35 Discussed findings and recommendations with patient and his daughter. Patient appears stable and is discharged to home in stable condition. Departure - Departure Time of Disposition: 16:07 Disposition: Home, Self-Care 01 Condition: Good Clinical Impression: SI (sacroiliac) pain - Discharge Information Referrals: Jean Kaur LIGHT EQUIPMENT OPERATOR [Primary Care Provider] - Additional Instructions: 1. You can continue Tylenol or Ibuprofen as directed for pain control. 2. Follow up with your PCP if not improving in 5-7 days.
== END 2019-01-05 16:30 | disposition home or self-care (01) ==
LOC: KA.ED 15:05
DX: M53.3 Sacrococcygeal disorders, not elsewhere classified (principal); I50.9 Heart failure, unspecified; I25.2 Old myocardial infarction; Z79.899 Other long term (current) drug therapy; Z87.891 Personal history of nicotine dependence; Z90.49 Acquired absence of other specified parts of digestive tract
CPT/HCPCS: 99283

== ENCOUNTER 2019-02-07 13:07 | Inpatient (IN) | payer MEDICARE, OTHER ==
[2019-02-07] MEDS ORDERED: Furosemide 40 MG/4 ML VIAL IVPUSH ONE (14:26)
[2019-02-07] MEDS: Sodium Chloride 0.9% 10 ML Syringe FLUSH PRN (14:46)
[2019-02-07] MEDS: Acetaminophen 650 MG Tab.ER PO PRN (23:34)
[2019-02-08] MEDS: Furosemide 40 MG/4 ML VIAL IVPUSH SCH ×3 (01:56→10:54)
[2019-02-08 08:10] LABS: ANION GAP 10.7 mmol/L (5-15); CHLORIDE,CL 94 mmol/L (98-115); SODIUM,NA 131 mmol/L (136-145)
[2019-02-08] MEDS: Potassium Chloride 20 MEQ Tab.ER PO SCH (08:52)
[2019-02-08] MEDS ORDERED: Furosemide 20 MG Tab PO SCH (09:00)
--- NOTE | 2019-02-08 09:34 | PCM.PN ---
- General Info Date of Service: 02/08/19 Functional Status: Reports: Pain Controlled, Tolerating Diet, Urinating (Graham catherter). Denies: Ambulating - Review of Systems General: Reports: Weakness, Fatigue, Malaise. Denies: Fever, Night Sweats Pulmonary: Reports: Shortness of Breath, Other. Denies: Pleuritic Chest Pain, Sputum, Wheezing Cardiovascular: Reports: Dyspnea on Exertion, PND, Edema. Denies: Chest Pain, Palpitations, Orthopnea, Lightheadedness Gastrointestinal: Reports: No Symptoms Genitourinary: Reports: Other (indwelling cath) Musculoskeletal: Reports: Back Pain Skin: Denies: Dryness Neurological: Reports: Pre-Existing Deficit, Difficulty Walking, Weakness, Gait Disturbance. Denies: Confusion, Dizziness Psychiatric: Denies: Confusion, Anxiety - Patient Data Vitals - Most Recent: Last Vital Signs Temp 97.7 F 02/08/19 06:46 Pulse 89 02/08/19 06:46 Resp 16 02/08/19 06:46 BP 127/75 02/08/19 06:46 Pulse Ox 95 02/08/19 06:46 Weight - Most Recent: 167 lb 6.4 oz I&O - Last 24 Hours: Intake & Output 02/07/19 02/08/19 02/08/19 22:59 06:59 14:59 Intake Total 440 100 Output Total 2100 1675 Balance -1660 -1575 Lab Results Last 24 Hours: Laboratory Results - last 24 hr 02/08/19 02/08/19 Range/Units 07:20 07:20 WBC 6.88 (5.00-10.00) 10^3/uL RBC 3.58 L (4.50-6.00) 10^6/uL Hgb 8.8 L (13.0-17.0) g/dL Hct 26.9 L (40.0-52.0) % MCV 75.1 L D (82.0-92.0) fL MCH 24.6 L (27.0-31.0) pg MCHC 32.7 (32.0-36.0) g/dL RDW 15.8 H (11.5-14.5) % Plt Count 258 (150-400) 10^3/uL MPV 10.1 (7.4-10.4) fL Immature Gran % (Auto) 0.1 (0.0-5.0) % Neut % (Auto) 66.5 (50.0-70.0) % Lymph % (Auto) 19.5 L (20.0-40.0) % [place] % (Auto) 10.8 H (2.0-8.0) % Eos % (Auto) 2.5 (1.0-3.0) % Baso % (Auto) 0.6 (0.0-1.0) % Immature Gran # (Auto) 0.01 (0.00-0.50) 10^3/uL Neut # (Auto) 4.58 (2.50-7.00) 10^3/uL Lymph # (Auto) 1.34 (1.00-4.00) 10^3/uL [place] # (Auto) 0.74 (0.10-0.80) 10^3/uL Eos # (Auto) 0.17 (0.10-0.30) 10^3/uL Baso # (Auto) 0.04 (0.00-0.10) 10^3/uL Sodium 131 L (136-145) mmol/L Potassium 3.8 (3.3-5.3) mmol/L Chloride 94 L (98-115) mmol/L Carbon Dioxide 30.1 (21.0-32.0) mmol/L Anion Gap 10.7 (5-15) mmol/L BUN 20 (6-25) mg/dL Creatinine 0.89 (0.51-1.17) mg/dL Est Cr Clr Drug Dosing 56.27 mL/min Estimated GFR (MDRD) > 60 mL/min Glucose 86 (75 - 99) mg/dL Calcium 8.8 (8.7-10.3) mg/dL Med Orders - Current: Current Medications Acetaminophen (Tylenol Arthritis Pain) 650 mg PO Q8H PRN PRN Reason: Pain/Fever Last Admin: 02/07/19 23:34 Dose: 650 mg Furosemide (Lasix) 40 mg IVPUSH BID [facility] Last Admin: 02/08/19 08:52 Dose: 40 mg Potassium Chloride (Klor-Con M20) 20 meq PO DAILY [facility] Last Admin: 02/08/19 08:52 Dose: 20 meq Sodium Chloride (Saline Flush) 10 ml FLUSH Q8HR PRN PRN Reason: keep vein open Last Admin: 02/07/19 14:46 Dose: 10 ml Discontinued Medications Furosemide (Lasix) 40 mg IVPUSH NOW ONE Stop: 02/07/19 14:27 Last Admin: 02/07/19 14:46 Dose: 40 mg Furosemide (Lasix) 20 mg PO DAILY CHIKIS - Exam Quality Assessment: No: Supplemental Oxygen General: Alert, Oriented Neck: Supple Lungs: Clear to Auscultation, Normal Respiratory Effort Cardiovascular: Regular Rate, Regular Rhythm, Murmurs GI/Abdominal Exam: Soft (Male) Exam: Deferred Extremities: Pedal Edema (Left > Right) Peripheral Pulses: 2+: Radial (R), Femoral (L) Skin: Moist, Other (Weeping ) Neurological: Normal Speech Psy/Mental Status: Alert, Labile Mood - Problem List Review Problem List Initiated/Reviewed/Updated: Yes - My Orders Last 24 Hours: My Active Orders 02/07/19 19:10 Resuscitation Status Routine 02/08/19 02:00 Furosemide [Lasix] 40 mg IVPUSH BID 02/08/19 09:21 Consult to Physical Therapy [PT Evaluation and Treatment] [CONS] Routine 02/08/19 Breakfast Low Sodium [Sodium Restricted Diet] [DIET] - Plan Plan:: History summary/pre-hospital course Yasir is a 88 year old male admitted by Callie ANDREW due to shortness of breath--seem to be worse on lying down, slowly getting worse over last several days to weeks. He also noticed approximately 5 pound weight gain in the past 2 weeks. In asking the past to weigh himself however he has done this inconsistently. Lives at home with his elderly spouse and does get checked on by siblings quite frequently. Does have a chronic indwelling Graham catheter due to urinary retention at one point he sustained a fall approximately one month ago that the daughter contributes to over diuresing Clinical workup/pertinent findings Weight gain ~# past 2 weeks CXR, no report, no able to view BNP 1610 Echo, none on file Update since admission, spoke with family last night, patient was made a DNR, [place] on telemetry, initially upon admission had several 10 beat runs of V. tach , strips were reviewed by me this morning further V. tach episodes however occasional PVC, 40 mg IV Lasix was given @0200 in am due to PND, diuresed well , (pt has current Graham) Wt down ~7lbs, O>I -3200 Neg Primary hospital problems Heart failure, clinical, symptom based NYHA III, no echo on file, EKG today, daily weights Anemia, microcytic, hypochromic, anisocytosis, EULALIA, on iron, guiac stools. Hypervolemia hyponatremia, hypotonic, likely CHF induced Disposition/overall plan, --Continue with inpatient status, meets criteria due to CHF and medication adjustments, and close telemetry monitoring --Reduce Lasix to 40 mg IV today --Initiate low-dose LUIS ALBERTO inhibitor, target dose 30 mg a day --Initiate low-dose carvedilol, target dose 25 mg twice a day --EKG before initiating beta kobi therapy --Anticipate influenza vaccination upon discharge --outpatient ECHO --DVT prophylaxis, TEDS/SCDs, withhold heparin until stool guiac --Delirium prophylaxis, Rozerum --PT consultation, --Possible SNF here at [facility] or LTC temporarily until patient can move in with daughter
[2019-02-08] MEDS: Lisinopril 5 MG Tab PO SCH (11:13)
[2019-02-08] MEDS: Carvedilol 6.25 MG Tab PO SCH (17:24)
[2019-02-08] MEDS ORDERED: Bisacodyl 5 MG Tab PO PRN (17:41)
[2019-02-09] MEDS: Acetaminophen 650 MG Tab.ER PO PRN (01:44)
[2019-02-09 07:52] LABS: ANION GAP 10.4 mmol/L (5-15); CHLORIDE,CL 93 mmol/L (98-115); SODIUM,NA 130 mmol/L (136-145)
[2019-02-09] MEDS: Carvedilol 6.25 MG Tab PO SCH ×2 (07:56→18:35)
[2019-02-09] MEDS: Potassium Chloride 20 MEQ Tab.ER PO SCH (09:30)
[2019-02-09] MEDS: Lisinopril 5 MG Tab PO SCH (09:32)
[2019-02-09] MEDS: Furosemide 40 MG/4 ML VIAL IVPUSH SCH (09:33)
--- NOTE | 2019-02-09 09:39 | PCM.PN ---
- General Info Date of Service: 02/09/19 Functional Status: Reports: Pain Controlled, Tolerating Diet, Urinating, New Symptoms (low blood pressure but no dizziness). Denies: Ambulating - Review of Systems General: Reports: Weakness. Denies: Fever, Night Sweats HEENT: Reports: No Symptoms Pulmonary: Denies: Sputum, Wheezing Cardiovascular: Reports: Edema. Denies: Chest Pain, Palpitations, Orthopnea, PND Gastrointestinal: Reports: No Symptoms Genitourinary: Reports: Other (Graham catheter) Musculoskeletal: Reports: Back Pain (chronic back pain) Skin: Denies: Bruising, Pruritis, Rash Neurological: Reports: Pre-Existing Deficit, Difficulty Walking, Weakness, Gait Disturbance. Denies: Dizziness, Tremors Psychiatric: Reports: No Symptoms - Patient Data Vitals - Most Recent: Last Vital Signs Temp 97.3 F 02/09/19 07:00 Pulse 76 02/09/19 07:56 Resp 16 02/09/19 07:00 BP 77/44 L 02/09/19 09:32 Pulse Ox 97 02/09/19 07:00 Weight - Most Recent: 165 lb I&O - Last 24 Hours: Intake & Output 02/08/19 02/09/19 02/09/19 22:59 06:59 14:59 Intake Total 300 200 Output Total 300 200 Balance 0 0 Lab Results Last 24 Hours: Laboratory Results - last 24 hr 02/09/19 02/09/19 Range/Units 07:15 07:15 Hgb 9.0 L (13.0-17.0) g/dL Sodium 130 L (136-145) mmol/L Potassium 3.5 (3.3-5.3) mmol/L Chloride 93 L (98-115) mmol/L Carbon Dioxide 30.1 (21.0-32.0) mmol/L Anion Gap 10.4 (5-15) mmol/L BUN 18 (6-25) mg/dL Creatinine 0.94 (0.51-1.17) mg/dL Est Cr Clr Drug Dosing 53.28 mL/min Estimated GFR (MDRD) > 60 mL/min Glucose 93 (75 - 99) mg/dL Calcium 8.7 (8.7-10.3) mg/dL [place] Results Last 24 Hours: Microbiology 02/09/19 07:15 Occult Blood - Final Stool / Feces - Stool, Formed Med Orders - Current: Current Medications Acetaminophen (Tylenol Arthritis Pain) 650 mg PO Q8H PRN PRN Reason: Pain/Fever Last Admin: 02/09/19 01:44 Dose: 650 mg Bisacodyl (Dulcolax) 5 - 10 mg PO ASDIRECTED PRN PRN Reason: Constipation Last Admin: 02/08/19 18:25 Dose: 5 mg Carvedilol (Coreg) 3.125 mg PO BIDMEALS [facility] Last Admin: 02/09/19 07:56 Dose: 3.125 mg Furosemide (Lasix) 40 mg IVPUSH DAILY [facility] Last Admin: 02/09/19 09:33 Dose: Not Given Lisinopril (Prinivil) 5 mg PO DAILY [facility] Last Admin: 02/09/19 09:32 Dose: Not Given Potassium Chloride (Klor-Con M20) 20 meq PO DAILY [facility] Last Admin: 02/09/19 09:30 Dose: 20 meq Ramelteon (Rozerem) 8 mg PO BEDTIME [facility] Last Admin: 02/08/19 20:33 Dose: 8 mg Sodium Chloride (Saline Flush) 10 ml FLUSH Q8HR PRN PRN Reason: keep vein open Last Admin: 02/07/19 14:46 Dose: 10 ml Discontinued Medications Furosemide (Lasix) 40 mg IVPUSH NOW ONE Stop: 02/07/19 14:27 Last Admin: 02/07/19 14:46 Dose: 40 mg Furosemide (Lasix) 20 mg PO DAILY [facility] Furosemide (Lasix) 40 mg IVPUSH BID [facility] Last Admin: 02/08/19 08:52 Dose: 40 mg - Exam Quality Assessment: No: Supplemental Oxygen, DVT Prophylaxis General: Alert, Oriented, Cooperative, No Acute Distress Neck: No JVD Lungs: Clear to Auscultation, Normal Respiratory Effort Cardiovascular: Regular Rate, Regular Rhythm, Murmurs. No: Irregular Rhythm, Bradycardia, Tachycardia GI/Abdominal Exam: Soft, Non-Tender Back Exam: No: CVA Tenderness (L) Extremities: Pedal Edema (pedal edema 1+ left worse than right. ) Peripheral Pulses: 2+: Radial (L), Radial (R) Psy/Mental Status: Alert, Normal Affect, Labile Mood - Problem List Review Problem List Initiated/Reviewed/Updated: Yes - My Orders Last 24 Hours: My Active Orders 02/08/19 09:21 Consult to Physical Therapy [PT Evaluation and Treatment] [CONS] Routine 02/08/19 10:40 EKG Documentation Completion [RC] ASDIRECTED 02/08/19 10:45 Furosemide [Lasix] 40 mg IVPUSH DAILY Lisinopril [Prinivil] 5 mg PO DAILY 02/08/19 17:41 Bisacodyl [Dulcolax] 5 - 10 mg PO ASDIRECTED PRN 02/08/19 18:00 Carvedilol [Coreg] 3.125 mg PO BIDMEALS 02/08/19 21:00 Ramelteon [Rozerem] 8 mg PO BEDTIME - Plan Plan:: History summary/pre-hospital course Yasir is a 88 year old male admitted by Callie ANDREW due to shortness of breath--seem to be worse on lying down, slowly getting worse over last several days to weeks. He also noticed approximately 5 pound weight gain in the past 2 weeks. In asking the past to weigh himself however he has done this inconsistently. Lives at home with his elderly spouse and does get checked on by siblings quite frequently. Does have a chronic indwelling Graham catheter due to urinary retention at one point he sustained a fall approximately one month ago that the daughter contributes to over diuresing Clinical workup/pertinent findings Weight gain ~5# past 2 weeks CXR, no report, no able to view BNP 1610 Echo, none on file Hospital course to date: February 07, spoke with family last night, patient was made a DNR, [place] on telemetry, initially upon admission had several 10 beat runs of V. tach, strips were reviewed by me this morning further V. tach episodes however occasional PVC, 40 mg IV Lasix was given @0200 in am due to PND, diuresed well, (pt has current Graham) Wt down ~7lbs, O>I -3200 Neg February 08, patient feels better today, slightly low BP sing LUIS ALBERTO inhibitor and beta kobi however asymptomatic. Lost 2 more pound2, (total wt loss 9lbs) output -650ml. EKG yesterday NSR, much less PVCs, no more V. tach. slept better since placed on [facility] Primary hospital problems Heart failure, clinical, symptom based NYHA III, no echo on file, EKG NSR, daily weights, hold Lasix today, started ACEI and low dose Coreg yesterday Anemia, microcytic, hypochromic, mild anisocytosis, EULALIA, on iron, guaic stools negative, add Vitamin C. Hypervolemia hyponatremia, hypotonic, CHF induced, anticipating this improving once more euvolemic Disposition/overall plan, --Continue with inpatient status, meets criteria due to CHF and medication adjustments, --hold Lasix today --reduce lisinopril to 2.5 mg (target dose over time 30 mg dose) --BP medication holding parameters (target dose 25 mg BID) --DC telemetry status --flu shot today, high dose, --outpatient ECHO --DVT prophylaxis, TEDS/SCDs, start LMWH now that stools neg for blood. --Delirium prophylaxis, [facility] --Anticipate placing patient in SNF [facility] tomorrow until patient can move in with daughter
[2019-02-09] MEDS: Enoxaparin 40 MG/0.4 ML Syringe SUBCUT SCH (11:55)
[2019-02-09] MEDS ORDERED: Potassium Chloride 20 MEQ Packet PO ONE (17:00)
[2019-02-09] MEDS: Sodium Chloride 0.9% 10 ML Syringe FLUSH PRN (22:23)
[2019-02-10 08:32] LABS: ANION GAP 12.2 mmol/L (5-15); CHLORIDE,CL 92 mmol/L (98-115); SODIUM,NA 128 mmol/L (136-145)
[2019-02-10] MEDS: Carvedilol 6.25 MG Tab PO SCH (08:35)
[2019-02-10] MEDS: Potassium Chloride 20 MEQ Tab.ER PO SCH (08:36)
[2019-02-10] MEDS ORDERED: Lisinopril 5 MG Tab PO SCH (09:00)
--- NOTE | 2019-02-10 09:02 | PCM.DCSUM1 ---
Discharge Summary - Hospital Course Diagnosis: Stroke: No - Discharge Data Discharge Date: 02/10/19 Discharge Disposition: DC/Tfer W/I Hosp To Swing 61 Condition: Fair - Referral to Home Health Primary Care Physician: Jean Kaur NP - Patient Summary/Data Consults: Consultations 02/08/19 09:21 Consult to Physical Therapy [PT Evaluation and Treatment] [CONS] Routine - Discharge Plan Home Medications: Home Meds Potassium Chloride [Klor-Con M20] 20 meq PO DAILY #60 tab.er 07/28/17 [Rx] Furosemide [Lasix] 20 mg PO DAILY 12/02/18 [History] Ketoconazole [Nizoral 2% Crm] 1 applic TOP DAILY PRN 12/02/18 [History] Acetaminophen [Tylenol Arthritis] 650 mg PO Q8H PRN 02/07/19 [History] tiZANidine [Zanaflex] 4 mg PO BEDTIME PRN 02/07/19 [History] - Discharge Summary/Plan Comment DC Time >30 min.: Yes Discharge Summary/Plan Comment: Final diagnosis Impaired functional mobility Heart failure, Anemia, Hypervolemia hyponatremia History summary 88 year old male admitted by Callie ANDREW due to shortness of breath--seem to be worse on lying down, slowly getting worse over last several days to weeks. He also noticed approximately 5 pound weight gain in the past 2 weeks. patient has not been quite compliant on weighing himself. Lives at home with his elderly spouse and does get checked on by siblings quite frequently. Does have a chronic indwelling Graham catheter due to urinary retention at one point he sustained a fall approximately one month ago that the daughter contributes to over diuresing. he was mainly admitted for diuresing. Acute care hospital course patient's hospital course went fairly well liver he did sustain low BP upon initiating low-dose LUIS ALBERTO inhibitor and beta kobi therapy. he lost approximately 7 pounds, his lungs perry and he had less edema in his legs. did have a BNP of 1610 on admission--that seem to correlate with his respiratory symptoms and his his hypervolemic state. day 1 patient was made a DNR, he remained on telemetry, initially upon admission had several 10-beat runs of V. tach, strips were reviewed by me and although seems slightly narrow, morphological was consistent with V. tach. upon initiating beta kobi therapy and diuretic therapy he no longer had V. tach. 40 mg IV Lasix was given @0200 in am due to PND, diuresed well. day 2 patient felt better, slightly low BP since LUIS ALBERTO inhibitor and beta kobi however asymptomatic. Lost 2 more pound, (total wt loss 9lbs) output -650ml. EKG y NSR, much less PVCs, no more V. tach. slept better since placed on Rozerum. physical therapy evaluated the patient and was determined he has significant decrease in functional mobility and recommended swing bed therapy. is telemetry was removed, held lasix 2/2 Hypotension, reduced lisinopril to 2.5 mg . Flu shot was given, started LMWH once his stools returned back negative. Stop date placed until more functional mobility. disposition; Patient will therapy here at [facility] due to significant decrease in his functional mobility. Plans are for patient to be discharged eventually and move in with his daughter - General Info Functional Status: Reports: Pain Controlled - Review of Systems General: Reports: Weakness, Fatigue, Malaise. Denies: Night Sweats Pulmonary: Reports: No Symptoms Cardiovascular: Reports: Edema Gastrointestinal: Reports: No Symptoms Musculoskeletal: Reports: Back Pain Skin: Reports: Pruritis Neurological: Reports: Pre-Existing Deficit, Difficulty Walking, Weakness, Gait Disturbance. Denies: Confusion Psychiatric: Reports: No Symptoms - Patient Data Vitals - Most Recent: Last Vital Signs Temp 97.8 F 02/10/19 07:00 Pulse 83 02/10/19 08:35 Resp 20 02/10/19 07:00 BP 105/67 02/10/19 08:35 Pulse Ox 97 02/10/19 07:00 Weight - Most Recent: 165 lb I&O - Last 24 hours: Intake & Output 02/09/19 02/10/19 02/10/19 22:59 06:59 14:59 Intake Total 300 50 Output Total 200 300 Balance 100 -250 Lab Results - Last 24 hrs: Laboratory Results - last 24 hr 02/10/19 02/10/19 Range/Units 08:00 08:00 Hgb 8.4 L (13.0-17.0) g/dL Sodium 128 L (136-145) mmol/L Potassium 4.0 (3.3-5.3) mmol/L Chloride 92 L (98-115) mmol/L Carbon Dioxide 27.8 (21.0-32.0) mmol/L Anion Gap 12.2 (5-15) mmol/L BUN 13 (6-25) mg/dL Creatinine 0.81 (0.51-1.17) mg/dL Est Cr Clr Drug Dosing 61.83 mL/min Estimated GFR (MDRD) > 60 mL/min Glucose 90 (75 - 99) mg/dL Calcium 8.3 L (8.7-10.3) mg/dL [facility]I Results - Last 24 hrs: Microbiology 02/09/19 07:15 Occult Blood - Final Stool / Feces - Stool, Formed Med Orders - Current: Current Medications Acetaminophen (Tylenol Arthritis Pain) 650 mg PO Q8H PRN PRN Reason: Pain/Fever Last Admin: 02/09/19 01:44 Dose: 650 mg Bisacodyl (Dulcolax) 5 - 10 mg PO ASDIRECTED PRN PRN Reason: Constipation Last Admin: 02/08/19 18:25 Dose: 5 mg Carvedilol (Coreg) 3.125 mg PO BIDMEALS [facility] Last Admin: 02/10/19 08:35 Dose: 3.125 mg Enoxaparin Sodium (Lovenox) 40 mg SUBCUT Q24H [facility] Last Admin: 02/09/19 11:55 Dose: 40 mg Lisinopril (Prinivil) 2.5 mg PO DAILY [facility] Last Admin: 02/10/19 08:34 Dose: 2.5 mg Potassium Chloride (Klor-Con M20) 20 meq PO DAILY [facility] Last Admin: 02/10/19 08:36 Dose: 20 meq Ramelteon (Rozerem) 8 mg PO BEDTIME [facility] Last Admin: 02/09/19 22:20 Dose: 8 mg Sodium Chloride (Saline Flush) 10 ml FLUSH Q8HR PRN PRN Reason: keep vein open Last Admin: 02/09/19 22:23 Dose: 10 ml Discontinued Medications Furosemide (Lasix) 40 mg IVPUSH NOW ONE Stop: 02/07/19 14:27 Last Admin: 02/07/19 14:46 Dose: 40 mg Furosemide (Lasix) 20 mg PO DAILY [facility] Furosemide (Lasix) 40 mg IVPUSH BID [facility] Last Admin: 02/08/19 08:52 Dose: 40 mg Furosemide (Lasix) 40 mg IVPUSH DAILY [facility] Last Admin: 02/09/19 09:33 Dose: Not Given Influenza Virus Vaccine (Fluzone High-Dose 2019-20 Syringe) 180 mcg IM .ONCE ONE Stop: 02/09/19 09:57 Last Admin: 02/09/19 11:56 Dose: 180 mcg Lisinopril (Prinivil) 5 mg PO DAILY [facility] Last Admin: 02/09/19 09:32 Dose: Not Given Potassium Chloride (Klor-Con) 20 meq PO ONETIME ONE Stop: 02/09/19 17:01 Last Admin: 02/09/19 16:39 Dose: 20 meq - Exam Quality Assessment: Denies: Supplemental Oxygen General: Reports: Alert, Oriented Neck: Reports: Supple Lungs: Reports: Clear to Auscultation, Normal Respiratory Effort Cardiovascular: Reports: Murmurs GI/Abdominal Exam: Soft Extremities: Pedal Edema (1+ pedal edema left lower extremity) Neurological: Reports: Cranial Nerves Intact Psy/Mental Status: Reports: Alert, Normal Affect, Normal Mood
[2019-02-10] MEDS: Enoxaparin 40 MG/0.4 ML Syringe SUBCUT SCH (09:44)
== END 2019-02-10 08:53 | disposition swing bed (61) | DRG 292 ==
LOC: KA.MS 13:08 → UNDOADMIN 13:08
PROVIDERS: ADMIT Physician Assistant Medical; ATTEND Nurse Practitioner Family
DX: I50.9 Heart failure, unspecified (principal); I47.2 Ventricular tachycardia; E87.1 Hypo-osmolality and hyponatremia; Z66 Do not resuscitate; I95.9 Hypotension, unspecified; Z96.0 Presence of urogenital implants; D50.9 Iron deficiency anemia, unspecified; N40.0 Benign prostatic hyperplasia without lower urinary tract symptoms; Z79.899 Other long term (current) drug therapy; Z87.440 Personal history of urinary (tract) infections; I25.2 Old myocardial infarction; Z90.49 Acquired absence of other specified parts of digestive tract; Z23 Encounter for immunization; Z74.09 Other reduced mobility
CPT/HCPCS: 36415; 80048; 82270; 85018; 85025; 90662; 93005; 97110-GP; 97162-GP; A9270-GY; J1650; J1940

== ENCOUNTER 2019-02-10 08:27 | Inpatient (IN) | payer MEDICARE, OTHER ==
[2019-02-10] MEDS ORDERED: Bisacodyl 5 MG Tab PO PRN (08:53)
[2019-02-10] MEDS ORDERED: Sodium Chloride 0.9% 10 ML Syringe FLUSH PRN (08:53)
--- NOTE | 2019-02-10 09:37 | PCM.HP.2 ---
H&P History of Present Illness - General Date of Service: 02/10/19 Admit Problem/Dx: Admission Diagnosis/Problem Admission Diagnosis/Problem CHF, Congestive heart failure Source of Information: Patient, Family, Old Records, RN - Related Data Allergies/Adverse Reactions: Allergies Allergy/AdvReac Type Severity Reaction Status Date / Time No Known Allergies Allergy Verified 02/11/19 09:38 Home Medications: Home Meds Potassium Chloride [Klor-Con M20] 20 meq PO DAILY #60 tab.er 07/28/17 [Rx] Furosemide [Lasix] 20 mg PO DAILY 12/02/18 [History] Ketoconazole [Nizoral 2% Crm] 1 applic TOP DAILY PRN 12/02/18 [History] Acetaminophen [Tylenol Arthritis] 650 mg PO Q8H PRN 02/07/19 [History] tiZANidine [Zanaflex] 4 mg PO BEDTIME PRN 02/07/19 [History] Ascorbic Acid/Ascorbate Sodium [Vitamin C 250 mg Tablet Chew] 2 tab PO DAILY 08/26 [History] Cholecalciferol (Vitamin D3) [Vitamin D3] 5,000 unit PO DAILY 02/10/19 [History] Patient's Own Medication [Ptom] 1 applicful SL DAILY 02/10/19 [History] Vit A/Vit C/Vit E/Zinc/Copper [Preservision] 1 tab PO DAILY 02/10/19 [History] Past Medical History HEENT History: Reports: Hard of Hearing, Impaired Vision Cardiovascular History: Reports: Heart Failure, [place] Respiratory History: Reports: None Gastrointestinal History: Reports: Hemorrhoids, Other (See Below) Other Gastrointestinal History: ileus in 2018 Genitourinary History: Reports: BPH, Retention, Urinary, Other (See Below) Other Genitourinary History: Has ruiz replaced monthly Musculoskeletal History: Reports: None Neurological History: Reports: None Psychiatric History: Reports: Dementia Endocrine/Metabolic History: Reports: None Hematologic History: Reports: None Immunologic History: Reports: None Oncologic (Cancer) History: Reports: Malignant Melanoma Dermatologic History: Reports: Melanoma - Infectious Disease History Infectious Disease History: Reports: None - Past Surgical History Head Surgeries/Procedures: Reports: None HEENT Surgical History: Reports: Cataract Surgery Cardiovascular Surgical History: Reports: None Respiratory Surgical History: Reports: None GI Surgical History: Reports: Appendectomy, Colonoscopy, Hernia Repair/Other Male Surgical History: Reports: None 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 Denies: Fever, Night Sweats, Decreased Appetite HEENT: Reports: No Symptoms Pulmonary: Reports: No Symptoms Cardiovascular: Reports: Edema. Denies: PND, Blood Pressure Problem Gastrointestinal: Denies: Abdominal Pain, Constipation Genitourinary: Reports: Other (Ruiz catheter) Musculoskeletal: Reports: Back Pain. Denies: Neck Pain, Shoulder Pain, Leg Pain , Joint Swelling Psychiatric: Denies: Confusion, Agitation Hematologic/Lymphatic: Reports: Anemia Immunologic: Reports: No Symptoms Exam - Exam Exam: See Below - Exam Quality Assessment: DVT Prophylaxis. No: Supplemental Oxygen, Skin Breakdown General: Alert, Oriented, Cooperative HEENT: Mucosa Moist & [place], Nares Patent Neck: Supple Lungs: Clear to Auscultation, Normal Respiratory Effort Cardiovascular: Regular Rate, Regular Rhythm, Systolic Murmur GI/Abdominal Exam: Normal Bowel Sounds, Soft (Male) Exam: Deferred Rectal (Males) Exam: Deferred Back Exam: No: CVA Tenderness (L), CVA Tenderness (R) Extremities: Pedal Edema (1+ pedal edema left lower extremity) Peripheral Pulses: 2+: Radial (L), Radial (R) Skin: Other (scratches left no weeping) Neurological: Normal Speech, Normal Tone, Sensation Intact Neuro Extensive - Mental Status: Alert, Oriented x3 Neuro Extensive - Motor, Sensory, Reflexes: CN II-XII Intact Psychiatric: Alert, Normal Affect, Normal Mood - Patient Data Result Diagrams: 02/18/19 10:28 02/18/19 10:28 Problem List Initiated/Reviewed/Updated: Yes Orders Last 24hrs: Active Orders 24 hr Category Date Time Status Admission Status [Patient Status] [ADT] Routine ADT 02/10/19 08:53 Active Activity as Tolerated [RC] .Routine Care 02/10/19 08:53 Active Communication Order [RC] BID Care 02/10/19 08:53 Active Daily Weight [Height and Weight] [RC] DAILY Care 02/10/19 08:53 Active Peripheral IV Care [RC] . DIRECTED Care 02/10/19 08:53 Active Vital Signs [RC] Q4H Care 02/10/19 08:53 Active Consult to Physical Therapy [PT Evaluation and Cons 02/10/19 08:53 Active Treatment] [CONS] Routine Low Sodium [Sodium Restricted Diet] [DIET] Diet 02/10/19 Breakfast Active Acetaminophen [Tylenol Arthritis Pain] Med 02/10/19 08:53 Ordered 650 mg PO Q8H PRN Bisacodyl [Dulcolax] Med 02/10/19 08:53 Ordered 5 - 10 mg PO ASDIRECTED PRN Carvedilol [Coreg] Med 02/10/19 18:00 Ordered 3.125 mg PO BIDMEALS Enoxaparin [Lovenox] Med 02/10/19 10:00 Ordered 40 mg SUBCUT Q24H Lisinopril [Prinivil] Med 02/10/19 09:00 Ordered 2.5 mg PO DAILY Potassium Chloride [Klor-Con M20] Med 02/10/19 09:00 Ordered 20 meq PO DAILY Ramelteon [Rozerem] Med 02/10/19 21:00 Ordered 8 mg PO BEDTIME Sodium Chloride 0.9% [Saline Flush] Med 02/10/19 08:53 Ordered 10 ml FLUSH Q8HR PRN Medication Orders Acetaminophen (Tylenol Arthritis Pain) 650 mg PO Q8H PRN PRN Reason: Pain/Fever Bisacodyl (Dulcolax) 5 - 10 mg PO ASDIRECTED PRN PRN Reason: Constipation Carvedilol (Coreg) 3.125 mg PO BIDMEALS [facility] Enoxaparin Sodium (Lovenox) 40 mg SUBCUT Q24H [facility] Lisinopril (Prinivil) 2.5 mg PO DAILY [facility] Potassium Chloride (Klor-Con M20) 20 meq PO DAILY [facility] Ramelteon (Rozerem) 8 mg PO BEDTIME [facility] Sodium Chloride (Saline Flush) 10 ml FLUSH Q8HR PRN PRN Reason: keep vein open Assessment/Plan Comment:: History of present Illness Yasir is a 88 year old male was initially admitted by Callie ANDREW due to shortness of breath--seem to be worse on lying down, slowly getting worse over last several days to weeks. He also noticed approximately 5 pound weight gain in the past 2 weeks. In asking the past to weigh himself however he has done this inconsistently. Lives at home with his elderly spouse and does get checked on by siblings quite frequently. Does have a chronic indwelling Ruiz catheter due to urinary retention at one point he sustained a fall approximately one month ago that the daughter contributes to over diuresing. his clinical workup included a weight gain of ~5# past 2 weeks, BNP 1610. He was admitted mainly for diuresing Acute care hospital course patient's hospital course went fairly well liver he did sustain low BP upon initiating low-dose LUIS ALBERTO inhibitor and beta kobi therapy. he lost approximately 7 pounds, his lungs perry and he had less edema in his legs. did have a BNP of 1610 on admission--that seem to correlate with his respiratory symptoms and his his hypervolemic state. day 1 patient was made a DNR, he remained on telemetry, initially upon admission had several 10-beat runs of V. tach, strips were reviewed by me and although seems slightly narrow, morphological was consistent with V. tach. upon initiating beta kobi therapy and diuretic therapy he no longer had V. tach. 40 mg IV Lasix was given @0200 in am due to PND, diuresed well. day 2 patient felt better, slightly low BP since LUIS ALBERTO inhibitor and beta kobi however asymptomatic. Lost 2 more pound, (total wt loss 9lbs) output -650ml. EKG y NSR, much less PVCs, no more V. tach. slept better since placed on Rozerum. physical therapy evaluated the patient and was determined he has significant decrease in functional mobility and recommended swing bed therapy. is telemetry was removed, held lasix 2/2 Hypotension, reduced lisinopril to 2.5 mg . Flu shot was given, started LMWH once his stools returned back negative. Stop date placed until more functional mobility. Primary SNF problems --Impaired functional mobility --Heart failure, clinical, symptom based appears NYHA III, no echo on file, EKG NSR, daily weights, will add 30mg lasis PO daily started ACEI and low dose Coreg in hopes and reaching target dose --Anemia, microcytic, hypochromic, mild anisocytosis, EULALIA, on iron, guaic stools negative, add Vitamin C. --Hypervolemia hyponatremia, hypotonic, CHF induced, anticipating this improving once more euvolemic Health maintenance --DVT prophylaxis, LISA due to edema, STANISLAV likely adequate as fair pedal pulse, continue LMWH for now, stopped date placed --Received influenza vaccination February 09 --Delirium prophylaxis, Rozerum --Anticipate SNF [facility] until patient can move in with daughter - Mortality Measure Prognosis:: Good
[2019-02-10] MEDS: Enoxaparin 40 MG/0.4 ML Syringe SUBCUT SCH (11:03)
[2019-02-10] MEDS: Lisinopril 5 MG Tab PO SCH (11:03)
[2019-02-10] MEDS ORDERED: [UNRECOGNIZED DRUG - OTHER] SL SCH (14:00)
[2019-02-10] MEDS: Carvedilol 6.25 MG Tab PO SCH (17:25)
[2019-02-11] MEDS: Acetaminophen 650 MG Tab.ER PO PRN (06:20)
[2019-02-11] MEDS: Potassium Chloride 20 MEQ Tab.ER PO SCH (08:32)
[2019-02-11] MEDS: [UNRECOGNIZED DRUG - OTHER] SL SCH (08:32)
[2019-02-11] MEDS: Lisinopril 5 MG Tab PO SCH (08:32)
[2019-02-11] MEDS: Carvedilol 6.25 MG Tab PO SCH ×2 (08:33→18:23)
[2019-02-11] MEDS: Enoxaparin 40 MG/0.4 ML Syringe SUBCUT SCH (10:33)
[2019-02-11] MEDS: Furosemide 20 MG Tab PO SCH (12:07)
[2019-02-11] MEDS: Lutein/Minerals/Vitamins A, C & E Tab PO SCH (12:08)
[2019-02-11] MEDS: Cholecalciferol (Vitamin D3) 25 MCG Tab PO SCH (12:08)
[2019-02-11] MEDS: Ascorbic Acid 500 MG Tab PO SCH (12:08)
[2019-02-12] MEDS: Ascorbic Acid 500 MG Tab PO SCH (08:36)
[2019-02-12] MEDS: Potassium Chloride 20 MEQ Tab.ER PO SCH (08:36)
[2019-02-12] MEDS: [UNRECOGNIZED DRUG - OTHER] SL SCH (08:36)
[2019-02-12] MEDS: Cholecalciferol (Vitamin D3) 25 MCG Tab PO SCH (08:36)
[2019-02-12] MEDS: Furosemide 20 MG Tab PO SCH (08:36)
[2019-02-12] MEDS: Lutein/Minerals/Vitamins A, C & E Tab PO SCH (08:37)
[2019-02-12] MEDS: Lisinopril 5 MG Tab PO SCH (08:37)
[2019-02-12] MEDS: Carvedilol 6.25 MG Tab PO SCH ×2 (08:37→17:04)
[2019-02-12] MEDS: Enoxaparin 40 MG/0.4 ML Syringe SUBCUT SCH (10:56)
[2019-02-13] MEDS: Carvedilol 6.25 MG Tab PO SCH ×2 (08:29→18:07)
[2019-02-13] MEDS: Furosemide 20 MG Tab PO SCH (08:30)
[2019-02-13] MEDS: Cholecalciferol (Vitamin D3) 25 MCG Tab PO SCH (08:31)
[2019-02-13] MEDS: Lisinopril 5 MG Tab PO SCH (08:31)
[2019-02-13] MEDS: Ascorbic Acid 500 MG Tab PO SCH (08:32)
[2019-02-13] MEDS: Potassium Chloride 20 MEQ Tab.ER PO SCH (08:32)
[2019-02-13] MEDS: [UNRECOGNIZED DRUG - OTHER] SL SCH (08:33)
[2019-02-13] MEDS: Lutein/Minerals/Vitamins A, C & E Tab PO SCH (08:33)
[2019-02-13] MEDS: Enoxaparin 40 MG/0.4 ML Syringe SUBCUT SCH (09:30)
--- NOTE | 2019-02-13 09:57 | PCM.PN ---
- General Info Date of Service: 02/13/19 Functional Status: Reports: Pain Controlled, Tolerating Diet, New Symptoms ( slightly more edeer extremities). Denies: Ambulating - Review of Systems General: Reports: Weakness, Fatigue, Malaise HEENT: Reports: No Symptoms Pulmonary: Reports: No Symptoms Cardiovascular: Reports: No Symptoms Gastrointestinal: Reports: No Symptoms Genitourinary: Reports: Other (indwelling catheter) Musculoskeletal: Reports: Back Pain (chronic back brittanie) Skin: Reports: Pallor Neurological: Reports: Confusion (daughter stat), Difficulty Walking, Weakness, Gait Disturbance Psychiatric: Reports: Agitation - Patient Data Vitals - Most Recent: Last Vital Signs Temp 97.5 F 02/13/19 06:43 Pulse 61 02/13/19 08:29 Resp 16 02/13/19 06:43 BP 116/72 02/13/19 08:31 Pulse Ox 97 02/13/19 06:43 Weight - Most Recent: 171 lb 11.2 oz I&O - Last 24 Hours: Intake & Output 02/12/19 02/13/19 02/13/19 22:59 06:59 14:59 Intake Total 100 350 Output Total 250 175 Balance -150 175 Med Orders - Current: Current Medications Acetaminophen (Tylenol Arthritis Pain) 650 mg PO Q8H PRN PRN Reason: Pain/Fever Last Admin: 02/11/19 06:20 Dose: 650 mg Ascorbic Acid (Vitamin C) 500 mg PO DAILY [facility] Last Admin: 02/13/19 08:32 Dose: 500 mg Bisacodyl (Dulcolax) 5 - 10 mg PO ASDIRECTED PRN PRN Reason: Constipation Carvedilol (Coreg) 3.125 mg PO BIDMEALS [facility] Last Admin: 02/13/19 08:29 Dose: 3.125 mg Cholecalciferol (Vitamin D3) 50 mcg PO DAILY [facility] Last Admin: 02/13/19 08:31 Dose: 50 mcg Enoxaparin Sodium (Lovenox) 40 mg SUBCUT Q24H [facility] Last Admin: 02/13/19 09:30 Dose: 40 mg Furosemide (Lasix) 30 mg PO DAILY [facility] Last Admin: 02/13/19 08:30 Dose: 30 mg Lisinopril (Prinivil) 2.5 mg PO DAILY [facility] Last Admin: 02/13/19 08:31 Dose: 2.5 mg Multivitamins/Minerals (Ocuvite) 1 each PO DAILY [facility] Last Admin: 02/13/19 08:33 Dose: 1 each Iron Bestrong - Ptom 1 each SL DAILY [facility] Last Admin: 02/13/19 08:33 Dose: 1 each Potassium Chloride (Klor-Con M20) 20 meq PO DAILY [facility] Last Admin: 02/13/19 08:32 Dose: 20 meq Ramelteon (Rozerem) 8 mg PO BEDTIME [facility] Last Admin: 02/12/19 20:11 Dose: 8 mg Discontinued Medications Iron Bestrong - Ptom 1 each SL DAILY [facility] Sodium Chloride (Saline Flush) 10 ml FLUSH Q8HR PRN PRN Reason: keep vein open Last Admin: 02/11/19 08:32 Dose: 10 ml - Exam Quality Assessment: DVT Prophylaxis. No: Supplemental Oxygen General: Alert, Oriented Lungs: Clear to Auscultation, Normal Respiratory Effort Cardiovascular: Regular Rate, Regular Rhythm GI/Abdominal Exam: Soft Extremities: Pedal Edema (2+ pitting edema bilateral lower extremities) Neurological: Normal Speech, Normal Tone, Sensation Intact Psy/Mental Status: Alert, Normal Affect, Normal Mood - Problem List Review Problem List Initiated/Reviewed/Updated: Yes - Plan Plan:: History of present Illness Yasir is a 88 year old male was initially admitted by Callie ANDREW due to shortness of breath--seem to be worse on lying down, slowly getting worse over last several days to weeks. He also noticed approximately 5 pound weight gain in the past 2 weeks. In asking the past to weigh himself however he has done this inconsistently. Lives at home with his elderly spouse and does get checked on by siblings quite frequently. Does have a chronic indwelling Graham catheter due to urinary retention at one point he sustained a fall approximately one month ago that the daughter contributes to over diuresing. his clinical workup included a weight gain of ~5# past 2 weeks, BNP 1610. He was admitted mainly for diuresing Acute care hospital course patient's hospital course went fairly well liver he did sustain low BP upon initiating low-dose MIGUELITO inhibitor and beta kobi therapy. he lost approximately 7 pounds, his lungs perry and he had less edema in his legs. did have a BNP of 1610 on admission--that seem to correlate with his respiratory symptoms and his his hypervolemic state. day 1 patient was made a DNR, he remained on telemetry, initially upon admission had several 10-beat runs of V. tach, strips were reviewed by me and although seems slightly narrow, morphological was consistent with V. tach. upon initiating beta kobi therapy and diuretic therapy he no longer had V. tach. 40 mg IV Lasix was given @0200 in am due to PND, diuresed well. day 2 patient felt better, slightly low BP since MIGUELITO inhibitor and beta kobi however asymptomatic. Lost 2 more pound, (total wt loss 9lbs) output -650ml. EKG y NSR, much less PVCs, no more V. tach. slept better since placed on Rozerum. physical therapy evaluated the patient and was determined he has significant decrease in functional mobility and recommended swing bed therapy. is telemetry was removed, held lasix 2/2 Hypotension, reduced lisinopril to 2.5 mg . Flu shot was given, started LMWH once his stools returned back negative. Stop date placed until more functional mobility. Primary SNF problems --Impaired functional mobility, quite significant, --Disuse edema, BLE, Miguelito bandages, ankle pumps, medication ordered to keep BLE elevat --Heart failure, clinical, symptom based appears NYHA III, no echo on file, EKG NSR, daily weights, placed on 30mg lasix PO daily started ACEI and low dose Coreg in hopes in reaching target dose --Anemia, microcytic, hypochromic, mild anisocytosis, EULALIA, on iron, guaic stools negative, added Vitamin C. --Hypervolemia hyponatremia, hypotonic, CHF induced, anticipating this improving once more euvolemic, BMP in am Health maintenance --DVT prophylaxis, MIGUELITO wrapes due to disuse edema, STANISLAV likely adequate as fair pedal pulse, continue LMWH for now, stopped date placed --Received influenza vaccination February 09 --Delirium prophylaxis, Rozerum --Anticipate SNF [facility] until patient can move in with daughter, isit with PT likely could qualify for one more week. --Medication will replace to keep BLE elevate while sitting and encourage ankle pumps
[2019-02-14 07:55] LABS: ANION GAP 11.7 mmol/L (5-15); SODIUM,NA 122 mmol/L (136-145)
[2019-02-14 08:17] LABS: CHLORIDE,CL 88 mmol/L (98-115)
[2019-02-14] MEDS: Carvedilol 6.25 MG Tab PO SCH ×2 (08:25→18:08)
[2019-02-14] MEDS: Ascorbic Acid 500 MG Tab PO SCH (08:26)
[2019-02-14] MEDS: Potassium Chloride 20 MEQ Tab.ER PO SCH (08:26)
[2019-02-14] MEDS: Cholecalciferol (Vitamin D3) 25 MCG Tab PO SCH (08:29)
[2019-02-14] MEDS: Furosemide 20 MG Tab PO SCH (08:29)
[2019-02-14] MEDS: Lutein/Minerals/Vitamins A, C & E Tab PO SCH (08:30)
[2019-02-14] MEDS: Lisinopril 5 MG Tab PO SCH (08:30)
[2019-02-14] MEDS: [UNRECOGNIZED DRUG - OTHER] SL SCH (08:31)
[2019-02-14] MEDS: Enoxaparin 40 MG/0.4 ML Syringe SUBCUT SCH (11:29)
[2019-02-14] MEDS: Acetaminophen 650 MG Tab.ER PO PRN (22:27)
[2019-02-15] MEDS: Ascorbic Acid 500 MG Tab PO SCH (08:51)
[2019-02-15] MEDS: Carvedilol 6.25 MG Tab PO SCH ×2 (08:51→17:43)
[2019-02-15] MEDS: Potassium Chloride 20 MEQ Tab.ER PO SCH (08:51)
[2019-02-15] MEDS: Lutein/Minerals/Vitamins A, C & E Tab PO SCH (08:53)
[2019-02-15] MEDS: Furosemide 20 MG Tab PO SCH (08:53)
[2019-02-15] MEDS: Lisinopril 5 MG Tab PO SCH (08:54)
[2019-02-15] MEDS: Cholecalciferol (Vitamin D3) 25 MCG Tab PO SCH (08:55)
[2019-02-15] MEDS: [UNRECOGNIZED DRUG - OTHER] SL SCH (09:01)
[2019-02-15] MEDS: Enoxaparin 40 MG/0.4 ML Syringe SUBCUT SCH (09:02)
[2019-02-15] MEDS: Acetaminophen 650 MG Tab.ER PO PRN (15:48)
[2019-02-15] MEDS ORDERED: Furosemide 40 MG Tab PO ONE (16:00)
[2019-02-15] MEDS ORDERED: Furosemide 40 MG/4 ML VIAL IVPUSH ONE (16:00)
[2019-02-15] MEDS: D MANNOSE PO SCH (21:19)
[2019-02-16] MEDS: Lutein/Minerals/Vitamins A, C & E Tab PO SCH (09:22)
[2019-02-16] MEDS: Furosemide 20 MG Tab PO SCH (09:22)
[2019-02-16] MEDS: Carvedilol 6.25 MG Tab PO SCH ×2 (09:23→17:44)
[2019-02-16] MEDS: Ascorbic Acid 500 MG Tab PO SCH (09:23)
[2019-02-16] MEDS: Cholecalciferol (Vitamin D3) 25 MCG Tab PO SCH (09:23)
[2019-02-16] MEDS: Potassium Chloride 20 MEQ Tab.ER PO SCH (09:24)
[2019-02-16] MEDS: Lisinopril 5 MG Tab PO SCH (09:25)
[2019-02-16] MEDS: [UNRECOGNIZED DRUG - OTHER] SL SCH (09:26)
[2019-02-16] MEDS: [UNRECOGNIZED DRUG - OTHER] PO SCH (09:27)
[2019-02-16] MEDS: D MANNOSE PO SCH ×2 (09:27→20:03)
[2019-02-16] MEDS ORDERED: Magnesium Citrate Solution 296 ML Bottle PO ONE (10:55)
[2019-02-16] MEDS: Acetaminophen 650 MG Tab.ER PO PRN (11:44)
[2019-02-17] MEDS: Simethicone 80 MG Tab.Chew PO PRN ×2 (06:12→21:40)
[2019-02-17 08:17] LABS: SODIUM,NA 125 mmol/L (136-145)
[2019-02-17 08:26] LABS: CHLORIDE,CL 88 mmol/L (98-115)
[2019-02-17] MEDS: Furosemide 20 MG Tab PO SCH (08:26)
[2019-02-17] MEDS: Lutein/Minerals/Vitamins A, C & E Tab PO SCH (08:26)
[2019-02-17] MEDS: Potassium Chloride 20 MEQ Tab.ER PO SCH (08:26)
[2019-02-17] MEDS: Cholecalciferol (Vitamin D3) 25 MCG Tab PO SCH (08:27)
[2019-02-17] MEDS: Lisinopril 5 MG Tab PO SCH (08:27)
[2019-02-17] MEDS: Carvedilol 6.25 MG Tab PO SCH (08:28)
[2019-02-17] MEDS: Ascorbic Acid 500 MG Tab PO SCH (08:28)
[2019-02-17] MEDS: [UNRECOGNIZED DRUG - OTHER] PO SCH (08:30)
[2019-02-17] MEDS: D MANNOSE PO SCH ×2 (08:30→21:38)
[2019-02-17] MEDS: [UNRECOGNIZED DRUG - OTHER] SL SCH (08:31)
[2019-02-17] MEDS ORDERED: Furosemide 40 MG Tab PO ONE (16:00)
[2019-02-18] MEDS: Acetaminophen 650 MG Tab.ER PO PRN (00:33)
[2019-02-18] MEDS: D MANNOSE PO SCH ×2 (00:44→09:10)
[2019-02-18] MEDS: Furosemide 20 MG Tab PO SCH (09:08)
[2019-02-18] MEDS: Lisinopril 5 MG Tab PO SCH (09:08)
[2019-02-18] MEDS: Ascorbic Acid 500 MG Tab PO SCH (09:09)
[2019-02-18] MEDS: Potassium Chloride 20 MEQ Tab.ER PO SCH (09:09)
[2019-02-18] MEDS: Cholecalciferol (Vitamin D3) 25 MCG Tab PO SCH (09:09)
[2019-02-18] MEDS: Lutein/Minerals/Vitamins A, C & E Tab PO SCH (09:10)
[2019-02-18] MEDS: [UNRECOGNIZED DRUG - OTHER] PO SCH (09:10)
[2019-02-18] MEDS: [UNRECOGNIZED DRUG - OTHER] SL SCH (09:11)
[2019-02-18 10:57] LABS: ANION GAP 15.2 mmol/L (5-15); SODIUM,NA 122 mmol/L (136-145)
[2019-02-18 10:59] LABS: CHLORIDE,CL 86 mmol/L (98-115)
[2019-02-18] MEDS ORDERED: Iopamidol 755 Mg/ML 100 ML Bottle IV ONE (11:15)
[2019-02-18] MEDS ORDERED: Sodium Chloride 0.9% 50 ML IV SCH (11:15)
--- NOTE | 2019-02-18 13:05 | CT ---
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 Question is raised if there is an intrinsic lesion of the colon that would be better identified with colonoscopy. There is concern for early pneumatosis involving the cecum Report was called at the time of the exam. There is no free air or free fluid. Hepatic cysts are stable. There are extensive atheromatous calcifications There is no portal venous air There is no mass or hydronephrosis of either kidney. There does appear to be nephrolithiasis. The aorta, adrenals, pancreas are unremarkable The spleen is unremarkable The gallbladder has been removed. The pelvis shows no mass or adenopathy. The prostate is enlarged. The appendix is not seen. The cecum measures 13 cm in greatest dimension A Graham catheter is seen in the urinary bladder IMPRESSION: SIGNIFICANT LARGE BOWEL DISTENTION QUESTION OF EARLY COLONIC PNEUMATOSIS INTESTINALIS SURGICAL OPINION IS SUGGESTED Hakan Vela MD 02/18/19 [id number] Thank you for allowing us to participate in the care of your patient.
[2019-02-18] MEDS ORDERED: Potassium Chloride 20 MEQ in Premix Bag 1 BAG IV ONE (13:13)
--- NOTE | 2019-02-18 14:24 | PCM.SN ---
- Free Text/Narrative Note: abd CT shows Intestinalis Pneumotosis, Consulted with [facility] [place] Surgeon Dr Perdomo, and given Age, frailty, comorbid condition will not survive hospital discharge and recommended pallative care. Discusssed case with family at bedside, gave full report and they agree with plan. Will make comfort care here for the time being at [facility]. morphine, anti-emetics, no lab draws, robinol, Expectant mgt
[2019-02-18] MEDS ORDERED: Glycopyrrolate 0.2 MG/ML 5 ML MDV IVPUSH PRN (14:25)
[2019-02-18] MEDS ORDERED: Sodium Chloride 0.9% 250 ML IV SCH (15:30)
[2019-02-18] MEDS: Morphine 2 MG/ML Syringe IVPUSH PRN (23:18)
[2019-02-18] MEDS: Ondansetron 4 MG/2 ML SDV IVPUSH PRN (23:18)
[2019-02-19] MEDS: Morphine 2 MG/ML Syringe IVPUSH PRN (01:19)
[2019-02-19] MEDS: Furosemide 20 MG Tab PO SCH (09:36)
[2019-02-19] MEDS ORDERED: Morphine 2 MG/ML Syringe IVPUSH PRN (13:12)
[2019-02-20] MEDS: Furosemide 20 MG Tab PO SCH (09:04)
[2019-02-20] MEDS ORDERED: LORazepam 2 MG/ML SDV IVPUSH PRN (10:15)
--- NOTE | 2019-02-20 10:39 | PCM.PN ---
- General Info Date of Service: 02/20/19 Functional Status: Reports: Pain Controlled, Tolerating Diet, Urinating. Denies : Ambulating, New Symptoms - Review of Systems General: Reports: Weakness, Fatigue, Malaise. Denies: Chills HEENT: Reports: No Symptoms Pulmonary: Denies: Shortness of Breath, Cough, Sputum Cardiovascular: Denies: Lightheadedness Gastrointestinal: Reports: Difficulty Swallowing. Denies: Abdominal Pain, Constipation, Nausea, Vomiting Genitourinary: Reports: Other (ruiz catherter) Musculoskeletal: Reports: Back Pain Skin: Reports: Pallor Neurological: Reports: Confusion, Pre-Existing Deficit, Difficulty Walking, Weakness, Gait Disturbance. Denies: Dizziness, Seizure, Tremors - Patient Data Vitals - Most Recent: Last Vital Signs Temp 97.8 F 02/20/19 06:40 Pulse 92 02/20/19 06:40 Resp 24 H 02/20/19 06:40 BP 127/77 02/20/19 06:40 Pulse Ox 93 L 02/20/19 06:40 Weight - Most Recent: 168 lb 12.8 oz I&O - Last 24 Hours: Intake & Output 02/19/19 02/20/19 02/20/19 22:59 06:59 14:59 Intake Total 100 Output Total 300 150 Balance -200 -150 Med Orders - Current: Current Medications Acetaminophen (Tylenol Arthritis Pain) 650 mg PO Q8H PRN PRN Reason: Pain/Fever Last Admin: 02/18/19 00:33 Dose: 650 mg Bisacodyl (Dulcolax) 5 - 10 mg PO ASDIRECTED PRN PRN Reason: Constipation Last Admin: 02/15/19 17:45 Dose: 10 mg Furosemide (Lasix) 30 mg PO DAILY [facility] Last Admin: 02/20/19 09:04 Dose: 30 mg Glycopyrrolate (Robinul) 0.1 mg IVPUSH Q8H PRN PRN Reason: secretions Lorazepam (Ativan) 0.25 mg IVPUSH Q8H PRN PRN Reason: Agitation Morphine Sulfate (Morphine) 1 mg IVPUSH Q4HR [facility] Ondansetron HCl (Zofran) 4 mg IVPUSH Q4H PRN PRN Reason: Nausea/Vomiting Last Admin: 02/18/19 23:18 Dose: 4 mg Ramelteon (Rozerem) 8 mg PO BEDTIME PRN PRN Reason: Insomnia Discontinued Medications Ascorbic Acid (Vitamin C) 500 mg PO DAILY [facility] Last Admin: 02/18/19 09:09 Dose: 500 mg Carvedilol (Coreg) 3.125 mg PO BIDMEALS [facility] Last Admin: 02/17/19 08:28 Dose: 3.125 mg Cholecalciferol (Vitamin D3) 50 mcg PO DAILY [facility] Last Admin: 02/18/19 09:09 Dose: 50 mcg Enoxaparin Sodium (Lovenox) 40 mg SUBCUT Q24H [facility] Last Admin: 02/15/19 09:02 Dose: 40 mg Furosemide (Lasix) 40 mg IVPUSH NOW ONE Stop: 02/15/19 16:01 Furosemide (Lasix) 40 mg PO ONETIME ONE Stop: 02/15/19 16:01 Last Admin: 02/15/19 15:50 Dose: 40 mg Furosemide (Lasix) 40 mg PO ONETIME ONE Stop: 02/17/19 16:01 Last Admin: 02/17/19 15:58 Dose: 40 mg Sodium Chloride (Normal Saline) 50 mls @ 200 mls/min IV ASDIRECTED [facility] Last Admin: 02/18/19 15:56 Dose: 200 mls/min Potassium Chloride 20 meq/ (Premix) 100 mls @ 50 mls/hr IV ONETIME ONE Stop: 02/18/19 15:12 Last Admin: 02/18/19 14:00 Dose: 50 mls/hr Sodium Chloride (Normal Saline) 250 mls @ 35 mls/hr IV ASDIRECTED [facility] Last Admin: 02/18/19 14:00 Dose: 35 mls/hr Iopamidol (Isovue-370 (76%)) 100 ml IV ONETIME ONE Stop: 02/18/19 11:16 Last Admin: 02/18/19 15:55 Dose: 75 ml Lisinopril (Prinivil) 2.5 mg PO DAILY [facility] Last Admin: 02/18/19 09:08 Dose: 2.5 mg Magnesium Citrate (Citrate Of Magnesia) 150 ml PO ONETIME ONE Stop: 02/16/19 10:56 Last Admin: 02/16/19 11:34 Dose: Not Given Morphine Sulfate (Morphine) 1 - 2 mg IVPUSH Q2H PRN PRN Reason: pain, Last Admin: 02/19/19 01:19 Dose: 2 mg Morphine Sulfate (Morphine) 1 mg IVPUSH Q30M PRN PRN Reason: Pain Multivitamins/Minerals (Ocuvite) 1 each PO DAILY [facility] Last Admin: 02/18/19 09:10 Dose: 1 each Iron Bestrong - Ptom 1 each SL DAILY [facility] Iron Bestrong - Ptom 1 each SL DAILY [facility] Last Admin: 02/18/19 09:11 Dose: 1 each Patient's Own (Medication D-Mannose) 0 each PO BID [facility] Last Admin: 02/18/19 09:10 Dose: 1 each Patient's Own (Medication Cran-Max) 0 each PO DAILY [facility] Last Admin: 02/18/19 09:10 Dose: 1 each Potassium Chloride (Klor-Con M20) 20 meq PO DAILY [facility] Last Admin: 02/18/19 09:09 Dose: 20 meq Ramelteon (Rozerem) 8 mg PO BEDTIME [facility] Last Admin: 02/19/19 21:41 Dose: 8 mg Simethicone (Simethicone) 80 mg PO Q4H PRN PRN Reason: Gas Last Admin: 02/17/19 21:40 Dose: 80 mg Sodium Chloride (Saline Flush) 10 ml FLUSH Q8HR PRN PRN Reason: keep vein open Last Admin: 02/11/19 08:32 Dose: 10 ml - Exam Quality Assessment: No: Supplemental Oxygen General: Alert, Oriented (Alert to name and place,), No Acute Distress Neck: No: JVD Lungs: Rhonchi. No: Wheezing Cardiovascular: Regular Rate, Regular Rhythm GI/Abdominal Exam: Distended (Significant abdominal distention, very taut), Rigid, Other (tympanic bowel tones). No: Tender (Male) Exam: Deferred Extremities: Pedal Edema Peripheral Pulses: 2+: Radial (L), Radial (R) Skin: No: Rash Neurological: Normal Tone, Sensation Intact Psy/Mental Status: Alert, Normal Mood, Labile Mood - Problem List Review Problem List Initiated/Reviewed/Updated: Yes - My Orders Last 24 Hours: My Active Orders 02/20/19 10:15 LORazepam [Ativan] 0.25 mg IVPUSH Q8H PRN Ramelteon [Rozerem] 8 mg PO BEDTIME PRN 02/20/19 16:00 Morphine 1 mg IVPUSH Q4HR - Plan Plan:: History of present Illness Yasir is a 88 year old male was initially admitted by Callie ANDREW due to shortness of breath--seem to be worse on lying down, slowly getting worse over last several days to weeks. He also noticed approximately 5 pound weight gain in the past 2 weeks. In asking the past to weigh himself however he has done this inconsistently. Lives at home with his elderly spouse and does get checked on by siblings quite frequently. Does have a chronic indwelling Ruiz catheter due to urinary retention at one point he sustained a fall approximately one month ago that the daughter contributes to over diuresing. his clinical workup included a weight gain of ~5# past 2 weeks, BNP 1610. He was admitted mainly for diuresing Acute care hospital course patient's hospital course went fairly well liver he did sustain low BP upon initiating low-dose MIGUELITO inhibitor and beta kobi therapy. he lost approximately 7 pounds, his lungs clear and he had less edema in his legs. did have a BNP of 1610 on admission--that seem to correlate with his respiratory symptoms and his his hypervolemic state. day 1 patient was made a DNR, he remained on telemetry, initially upon admission had several 10-beat runs of V. tach, strips were reviewed by me and although seems slightly narrow, morphological was consistent with V. tach. upon initiating beta kobi therapy and diuretic therapy he no longer had V. tach. 40 mg IV Lasix was given @0200 in am due to PND, diuresed well. day 2 patient felt better, slightly low BP since MIGUELITO inhibitor and beta kobi however asymptomatic. Lost 2 more pound, (total wt loss 9lbs) output -650ml. EKG y NSR, much less PVCs, no more V. tach. slept better since placed on Rozerum. physical therapy evaluated the patient and was determined he has significant decrease in functional mobility and recommended swing bed therapy. is telemetry was removed, held lasix 2/2 Hypotension, reduced lisinopril to 2.5 mg . Flu shot was given, started LMWH once his stools returned back negative. Stop date placed until more functional mobility. Update, patient started having abdominal distention and subsequent abd CT demonstrated significant Intestinalis Pneumotosis, with significant large bowel distention, moderate colonic diverticular, with suspected intrinsic lesion of colon, Consulted with [facility] [place] Surgeon Dr Perdomo, and given Age, frailty, co-morbid condition, heart failure, will not survive hospital stay/discharge and recommended pallative care. Ongoing discussion with family, agree for comfort care and expectant management. Primary SNF problems --Intestinalis Pneumotosis, significant, Chronic problems --Heart failure, clinical, symptom based appears NYHA III --Impaired functional mobility, quite significant, --Disuse edema, BLE, Miguelito bandages, ankle pumps, --Anemia, microcytic, hypochromic, mild anisocytosis, EULALIA. Health maintenance --DVT prophylaxis, MIGUELITO wrapes due to disuse edema, --Received influenza vaccination February 09 --Delirium prophylaxis, Rozerum PRN --Discontinued many of patient's medications. Disposition/overall plan Met with family and social work administrator this morning regarding plan. Physical therapy discontinued, patient would require IV morphine for pain, symptomatically dyspnea, IV anxiolytics for agitation which would give him minimal coverage for services here at [facility], refrain from blood draws, Comfort cares, We'll reassess patient's status frequently, home-hospice possibility.
[2019-02-20] MEDS ORDERED: Morphine 2 MG/ML Syringe IVPUSH SCH ×2 (13:00→17:00)
[2019-02-20] MEDS: Ondansetron 4 MG/2 ML SDV IVPUSH PRN (19:53)
[2019-02-20] MEDS: Morphine 2 MG/ML Syringe IVPUSH SCH (20:51)
[2019-02-21] MEDS: Morphine 2 MG/ML Syringe IVPUSH SCH ×6 (00:54→21:04)
[2019-02-21] MEDS ORDERED: Saliva Substitute Oral Spray 120 ML Bottle MUCMEM PRN (09:38)
--- NOTE | 2019-02-21 11:29 | PCM.PN ---
- General Info Date of Service: 02/21/19 Functional Status: Reports: Pain Controlled, Urinating (ruiz catheter). Denies : Tolerating Diet, Ambulating - Review of Systems General: Reports: Weakness, Fatigue, Malaise. Denies: Fever HEENT: Reports: Other (significant dysphagia, with oral secretions) Pulmonary: Reports: Sputum Cardiovascular: Reports: Edema Gastrointestinal: Reports: Abdominal Pain, Decreased Appetite, Difficulty Swallowing. Denies: Nausea, Vomiting Musculoskeletal: Reports: Back Pain Neurological: Denies: Confusion Psychiatric: Denies: Confusion, Agitation - Patient Data Vitals - Most Recent: Last Vital Signs Temp 98.0 F 02/21/19 06:00 Pulse 92 02/21/19 06:00 Resp 24 H 02/21/19 06:00 BP 123/68 02/21/19 06:00 Pulse Ox 95 02/21/19 06:00 Weight - Most Recent: 168 lb 12.8 oz I&O - Last 24 Hours: Intake & Output 02/20/19 02/21/19 02/21/19 22:59 06:59 14:59 Intake Total 0 0 Output Total 100 75 Balance -100 -75 Med Orders - Current: Current Medications Acetaminophen (Tylenol Arthritis Pain) 650 mg PO Q8H PRN PRN Reason: Pain/Fever Last Admin: 02/18/19 00:33 Dose: 650 mg Bisacodyl (Dulcolax) 5 - 10 mg PO ASDIRECTED PRN PRN Reason: Constipation Last Admin: 02/15/19 17:45 Dose: 10 mg Furosemide (Lasix) 30 mg PO DAILY [facility] Last Admin: 02/20/19 09:04 Dose: 30 mg Glycopyrrolate (Robinul) 0.1 mg IVPUSH Q8H PRN PRN Reason: secretions Lorazepam (Ativan) 0.25 mg IVPUSH Q8H PRN PRN Reason: Agitation Morphine Sulfate (Morphine) 1 mg IVPUSH Q1H PRN PRN Reason: Pain Morphine Sulfate (Morphine) 1 mg IVPUSH Q4H [facility] Last Admin: 02/21/19 09:22 Dose: 1 mg Ondansetron HCl (Zofran) 4 mg IVPUSH Q4H PRN PRN Reason: Nausea/Vomiting Last Admin: 02/20/19 19:53 Dose: 4 mg Ramelteon (Rozerem) 8 mg PO BEDTIME PRN PRN Reason: Insomnia Saliva Substitute (Oleg-Stir Oral [place]) 0 ml MUCMEM ASDIRECTED PRN PRN Reason: dry mouth Discontinued Medications Ascorbic Acid (Vitamin C) 500 mg PO DAILY [facility] Last Admin: 02/18/19 09:09 Dose: 500 mg Carvedilol (Coreg) 3.125 mg PO BIDMEALS [facility] Last Admin: 02/17/19 08:28 Dose: 3.125 mg Cholecalciferol (Vitamin D3) 50 mcg PO DAILY [facility] Last Admin: 02/18/19 09:09 Dose: 50 mcg Enoxaparin Sodium (Lovenox) 40 mg SUBCUT Q24H [facility] Last Admin: 02/15/19 09:02 Dose: 40 mg Furosemide (Lasix) 40 mg IVPUSH NOW ONE Stop: 02/15/19 16:01 Furosemide (Lasix) 40 mg PO ONETIME ONE Stop: 02/15/19 16:01 Last Admin: 02/15/19 15:50 Dose: 40 mg Furosemide (Lasix) 40 mg PO ONETIME ONE Stop: 02/17/19 16:01 Last Admin: 02/17/19 15:58 Dose: 40 mg Sodium Chloride (Normal Saline) 50 mls @ 200 mls/min IV ASDIRECTED [facility] Last Admin: 02/18/19 15:56 Dose: 200 mls/min Potassium Chloride 20 meq/ (Premix) 100 mls @ 50 mls/hr IV ONETIME ONE Stop: 02/18/19 15:12 Last Admin: 02/18/19 14:00 Dose: 50 mls/hr Sodium Chloride (Normal Saline) 250 mls @ 35 mls/hr IV ASDIRECTED [facility] Last Admin: 02/18/19 14:00 Dose: 35 mls/hr Iopamidol (Isovue-370 (76%)) 100 ml IV ONETIME ONE Stop: 02/18/19 11:16 Last Admin: 02/18/19 15:55 Dose: 75 ml Lisinopril (Prinivil) 2.5 mg PO DAILY [facility] Last Admin: 02/18/19 09:08 Dose: 2.5 mg Magnesium Citrate (Citrate Of Magnesia) 150 ml PO ONETIME ONE Stop: 02/16/19 10:56 Last Admin: 02/16/19 11:34 Dose: Not Given Morphine Sulfate (Morphine) 1 - 2 mg IVPUSH Q2H PRN PRN Reason: pain, Last Admin: 02/19/19 01:19 Dose: 2 mg Morphine Sulfate (Morphine) 1 mg IVPUSH Q30M PRN PRN Reason: Pain Morphine Sulfate (Morphine) 1 mg IVPUSH Q4HR [facility] Last Admin: 02/20/19 13:21 Dose: 1 mg Morphine Sulfate (Morphine) 1 mg IVPUSH Q4H [facility] Last Admin: 02/20/19 17:04 Dose: 1 mg Multivitamins/Minerals (Ocuvite) 1 each PO DAILY [facility] Last Admin: 02/18/19 09:10 Dose: 1 each Iron Bestrong - Ptom 1 each SL DAILY [facility] Iron Bestrong - Ptom 1 each SL DAILY [facility] Last Admin: 02/18/19 09:11 Dose: 1 each Patient's Own (Medication D-Mannose) 0 each PO BID [facility] Last Admin: 02/18/19 09:10 Dose: 1 each Patient's Own (Medication Cran-Max) 0 each PO DAILY [facility] Last Admin: 02/18/19 09:10 Dose: 1 each Potassium Chloride (Klor-Con M20) 20 meq PO DAILY [facility] Last Admin: 02/18/19 09:09 Dose: 20 meq Ramelteon (Rozerem) 8 mg PO BEDTIME [facility] Last Admin: 02/19/19 21:41 Dose: 8 mg Simethicone (Simethicone) 80 mg PO Q4H PRN PRN Reason: Gas Last Admin: 02/17/19 21:40 Dose: 80 mg Sodium Chloride (Saline Flush) 10 ml FLUSH Q8HR PRN PRN Reason: keep vein open Last Admin: 02/11/19 08:32 Dose: 10 ml - Exam General: Alert, Mild Distress Cardiovascular: Regular Rate, Regular Rhythm GI/Abdominal Exam: Distended, Rigid, Abnormal Bowel Sounds, Other (severe tympanic BS) (Male) Exam: Deferred Extremities: Pedal Edema Psy/Mental Status: No: Agitated - Problem List Review Problem List Initiated/Reviewed/Updated: Yes - My Orders Last 24 Hours: My Active Orders 02/20/19 19:42 Morphine 1 mg IVPUSH Q1H PRN 02/20/19 21:00 Morphine 1 mg IVPUSH Q4H 02/21/19 09:38 Carboxymethylcellulose/Lytes [Oleg-Stir Oral [place]] 0 ml MUCMEM ASDIRECTED PRN - Plan Plan:: History of present Illness Yasir is a 88 year old male was initially admitted by Callie ANDREW due to shortness of breath--seem to be worse on lying down, slowly getting worse over last several days to weeks. He also noticed approximately 5 pound weight gain in the past 2 weeks. In asking the past to weigh himself however he has done this inconsistently. Lives at home with his elderly spouse and does get checked on by siblings quite frequently. Does have a chronic indwelling Ruiz catheter due to urinary retention at one point he sustained a fall approximately one month ago that the daughter contributes to over diuresing. his clinical workup included a weight gain of ~5# past 2 weeks, BNP 1610. He was admitted mainly for diuresing Acute care hospital course patient's hospital course went fairly well liver he did sustain low BP upon initiating low-dose MIGUELITO inhibitor and beta kobi therapy. he lost approximately 7 pounds, his lungs clear and he had less edema in his legs. did have a BNP of 1610 on admission--that seem to correlate with his respiratory symptoms and his his hypervolemic state. day 1 patient was made a DNR, he remained on telemetry, initially upon admission had several 10-beat runs of V. tach, strips were reviewed by me and although seems slightly narrow, morphological was consistent with V. tach. upon initiating beta kobi therapy and diuretic therapy he no longer had V. tach. 40 mg IV Lasix was given @0200 in am due to PND, diuresed well. day 2 patient felt better, slightly low BP since MIGUELITO inhibitor and beta kobi however asymptomatic. Lost 2 more pound, (total wt loss 9lbs) output -650ml. EKG y NSR, much less PVCs, no more V. tach. slept better since placed on Rozerum. physical therapy evaluated the patient and was determined he has significant decrease in functional mobility and recommended swing bed therapy. is telemetry was removed, held lasix 2/2 Hypotension, reduced lisinopril to 2.5 mg . Flu shot was given, started LMWH once his stools returned back negative. Stop date placed until more functional mobility. Update, no overnight calls however did increase morphine and lorazepam--range orders. Primary SNF problems --Intestinalis Pneumotosis, significant, Chronic problems --Heart failure, clinical, symptom based appears NYHA III --Impaired functional mobility, quite significant, --Disuse edema, BLE, Miguelito bandages, --Anemia, microcytic, hypochromic, mild anisocytosis, EULALIA. Health maintenance --DVT prophylaxis, MIGUELITO wrapes due to disuse edema, --Received influenza vaccination February 09 --Delirium prophylaxis, Rozerum PRN --Discontinued many of patient's medications. Disposition/overall plan ongoing meeting with family at bedside. Provided family all update. Patient in critical grade condition. Increase glycopyrrolate, suction, anti-emetics added , reduce head of bed to 15-20. Change Lasix to IV and reduce to 20mg daily
[2019-02-21] MEDS: Furosemide 20 MG Tab PO SCH (11:55)
[2019-02-21] MEDS: Furosemide 40 MG/4 ML VIAL IVPUSH SCH (12:01)
[2019-02-21] MEDS: Glycopyrrolate 0.2 MG/ML 5 ML MDV IVPUSH PRN (12:06)
[2019-02-21] MEDS: Morphine 2 MG/ML Syringe IVPUSH PRN (14:55)
[2019-02-22] MEDS: Morphine 2 MG/ML Syringe IVPUSH SCH ×6 (00:42→21:57)
[2019-02-22] MEDS: Glycopyrrolate 0.2 MG/ML 5 ML MDV IVPUSH PRN (01:44)
[2019-02-22] MEDS: Sodium Chloride 0.9% 10 ML Syringe FLUSH PRN ×6 (01:46→12:44)
[2019-02-22] MEDS: Morphine 2 MG/ML Syringe IVPUSH PRN ×3 (03:30→19:52)
[2019-02-22] MEDS: Furosemide 40 MG/4 ML VIAL IVPUSH SCH (09:15)
[2019-02-23] MEDS: Morphine 2 MG/ML Syringe IVPUSH SCH ×6 (01:58→20:14)
[2019-02-23] MEDS: Morphine 2 MG/ML Syringe IVPUSH PRN ×3 (02:38→12:02)
[2019-02-23] MEDS: Furosemide 40 MG/4 ML VIAL IVPUSH SCH (09:49)
[2019-02-24] MEDS: Morphine 2 MG/ML Syringe IVPUSH SCH ×3 (00:35→09:08)
[2019-02-24] MEDS: Morphine 2 MG/ML Syringe IVPUSH PRN ×5 (03:24→11:51)
[2019-02-24] MEDS: Sodium Chloride 0.9% 10 ML Syringe FLUSH PRN ×2 (07:33→11:00)
[2019-02-24] MEDS: Glycopyrrolate 0.2 MG/ML 5 ML MDV IVPUSH PRN (07:54)
[2019-02-24] MEDS: Furosemide 40 MG/4 ML VIAL IVPUSH SCH (11:00)
--- NOTE | 2019-03-03 10:23 | PCM.DCSUM1 ---
Discharge Summary - Hospital Course Diagnosis: Stroke: No - Discharge Data Discharge Date: 02/24/19 Discharge Disposition: 20 Condition: - Referral to Home Health Primary Care Physician: Jean Kaur NP - Patient Summary/Data Consults: Consultations 02/10/19 08:53 Consult to Physical Therapy [PT Evaluation and Treatment] [CONS] Routine - Discharge Plan *PRESCRIPTION DRUG MONITORING PROGRAM REVIEWED*: Not Applicable *COPY OF PRESCRIPTION DRUG MONITORING REPORT IN PATIENT CRISTY: Not Applicable Home Medications: Home Meds Potassium Chloride [Klor-Con M20] 20 meq PO DAILY #60 tab.er 07/28/17 [Rx] Furosemide [Lasix] 20 mg PO DAILY 12/02/18 [History] Ketoconazole [Nizoral 2% Crm] 1 applic TOP DAILY PRN 12/02/18 [History] Acetaminophen [Tylenol Arthritis] 650 mg PO Q8H PRN 02/07/19 [History] tiZANidine [Zanaflex] 4 mg PO BEDTIME PRN 02/07/19 [History] Ascorbic Acid/Ascorbate Sodium [Vitamin C 250 mg Tablet Chew] 2 tab PO DAILY 08/26 [History] Cholecalciferol (Vitamin D3) [Vitamin D3] 5,000 unit PO DAILY 02/10/19 [History] Patient's Own Medication [Ptom] 1 applicful SL DAILY 02/10/19 [History] Vit A/Vit C/Vit E/Zinc/Copper [Preservision] 1 tab PO DAILY 02/10/19 [History] - Discharge Summary/Plan Comment DC Time >30 min.: No Discharge Summary/Plan Comment: Final diagnosis --Intestinalis Pneumotosis, --Heart failure, clinical/symptom-based appears NYHA III History Yasir was a 88 year old male was initially admitted by Callie ANDREW due to shortness of breath--seem to be worse on lying down, slowly getting worse over last several days to weeks. He also noticed approximately 5 pound weight gain in the past 2 weeks. He had resided at home with his elderly spouse and had great family support from siblings who cared for him deeply and was very attentive to his needs since moving [place] years ago. His last 2 years of his life he did suffer from acute urinary retention requiring indwelling Graham catheter frequent urological visits for change out. ~ 1 month prior to his recent hospitalization he had sustained a fall that the daughter contributed to dehydration. He was admitted 2/2 weight gain of ~5# past 2 weeks, BNP 1610. He was admitted mainly for diuresing. He was eventually placed in swing bed for rehabilitation and physical therapy. Hospital/SNF course Patient had significant weakness and physical therapy did not feel he was progressing very much in regard to his functional status and mobility. He had vacillating periods where he would be "good for 1 day" then would regress then next day regarding functional status. He did become constipated however did start having bowel movements. He did start having some abdominal distention and a subsequent CT demonstrated patient to have Intestinalis Pneumotosis, surgical consult was placed with Vadito 1 call and due to age, functionality, patient was not a candidate for surgical intervention. Long discussions with supportive family for expectant management for comfort cares. Range orders were given for morphine and lorazepam. Other comfort measures ioncluded increasing glycopyrrolate, suction, anti-emetics, reduce head of bed to 15-20. The patient peacefully with family nearby. - Patient Data Vitals - Most Recent: Last Vital Signs Temp 97.1 F 02/24/19 06:18 Pulse 72 02/24/19 06:18 Resp 24 H 02/24/19 06:18 BP 102/59 L 02/24/19 06:18 Pulse Ox 94 L 02/24/19 06:18 Weight - Most Recent: 171 lb 11.2 oz Med Orders - Current: Current Medications Discontinued Medications Acetaminophen (Tylenol Arthritis Pain) 650 mg PO Q8H PRN PRN Reason: Pain/Fever Last Admin: 02/18/19 00:33 Dose: 650 mg Ascorbic Acid (Vitamin C) 500 mg PO DAILY [facility] Last Admin: 02/18/19 09:09 Dose: 500 mg Bisacodyl (Dulcolax) 5 - 10 mg PO ASDIRECTED PRN PRN Reason: Constipation Last Admin: 02/15/19 17:45 Dose: 10 mg Carvedilol (Coreg) 3.125 mg PO BIDMEALS [facility] Last Admin: 02/17/19 08:28 Dose: 3.125 mg Cholecalciferol (Vitamin D3) 50 mcg PO DAILY [facility] Last Admin: 02/18/19 09:09 Dose: 50 mcg Enoxaparin Sodium (Lovenox) 40 mg SUBCUT Q24H [facility] Last Admin: 02/15/19 09:02 Dose: 40 mg Furosemide (Lasix) 30 mg PO DAILY [facility] Last Admin: 02/21/19 11:55 Dose: Not Given Furosemide (Lasix) 40 mg IVPUSH NOW ONE Stop: 02/15/19 16:01 Furosemide (Lasix) 40 mg PO ONETIME ONE Stop: 02/15/19 16:01 Last Admin: 02/15/19 15:50 Dose: 40 mg Furosemide (Lasix) 40 mg PO ONETIME ONE Stop: 02/17/19 16:01 Last Admin: 02/17/19 15:58 Dose: 40 mg Furosemide (Lasix) 20 mg IVPUSH DAILY [facility] Last Admin: 02/24/19 11:00 Dose: 20 mg Glycopyrrolate (Robinul) 0.1 mg IVPUSH Q8H PRN PRN Reason: secretions Glycopyrrolate (Robinul) 0.1 mg IVPUSH Q4H PRN PRN Reason: secretions Last Admin: 02/24/19 07:54 Dose: 0.1 mg Sodium Chloride (Normal Saline) 50 mls @ 200 mls/min IV ASDIRECTED [facility] Last Admin: 02/18/19 15:56 Dose: 200 mls/min Potassium Chloride 20 meq/ (Premix) 100 mls @ 50 mls/hr IV ONETIME ONE Stop: 02/18/19 15:12 Last Admin: 02/18/19 14:00 Dose: 50 mls/hr Sodium Chloride (Normal Saline) 250 mls @ 35 mls/hr IV ASDIRECTED [facility] Last Admin: 02/18/19 14:00 Dose: 35 mls/hr Iopamidol (Isovue-370 (76%)) 100 ml IV ONETIME ONE Stop: 02/18/19 11:16 Last Admin: 02/18/19 15:55 Dose: 75 ml Lisinopril (Prinivil) 2.5 mg PO DAILY [facility] Last Admin: 02/18/19 09:08 Dose: 2.5 mg Lorazepam (Ativan) 0.25 mg IVPUSH Q8H PRN PRN Reason: Agitation Last Admin: 02/24/19 09:11 Dose: 0.25 mg Magnesium Citrate (Citrate Of Magnesia) 150 ml PO ONETIME ONE Stop: 02/16/19 10:56 Last Admin: 02/16/19 11:34 Dose: Not Given Morphine Sulfate (Morphine) 1 - 2 mg IVPUSH Q2H PRN PRN Reason: pain, Last Admin: 02/19/19 01:19 Dose: 2 mg Morphine Sulfate (Morphine) 1 mg IVPUSH Q30M PRN PRN Reason: Pain Morphine Sulfate (Morphine) 1 mg IVPUSH Q4HR [facility] Last Admin: 02/20/19 13:21 Dose: 1 mg Morphine Sulfate (Morphine) 1 mg IVPUSH Q4H [facility] Last Admin: 02/20/19 17:04 Dose: 1 mg Morphine Sulfate (Morphine) 1 mg IVPUSH Q1H PRN PRN Reason: Pain Last Admin: 02/24/19 11:51 Dose: 1 mg Morphine Sulfate (Morphine) 1 mg IVPUSH Q4H [facility] Last Admin: 02/24/19 09:08 Dose: 1 mg Multivitamins/Minerals (Ocuvite) 1 each PO DAILY [facility] Last Admin: 02/18/19 09:10 Dose: 1 each Ondansetron HCl (Zofran) 4 mg IVPUSH Q4H PRN PRN Reason: Nausea/Vomiting Last Admin: 02/20/19 19:53 Dose: 4 mg Iron Bestrong - Ptom 1 each SL DAILY [facility] Iron Bestrong - Ptom 1 each SL DAILY [facility] Last Admin: 02/18/19 09:11 Dose: 1 each Patient's Own (Medication D-Mannose) 0 each PO BID [facility] Last Admin: 02/18/19 09:10 Dose: 1 each Patient's Own (Medication Cran-Max) 0 each PO DAILY [facility] Last Admin: 02/18/19 09:10 Dose: 1 each Potassium Chloride (Klor-Con M20) 20 meq PO DAILY [facility] Last Admin: 02/18/19 09:09 Dose: 20 meq Ramelteon (Rozerem) 8 mg PO BEDTIME [facility] Last Admin: 02/19/19 21:41 Dose: 8 mg Ramelteon (Rozerem) 8 mg PO BEDTIME PRN PRN Reason: Insomnia Saliva Substitute (Oleg-Stir Oral [place]) 0 ml MUCMEM ASDIRECTED PRN PRN Reason: dry mouth Last Admin: 02/21/19 12:07 Dose: 1 spray Simethicone (Simethicone) 80 mg PO Q4H PRN PRN Reason: Gas Last Admin: 02/17/19 21:40 Dose: 80 mg Sodium Chloride (Saline Flush) 10 ml FLUSH Q8HR PRN PRN Reason: keep vein open Last Admin: 02/11/19 08:32 Dose: 10 ml Sodium Chloride (Saline Flush) 10 ml FLUSH Q1H PRN PRN Reason: IV Use Last Admin: 02/24/19 11:00 Dose: 10 ml
== END 2019-02-24 12:15 | disposition expired | DRG 948 ==
LOC: KA.MS 08:53
PROVIDERS: ADMIT Nurse Practitioner Family; ATTEND Nurse Practitioner Family
DX: R53.1 Weakness (principal); E87.1 Hypo-osmolality and hyponatremia; I50.9 Heart failure, unspecified; Z66 Do not resuscitate; D50.9 Iron deficiency anemia, unspecified; I95.2 Hypotension due to drugs; T50.1X5A Adverse effect of loop [high-ceiling] diuretics, initial encounter; Z51.5 Encounter for palliative care; N40.1 Benign prostatic hyperplasia with lower urinary tract symptoms; R33.8 Other retention of urine; R33.9 Retention of urine, unspecified; H91.90 Unspecified hearing loss, unspecified ear; K63.89 Other specified diseases of intestine; H54.7 Unspecified visual loss; F03.90 Unspecified dementia, unspecified severity, without behavioral disturbance, psychotic disturbance, mood disturbance, and anxiety; Z85.820 Personal history of malignant melanoma of skin; Z98.49 Cataract extraction status, unspecified eye; Z90.49 Acquired absence of other specified parts of digestive tract; I25.2 Old myocardial infarction; Z79.899 Other long term (current) drug therapy; Z96.0 Presence of urogenital implants
CPT/HCPCS: 36415; 74177; 80048; 83880; 85025; 85027; 97110-GP; 97162-GP; A9270-GY; J1650; J1940; J2060; J2270; J2405; J3480; J3490; J7050; Q9967